=== PATIENT | male | born 1960 | race African-American/Black ===

== ENCOUNTER 2021-10-08 10:32 | Emergency (ER) | payer OTHER, SELFPAY ==
--- NOTE | ~2021-10-08 | XR_ITS ---
EXAMINATION: XR chest 1V portable DATE: 10/08/2021 12:31 INDICATION: Fall. COVID-19 positive. TECHNIQUE: A single frontal view of the chest was obtained. COMPARISON: None. FINDINGS: The chest demonstrates clear lungs without pneumonia, pleural effusion, or pneumothorax. Th e heart size is normal. Median sternotomy wires are noted. IMPRESSION: 1. No acute cardiopulmonary disease. Reviewed, dictated and finalized at location A. T PLANT RESEARCH TECHNICIAN
--- NOTE | ~2021-10-08 | CT_ITS ---
EXAMINATION: CT brain wo con EXAM DATE: 10/08/2021 11:55 INDICATION: Fall, head injury. TECHNIQUE: Spiral CT of the head was performed without contrast. Axial, coronal and sagittal images were reviewed. The dose-length product (DLP) for this examination was 605.33 mGy-cm. The exposure w as tailored according to patient size, and iterative reconstruction (ASIR) was used as additional dos e reduction technique. There is no prior study for comparison. FINDINGS: There is no acute intraparenchymal hemorrhage. No evidence of intraparenchymal brain mass lesion. No evidence of acute infarction. Please note that initial head CT has limited sensitivity f or small or acute infarctions. Moderate size old right temporoparietal lobe infarction. There is mi ld periventricular and subcortical hypodensity, nonspecific but probably related to small vessel isch emic disease. There is moderate prominence of the sulci and ventricles related to cerebral atrophy. There is intracranial carotid arteriosclerosis. There are no extra-axial collections. There is n o mass effect or midline shift. The orbits are unremarkable. Soft tissue is unremarkable. The visu alized sinuses and mastoid air cells are well aerated. IMPRESSION: 1. No acute intracranial findings. 2. Chronic age related findings. 3. Moderate-sized old right temporoparietal lobe infarction. Reviewed, dictated and finalized at location G. ER HELPER
[2021-10-08 10:35] VITALS: BP 90/55; PULSE 69; RESP 15; TEMP 36.2; O2SAT 100
--- NOTE | 2021-10-08 10:59 | ED.FALL ---
HPI - Fall General Chief Complaint: Fall Stated Complaint: fall Time Seen by Provider: 10/08/21 10:34 Source: patient Mode of arrival: EMS Limitations: language barrier History of Present Illness HPI Narrative: Patient is a 60-year-old male presenting to our facility after he slipped out of a chair at a correction. Patient was brought in for evaluation via EMS. Patient is nonverbal at baseline. Per chart review, patient was recently hospitalized at [facility], [place]. He has a history of hypertension, chronic kidney disease, type 2 diabetes, CVA with dysphagia. Of note, he is Covid positive. I spoke to the nurse at the facility, and she states that the patient was found on the floor near to his wheelchair as if he had slipped out of the chair this morning. Pt was alert. No vomiting. He did eat breakfast this morning. Pt otherwise acting normally. At bedside, patient can answer simple questions, follows commands. No focal deficits on exam. History otherwise is limited secondary to his difficulty with speech. Related Data Home Medications Medication Instructions Recorded Confirmed Lactobacillus acidoph-pectin 1 cap PO DAILY 10/08/21 [Acidophilus-Pectin] acetaminophen 500 mg PO Q4H PRN 10/08/21 atorvastatin 40 mg PO DAILY 10/08/21 citalopram 20 mg PO DAILY 10/08/21 famotidine 20 mg PO DAILY 10/08/21 ferrous sulfate 325 mg PO DAILY 10/08/21 hydroxyzine HCl 50 mg PO HS 10/08/21 insulin detemir U-100 [Levemir 18 unit SUBCUT HS 10/08/21 FlexTouch U-100 Insuln] lisinopril 5 mg PO DAILY 10/08/21 metformin 750 mg PO BID 10/08/21 mupirocin 1 applic TOPICAL BID 10/08/21 risperidone 2 mg PO BID 10/08/21 sulfamethoxazole-trimethoprim 1 tablet PO Q12H 10/08/21 Allergies Allergy/AdvReac Type Severity Reaction Status Date / Time No Known Allergies Allergy Verified 10/08/21 10:39 Review of Systems Review of Systems: ROS unobtainable: Yes unobtainable due to medical condition (dysphagia, cva) Exam Narrative: GENERAL: Awake, alert, minimally verbal HEAD: Normocephalic, atraumatic. EYES: PERRLA and EOMI. ENT: Nares clear, no rhinorrhea or epistaxis. Mucous membranes moist. NECK: Supple. CHEST: No respiratory distress, breathing even and non labored HEART: Regular rate, sinus rhythm ABDOMEN:Non distended, does not grimace with palpation of the abdomen EXTREMITIES: Normal range of motion. No edema. SKIN: Warm, dry, no rash. NEURO:No focal deficits. Alert and oriented x1 Course Vital Signs Vital signs: Vital Signs Temperature 36.2 C L 10/08/21 10:35 Pulse Rate 69 10/08/21 10:35 Respiratory Rate 15 10/08/21 10:35 Blood Pressure 90/55 L 10/08/21 10:35 Pulse Oximetry 100 10/08/21 10:35 Temperature 36.2 C L 10/08/21 10:35 Pulse Rate 81 10/08/21 13:55 Respiratory Rate 20 10/08/21 13:55 Blood Pressure 151/82 H 10/08/21 13:55 Pulse Oximetry 99 10/08/21 13:55 MDM - Fall MDM Narrative Medical decision making narrative: Patient presenting for evaluation after he may have fallen from his wheelchair. At the time of his chest pain, ABCs are intact, vital signs are notable for mild hypotension. Patient is otherwise mentating at baseline, not really able to participate much in the history secondary to his CVA, aphasia, but is able to answer some simple questions, denies any pain, states he needs to go to the bathroom. Laboratory results are reassuring. Mild anemia. No electrolyte derangement. Chest x-ray is without acute cardiopulmonary abnormality, this is reassuring especially given the patient's Covid diagnosis. Patient's hypotension improved following administration of IV fluids. He is afebrile. There is no leukocytosis. Low suspicion for urinary tract infection as patient is altered, febrile, cardiac, does not have any reported pain. I did speak with the care facility, they he has not had any nausea, vomiting, fever or other concerning symptoms. They wanted to ensure he was
--- NOTE | 2021-10-08 11:27 | ECG_ITS ---
Measurements Intervals [place] Rate: 75 P: 90 [place]: 140 QRS: 54 QRSD: 90 T: 96 QT: 427 QTc: 478 Interpretive Statements SINUS RHYTHM MODERATE T-WAVE ABNORMALITY, CONSIDER ANTERIOR ISCHEMIA [-0.1+ mV T WAVE IN V3/V4] ANTEROSEPTAL ST ABNORMALITY, CONSIDER INJURY PATTERN NO PREVIOUS ECG AVAILABLE FOR COMPARISON Electronically Signed On 10-08-2021 13:42:04 ORTHOPEDICS TEACHER by Travis Gonzales M.D.
[2021-10-08] MEDS: SODIUM CHLORIDE 0.9% IV 1,000 ML 999 ML IV CONT (12:45)
[2021-10-08 13:11] LABS: Basophils Percent Auto 0.4 % (0.2-1.2); Eosinophils Absolute Auto 0.3 K/mm3 (0-0.3); Eosinophils Percent Auto 3.1 % (0-4.4); Hematocrit 32.4 % (42.0-52.0); Immature Granulocyte Absolute 0.03 K/mm3 (0.00-0.031); Immature Granulocyte Percent A 0.3 % (0-0.5); Mean Corpuscular HGB Conc 30.9 g/dl (32-36); Mean Corpuscular Volume 87.6 fl (80-100); Mean Platelet Volume 9.3 fl (7.4-10.4); Monocytes Absolute Auto 0.7 K/mm3 (0.1-0.6); Neutrophils Percent Auto 76.2 % (45.5-73.1); Platelet Count Result 360 k/mm3 (150-375); Red Cell Distribution Width 13.4 % (11.5-14.5); White Blood Count 9.2 K/mm3 (4.5-10.0)
[2021-10-08 13:20] LABS: Anion Gap 6 mmol/L (8-16); Blood Urea Nitrogen 19 mg/dL (9-20); Calcium 8.8 mg/dL (8.4-10.2); Carbon Dioxide 27 mmol/L (22-30); Chloride 105 mmol/L (98-107); Estimated CRCL calculation 65 ml/min; Estimated Glomerular Filt Rate > 60; Glucose 210 mg/dL (65-110); Potassium 4.4 mmol/L (3.4-5.0); Sodium 138 mmol/L (137-145)
[2021-10-08 13:55] VITALS: BP 151/82; PULSE 81; RESP 20; O2SAT 99
--- NOTE | 2021-10-08 14:00 | PC.NURSE ---
This nurse gave report to Raven at [facility] for the pt discharge and received verbal understanding
--- NOTE | 2021-10-08 14:10 | PC.NURSE ---
Pt found standing up, naked at the side of the bed. Pt found by charge nurse Mattie MEYERS. This nurse and Mattie MEYERS redirected pt back into the bed and instructed the pt to stay in the bed. Pt minimally redirectable, placed on a bed alarm, and a sitter is now at the bedside for observation.
[2021-10-08 14:51] VITALS: BP 134/85; PULSE 76; RESP 16; O2SAT 100
[2021-10-08 18:17] VITALS: BP 151/86; PULSE 67; RESP 18; O2SAT 99
--- NOTE | 2021-10-08 19:03 | PC.NURSE ---
called mast eta 1425, eta 1425, mast here 1539/called away due to 911 call, updated 1750 eta at 1835, update 1900 eta 15 to 20 min.
== END 2021-10-08 19:20 ==
PROVIDERS: Emergency Provider Emergency Medicine; PCP Pediatrics Neonatal-Perinatal Medicine
DX: I95.9 Hypotension, unspecified (principal); U07.1 COVID-19; I12.9 Hypertensive chronic kidney disease with stage 1 through stage 4 chronic kidney disease, or unspecified chronic kidney disease; E11.22 Type 2 diabetes mellitus with diabetic chronic kidney disease; N18.9 Chronic kidney disease, unspecified; Z79.4 Long term (current) use of insulin; W19.XXXA Unspecified fall, initial encounter
CPT/HCPCS: 36415; 70450; 71045; 80048; 85025; 93005; 96360; 96361; 99284; J7030

== ENCOUNTER 2021-10-16 22:15 | Emergency (ER) | payer OTHER, SELFPAY ==
--- NOTE | ~2021-10-16 | CT_ITS ---
EXAMINATION: CT brain wo con DATE: 10/16/2021 22:46 INDICATION: Altered mental status TECHNIQUE: Computed tomography (CT) of the head was performed without intravenous contrast. Sagittal and coronal reconstructions were performed. The mA was adjusted according to patient size. Iterative reconstruction technique was employed. The dose-length product was 605.33 mGy-cm. COMPARISON: head CT dated 10/08/2021. FINDINGS: Again seen is a moderate-sized region of encephalomalacia in the right temporoparietal region consist ent with chronic infarct. Additional unchanged small old lacunar infarct at the left basal ganglia in volving the lentiform nucleus, anterior limb of the internal capsule and head of the caudate nucleus. No acute intracranial hemorrhage, acute infarction or abnormal extra axial fluid collection. Symmetr ic prominence of the sulci and ventricles consistent with mild age-appropriate diffuse cerebral volum e loss. No mass/mass effect. The orbits, paranasal sinuses and mastoid air cells are normal. Intracra nial calcified cerebral atherosclerosis is noted. IMPRESSION: 1. No acute intracranial process. 2. Old infarcts in the right temporoparietal region and left basal ganglia. Reviewed, dictated and finalized at location A. HINGE AND LOCK ATTACHER
--- NOTE | ~2021-10-16 | XR_ITS ---
EXAMINATION: XR chest 1V portable DATE: 10/16/2021 22:35 INDICATION: Transient alteration of awareness TECHNIQUE: frontal view of the chest was obtained. COMPARISON: Chest radiograph dated 10/08/2021 FINDINGS: No airspace opacities, pulmonary edema, pleural effusion or pneumothorax. The cardiomediastinal silho uette is normal. Median sternotomy wires and mediastinal surgical clips are seen, likely from prior c oronary artery bypass grafting. There is also coronary artery stenting. IMPRESSION: 1. No acute cardiopulmonary disease. Reviewed, dictated and finalized at location A. OR QA ANALYST
[2021-10-16 22:14] VITALS: BP 135/74; PULSE 70; RESP 20; TEMP 36.8; O2SAT 99
--- NOTE | 2021-10-16 22:22 | ECG_ITS ---
Measurements Intervals [place] Rate: 71 P: 73 [place]: 142 QRS: 19 QRSD: 90 T: 104 QT: 405 QTc: 441 Interpretive Statements SINUS RHYTHM ANTEROSEPTAL ST ABNORMALITY, CONSIDER ISCHEMIA ABNORMAL ECG COMPARED TO ECG 10/08/2021 12:58:45 NO SIGNIFICANT CHANGES Electronically Signed On 10-17-2021 13:52:12 EXHIBITS COORDINATOR by Neil Clifford M.D.
--- NOTE | 2021-10-16 22:51 | ED.NEUROSD ---
HPI - Neuro Symptoms/Deficit General Chief Complaint: Suspected CVA Stated Complaint: code stroke, lkw 1600 Time Seen by Provider: 10/16/21 22:15 Source: EMS Mode of arrival: EMS Limitations: dementia History of Present Illness HPI Narrative: This is a 60 year old male with history CVA who presents for evaluation of altered mental status. It was reported that patient is normally oriented to 1 only. It is reported that he performed physical therapy at 4 pm and that is his reported last known normal. EMS reported staff states patient had unequal medical science liaison strength and he is not acting normally. Patient will not follow commands. According to [facility] notes, they have been performed q 6 hour neuro checks for 3 days for some reason. Related Data Home Medications Medication Instructions Recorded Confirmed Lactobacillus acidoph-pectin 1 cap PO DAILY 10/08/21 [Acidophilus-Pectin] acetaminophen 500 mg PO Q4H PRN 10/08/21 atorvastatin 40 mg PO DAILY 10/08/21 citalopram 20 mg PO DAILY 10/08/21 famotidine 20 mg PO DAILY 10/08/21 ferrous sulfate 325 mg PO DAILY 10/08/21 hydroxyzine HCl 50 mg PO HS 10/08/21 insulin detemir U-100 [Levemir 18 unit SUBCUT HS 10/08/21 FlexTouch U-100 Insuln] lisinopril 5 mg PO DAILY 10/08/21 metformin 750 mg PO BID 10/08/21 mupirocin 1 applic TOPICAL BID 10/08/21 risperidone 2 mg PO BID 10/08/21 sulfamethoxazole-trimethoprim 1 tablet PO Q12H 10/08/21 Allergies Allergy/AdvReac Type Severity Reaction Status Date / Time No Known Allergies Allergy Verified 10/08/21 10:39 Review of Systems Review of Systems: ROS unobtainable: Yes unobtainable due to mental status PMFSH Past Medical History Medical History (Updated 10/17/21 @ 00:54 by Melba De Jesus MD) Chronic kidney disease CVA (cerebral vascular accident) Diabetes Dysphagia Hypertension Exam Const: General: no acute distress Nutritional Appearance: well nourished Orientation/consciousness: Other orientation findings (will track but is not talking) Limitations: altered mental status HENMT: Ears: TM's normal bilaterally Face and sinus: face symmetric Eyes: Pupils: Equal, round and reactive pupils present EOM: EOMs intact bilaterally Resp: Effort & Inspection: normal respiratory effort Auscultation: clear to auscultation bilaterally Cardio: Jugular venous distension: no JVD GI: GI Palp: Yes Soft to palpation, No Tenderness to palpation present (GI) and No Guarding due to palpation present (GI) Neuro: General: Unable to assess gait Cranial nerves: Yes Equal, round and reactive pupils present, Yes Bilaterally intact EOM present and Yes Normal facial strength present Motor exam (neuro): Other motor observations present (hold both arms up, no drift) Course Reevaluation(s) Reevaluation #1: Patient is alert and oriented to person. He states he is at doctors' office. He is able to follow some commands. He has equal medical science liaison strength. non focal exam. Nursing called [facility] and they report sometimes patient will just not talk to anyone. They states physical therapy thought patient was leaning to left but no definite deficit seen. Patient's labs are stable. He appears to be at baseline. Will discharge back to [facility]. Date: 10/17/21 Time: 00:51 Vital Signs Vital signs: Vital Signs Temperature 98.2 F 10/16/21 22:14 Pulse Rate 70 10/16/21 22:14 Respiratory Rate 20 10/16/21 22:14 Blood Pressure 135/74 10/16/21 22:14 Pulse Oximetry 99 10/16/21 22:14 Temperature 97.4 F L 10/17/21 00:40 Pulse Rate 63 10/17/21 00:40 Respiratory Rate 20 10/17/21 00:40 Blood Pressure 135/75 10/17/21 00:40 Pulse Oximetry 97 10/17/21 00:40 MDM - Neuro Symptoms/Deficit Lab Data Attestation: I reviewed the patient's lab results. Result diagrams: 10/16/21 22:52 10/16/21 22:52 Labs: Lab Results 10/16/21 10/16/21 10/16/21 Range/Units 22
[2021-10-16 22:54] VITALS: PULSE 66; RESP 16; O2SAT 100
[2021-10-16] MEDS: SODIUM CHLORIDE 0.9% IV 1,000 ML 999 ML IV CONT (22:54)
[2021-10-16 22:55] VITALS: BP 138/85; PULSE 65; RESP 16; O2SAT 100
[2021-10-16 23:00] LABS: Basophils Absolute Auto 0.1 K/mm3 (0.0-0.1); Basophils Percent Auto 1.5 % (0.2-1.2); Eosinophils Absolute Auto 0.4 K/mm3 (0-0.3); Eosinophils Percent Auto 6.1 % (0-4.4); Hematocrit 29.6 % (42.0-52.0); Hemoglobin 9.3 g/dL (14.0-18.0); Immature Granulocyte Absolute 0.03 K/mm3 (0.00-0.031); Immature Granulocyte Percent A 0.4 % (0-0.5); Lymphocytes Absolute Auto 1.53 K/mm3 (0.9-3.2); Lymphocytes Percent Auto 22.8 % (18.3-44.2); Mean Corpuscular HGB Conc 31.4 g/dl (32-36); Mean Corpuscular Hemoglobin 27.9 pg (26-34); Mean Corpuscular Volume 88.9 fl (80-100); Mean Platelet Volume 9.3 fl (7.4-10.4); Monocytes Absolute Auto 0.7 K/mm3 (0.1-0.6); Monocytes Percent Auto 10.3 % (2.6-8.5); Neutrophils Percent Auto 58.9 % (45.5-73.1); Platelet Count Result 346 k/mm3 (150-375); Red Blood Count 3.33 M/mm3 (4.6-6.20); Red Cell Distribution Width 13.5 % (11.5-14.5); White Blood Count 6.7 K/mm3 (4.5-10.0)
[2021-10-16 23:10] LABS: INR 1.2; Prothrombin Time 14.7 Seconds (11.1-14.7)
[2021-10-16 23:11] LABS: Partial Thromboplastin Time 33.3 SECONDS (22.3-36.8)
[2021-10-16 23:12] LABS: Lactic Acid Reflex 1.2 mmol/L (0.7-2.1)
[2021-10-16 23:13] LABS: Alanine Aminotransferase 14 U/L (4-50); Albumin Level 3.2 g/dL (3.5-5.1); Alkaline Phosphatase 111 U/L (38-126); Anion Gap 3 mmol/L (8-16); Aspartate Amino Transferase 21 U/L (17-59); Bilirubin,Total 0.5 mg/dL (0.2-1.3); Blood Urea Nitrogen 22 mg/dL (9-20); Calcium 8.3 mg/dL (8.4-10.2); Carbon Dioxide 30 mmol/L (22-30); Chloride 104 mmol/L (98-107); Estimated Glomerular Filt Rate > 60; Glucose 235 mg/dL (65-110); Potassium 4.2 mmol/L (3.4-5.0); Sodium 137 mmol/L (137-145)
[2021-10-16 23:14] LABS: Ammonia < 9 umol/L (9-30)
[2021-10-16 23:23] LABS: Lipase 45 U/L (23-300)
[2021-10-16 23:36] LABS: Troponin I < 0.012 ng/mL (0.000-0.034)
[2021-10-16 23:43] VITALS: PULSE 81; RESP 18
[2021-10-16 23:45] VITALS: PULSE 73; RESP 12
[2021-10-17 00:01] VITALS: BP 145/74; PULSE 62; RESP 16
[2021-10-17 00:10] VITALS: PULSE 81; RESP 16
[2021-10-17 00:12] LABS: Add Urine Microscopic? YES; Appearance Urine Clear (Clear); Bilirubin Urine Negative (Negative); Blood Urine Negative (Negative); Color Urine Yellow (Yellow); Glucose Urine UA 3+ mg/dL (Negative); Ketones Urine Negative (Negative); Leukocyte Esterase Ur Negative LEU/UL (Negative); Mucus Urine Rare /lpf; Nitrate Urine Negative (Negative); Protein Urine Negative (Negative); RBC Urine 0-2 /hpf (0-2); Specific Grav Ur 1.024 (1.001-1.035); WBC Urine 0-3 /hpf
[2021-10-17 00:15] VITALS: PULSE 62; RESP 13
[2021-10-17 00:40] VITALS: BP 135/75; PULSE 63; RESP 20; TEMP 36.3; O2SAT 97
[2021-10-17 06:22] LABS: Glucose Point of Care 225 mg/dl (65-105)
== END 2021-10-17 01:20 ==
PROVIDERS: Emergency Provider General Practice; PCP Pediatrics Neonatal-Perinatal Medicine
DX: R41.82 Altered mental status, unspecified (principal); I12.9 Hypertensive chronic kidney disease with stage 1 through stage 4 chronic kidney disease, or unspecified chronic kidney disease; E11.22 Type 2 diabetes mellitus with diabetic chronic kidney disease; N18.9 Chronic kidney disease, unspecified; Z79.4 Long term (current) use of insulin
CPT/HCPCS: 36415; 51701; 70450; 71045; 80053; 81001; 82140; 82948; 83605; 83690; 84484; 85025; 85610; 85730; 93005; 96360; 99284; J7030

== ENCOUNTER 2021-12-27 18:26 | Emergency (ER) | payer OTHER, SELFPAY ==
[2021-12-27] VITALS (10 sets, daily range): BP systolic 113–163; BP diastolic 62–85; PULSE 73; RESP 18; TEMP 35.8; O2SAT 98–100
--- NOTE | ~2021-12-27 | XR_ITS ---
EXAMINATION: XR chest 1V portable DATE: 12/27/2021 19:30 INDICATION: Fall from wheelchair. TECHNIQUE: A single frontal view of the chest was obtained. COMPARISON: Chest single view 10/16/2021 FINDINGS: The chest demonstrates clear lungs without pneumonia, pleural effusion, or pneumothorax. Th e heart size is normal. Median sternotomy wires and mediastinal surgical clips are seen, likely from prior coronary artery bypass grafting. IMPRESSION: 1. No acute cardiopulmonary disease. Reviewed, dictated and finalized at location A.
--- NOTE | ~2021-12-27 | CT_ITS ---
EXAMINATION: CT abdomen pelvis w con DATE: 12/27/2021 23:48 INDICATION: Leukocytosis, nausea and vomiting TECHNIQUE: Computed tomography (CT) of the abdomen and pelvis was performed with 100 mL Omnipaque-300 intravenous contrast. Automated exposure control and iterative reconstruction technique were employe d. The dose-length product was 505.26 mGy-cm. COMPARISON: None FINDINGS: Minimal dependent atelectasis in the bilateral lower lobes. Heart size is normal. Atherosclerotic cor onary artery calcification. Median sternotomy wires and mediastinal clips consistent with coronary ar karina bypass grafting. No pericardial or pleural effusion. Liver, gallbladder, spleen, pancreas, bilat eral adrenal glands and kidneys are normal. No bowel obstruction. There are scattered colonic diverti cula. There are multiple foci of gas surrounded by fat attenuation along the cephalad margin of the t ransverse colon assessment of which is limited by some motion artifact. Is unclear whether these foci of gas are within diverticula or extraluminal potentially related to perforated diverticulitis. Ther e is no free intraperitoneal gas along the nondependent anterior abdominal wall or evident surroundin g inflammatory stranding. No evident portal venous gas. Bladder is normal. No abscess or free intrape ritoneal gas. No pathologically enlarged abdominal or pelvic lymphadenopathy. Transcervical fracture of the proximal right femur with external rotation and 2.5 cm proximal migration of the fracture. The femoral head remains normally located in the left acetabulum. There are smooth subtly sclerotic kelly ins to portions of the ununited fractures suggesting that a subacute. IMPRESSION: 1. Several foci of gas along the cephalad margin of the transverse colon which . Extend beyond the no rmal lumen. Unclear whether these are within diverticula or extending into the omental fat such as in the situation of perforated diverticulitis. No chiara free intraperitoneal gas or portal venous gas i dentified. 2. Displaced and ununited likely subacute transcervical fracture of the proximal right femur. Reviewed, dictated and finalized at location B. IMPRESSION: 1. Several foci of gas along the cephalad margin of the transverse colon which . Extend beyond the normal lumen. Unclear whether these are within diverticula or extending into the omental fat such as in the situation of perforated divert iculitis. No chiara free intraperitoneal gas or portal venous gas identified. 2. Displaced and ununited likely subacute transcervical fracture of the proxima l right femur.
--- NOTE | ~2021-12-27 | CT_ITS ---
EXAMINATION: CT brain wo con DATE: 12/27/2021 19:44 INDICATION: Altered mental status. Fall. TECHNIQUE: Computed tomography (CT) of the head was performed without intravenous contrast. The mA wa s adjusted according to patient size. Iterative reconstruction technique was employed. The dose-lengt h product was 605.33 mGy-cm. COMPARISON: Head CT 10/16/2021 FINDINGS: There are infarcts involving left temporal occipital region and left thalamus, new from 10/16. There is an old infarct in right temporal parietal occipital region. There are old infarcts in the thalami. There is an old infarct in the left basal ganglia. There is no intracranial hemorrhage or abnormal intracranial mass lesion. The ventricles are normal in size. The paranasal sinuses are cl ear. The mastoid air cells are normal. The orbits are normal. IMPRESSION: 1. Infarcts involving the left temporal occipital region and left thalamus, new from 10/16/2021, likely subacute. 2. Old infarcts involving the right temporal parietal occipital region, thalami, and left basal gangl ia. Reviewed, dictated and finalized at location A. IMPRESSION: 1. Infarcts involving the left temporal occipital region and left thalamus, new from 10/16/2021, likely subacute. 2. Old infarcts involving the right temporal parietal occipital region, thalami , and left basal ganglia.
--- NOTE | 2021-12-27 19:30 | PC.NURSE ---
Report to MIRA Neff, to continue care.
--- NOTE | 2021-12-27 20:01 | ED.FALL ---
HPI - Fall General Chief Complaint: Fall Stated Complaint: AMS, GLF X 2 Time Seen by Provider: 12/27/21 19:00 Source: EMS, RN notes reviewed and old records reviewed History of Present Illness HPI Narrative: Patient presents after a fall with confusion. Patient came from a nursing facility reported he fell out of his chair and is acting unusual for him. The halfway reports he slid out of his wheelchair they are unsure if he actually struck the ground. He is normally alert and oriented x1 occasionally following commands. Per nursing facility he sometimes chooses not to speak to people. Related Data Home Medications Medication Instructions Recorded Confirmed acetaminophen 500 mg PO Q4H PRN 10/08/21 atorvastatin 40 mg PO DAILY 10/08/21 citalopram 20 mg PO DAILY 10/08/21 famotidine 20 mg PO DAILY 10/08/21 ferrous sulfate 325 mg PO DAILY 10/08/21 hydroxyzine HCl 50 mg PO HS 10/08/21 insulin detemir U-100 [Levemir 18 unit SUBCUT HS 10/08/21 FlexTouch U-100 Insuln] lisinopril 5 mg PO DAILY 10/08/21 risperidone 2 mg PO BID 10/08/21 Novolog U-100 Insulin aspart 12/27/21 12/27/21 Zofran 12/27/21 cholecalciferol (vitamin D3) 12/27/21 12/27/21 glipizide mg 12/27/21 metformin mg 12/27/21 Allergies Allergy/AdvReac Type Severity Reaction Status Date / Time No Known Allergies Allergy Verified 12/27/21 18:56 Review of Systems Review of Systems: ROS unobtainable: Yes unobtainable due to mental status (Patient does not answer any questions.) [facility] Past Medical History Medical History Chronic kidney disease CVA (cerebral vascular accident) Diabetes Dysphagia Hypertension Exam Narrative: GENERAL: Well-appearing, well-nourished, and in no acute distress. HEAD: Normocephalic, atraumatic. EYES: PERRLA and EOMI. ENT: Nares clear, no rhinorrhea or epistaxis. Mucous membranes moist. NECK: Supple. No masses. CHEST: Clear to auscultation. No respiratory distress. No wheezes rales or rhonchi HEART: Regular rate and rhythm. No murmur heard. Normal peripheral pulses. ABDOMEN: Soft, nontender, nondistended, normal active bowel sounds. EXTREMITIES: Normal range of motion. No edema. SKIN: Warm, dry, no rash. NEURO: Moves all extremities no facial asymmetry alert PSYCH: Normal mood and affect. Course Reevaluation(s) Reevaluation #1: Patient has been following commands labs show a leukocytosis with left shift. Patient was been vomiting in the ER. CT of his abdomen has been ordered patient is being treated supportively. Date: 12/27/21 Time: 23:48 Vital Signs Vital signs: Vital Signs Temperature 35.8 C L 12/27/21 18:40 Pulse Rate 73 12/27/21 18:40 Respiratory Rate 18 12/27/21 18:40 Blood Pressure 118/73 12/27/21 18:40 Pulse Oximetry 98 12/27/21 18:40 Temperature 35.8 C L 12/27/21 18:40 Pulse Rate 73 12/27/21 18:40 Respiratory Rate 18 12/27/21 18:40 Blood Pressure 118/73 12/27/21 18:40 Pulse Oximetry 98 12/27/21 18:40 MDM - Fall MDM Narrative Medical decision making narrative: Patient presented for a fall. Labs and imaging obtained. Labs notable for slight elevation in potassium and white count. Imaging with possible colitis otherwise major injury was clinically unremarkable for acute process. Patient had a nonacute abdomen on exam. Patient was monitored in the ER for several hours was given fluids and supportive therapies. He did have couple episodes of emesis which resolved. Fall remains of unclear etiology, vomiting white count imaging findings may represent early infectious process. Patient's vital signs are normal he is appropriate for trial of outpatient supportive therapies. Lab Data Result diagrams: 12/27/21 20:06 12/27/21 20:05 Labs: Lab Results 12/27/21 12/27/21 12/27/21 Range/Units 20:05 20:06 20:07 WBC 12.6 H (4.5-10.0) K/mm3 RBC 4.07 L (4.6-6.20) M
[2021-12-27 20:41] LABS: Creatine Kinase 332 U/L (55-170)
[2021-12-27 20:42] LABS: Ammonia < 9 umol/L (9-30)
[2021-12-27 20:43] LABS: Lactic Acid Reflex 2.6 mmol/L (0.7-2.0)
[2021-12-27 20:56] LABS: Add Urine Microscopic? YES; Appearance Urine Clear (Clear); Bilirubin Urine Negative (Negative); Blood Urine Negative (Negative); Color Urine Yellow (Yellow); Glucose Urine UA Negative (Negative); Ketones Urine Trace mg/dL (Negative); Leukocyte Esterase Ur Negative LEU/UL (Negative); Nitrate Urine Negative (Negative); Protein Urine 1+ mg/dL (Negative); Specific Grav Ur >= 1.030 (1.001-1.035); Urobilinogen Urine 0.2 mg/dL (<2.0)
--- NOTE | 2021-12-27 22:13 | PC.NURSE ---
Emily from [facility] called to get an update on the patient
[2021-12-27 22:19] LABS: Basophils Absolute Auto 0.1 K/mm3 (0.0-0.1); Basophils Percent Auto 0.6 % (0.2-1.2); Eosinophils Absolute Auto 0.2 K/mm3 (0-0.3); Eosinophils Percent Auto 1.6 % (0-4.4); Hematocrit 35.5 % (42.0-52.0); Hemoglobin 10.9 g/dL (14.0-18.0); Immature Granulocyte Absolute 0.07 K/mm3 (0.00-0.031); Immature Granulocyte Percent A 0.6 % (0-0.5); Lymphocytes Absolute Auto 0.94 K/mm3 (0.9-3.2); Lymphocytes Percent Auto 7.4 % (18.3-44.2); Mean Corpuscular HGB Conc 30.7 g/dl (32-36); Mean Corpuscular Hemoglobin 26.8 pg (26-34); Mean Corpuscular Volume 87.2 fl (80-100); Mean Platelet Volume 9.9 fl (7.4-10.4); Monocytes Absolute Auto 0.9 K/mm3 (0.1-0.6); Monocytes Percent Auto 7.3 % (2.6-8.5); Neutrophils Absolute Auto 10.4 K/mm3 (1.3-6.7); Neutrophils Percent Auto 82.5 % (45.5-73.1); Platelet Count Result 385 k/mm3 (150-375); Red Blood Count 4.07 M/mm3 (4.6-6.20); Red Cell Distribution Width 12.8 % (11.5-14.5); White Blood Count 12.6 K/mm3 (4.5-10.0)
[2021-12-27 22:25] LABS: Alanine Aminotransferase 17 U/L (6-50); Albumin Level 4.1 g/dL (3.5-5.1); Alkaline Phosphatase 153 U/L (38-126); Anion Gap 8 mmol/L (8-16); Aspartate Amino Transferase 27 U/L (17-59); Bilirubin,Total 0.6 mg/dL (0.2-1.3); Blood Urea Nitrogen 23 mg/dL (9-20); Calcium 8.8 mg/dL (8.4-10.2); Carbon Dioxide 26 mmol/L (22-30); Chloride 102 mmol/L (98-107); Estimated Glomerular Filt Rate > 60; Glucose 216 mg/dL (65-110); Potassium 5.1 mmol/L (3.4-5.0); Sodium 136 mmol/L (137-145)
[2021-12-27] MEDS: ONDANSETRON INJ 4 MG/2 ML VIAL IV PUSH (22:43)
[2021-12-27 23:26] LABS: Reflex Lactic Acid Yes or No Add Lactic
[2021-12-28 00:29] LABS: Lactic Acid 1.8 mmol/L (0.7-2.0)
[2021-12-28] MEDS: SODIUM CHLORIDE 0.9% IV 1,000 ML 999 ML IV CONT (01:12)
[2021-12-28 06:41] VITALS: BP 102/72; PULSE 72; RESP 16; O2SAT 98
== END 2021-12-28 07:52 ==
PROVIDERS: Emergency Provider Emergency Medicine; PCP Pediatrics Neonatal-Perinatal Medicine
DX: R11.2 Nausea with vomiting, unspecified (principal); D72.829 Elevated white blood cell count, unspecified; E87.5 Hyperkalemia; E11.22 Type 2 diabetes mellitus with diabetic chronic kidney disease; I12.9 Hypertensive chronic kidney disease with stage 1 through stage 4 chronic kidney disease, or unspecified chronic kidney disease; N18.9 Chronic kidney disease, unspecified; Z86.73 Personal history of transient ischemic attack (TIA), and cerebral infarction without residual deficits; Z79.84 Long term (current) use of oral hypoglycemic drugs; Z79.4 Long term (current) use of insulin; W07.XXXA Fall from chair, initial encounter
CPT/HCPCS: 36415; 70450; 71045; 74177; 80053; 81001; 82140; 82550; 83605; 85025; 96361; 96374; 99284; J2405; J7030; Q9967

== ENCOUNTER 2021-12-30 16:11 | Inpatient (IN) | payer OTHER, SELFPAY ==
[2021-12-30] VITALS (24 sets, daily range): BP systolic 118–160; BP diastolic 70–89; PULSE 73–95; RESP 13–21; TEMP 36.9–37; O2SAT 93–100
--- NOTE | ~2021-12-30 | CT_ITS ---
EXAMINATION: CT abdomen pelvis w con DATE: 01/01/2022 09:46 INDICATION: Unresponsive. TECHNIQUE: Computed tomography (CT) of the abdomen and pelvis was performed with 75 mL Omnipaque 300 intravenous contrast. Automated exposure control and iterative reconstruction technique were employed . The dose-length product was 752.16 mGy-cm. COMPARISON: CT abdomen and pelvis 12/27/2021 FINDINGS: The visualized portions of the lung bases demonstrate mild atelectasis. There are trace ple ural effusions. The heart size is normal. There are coronary artery calcifications. No pericardial ef fusion. There is bilateral gynecomastia. There are changes of median sternotomy. The liver, gallbladd er, spleen, pancreas, adrenal glands, and kidneys are normal. There is diverticulosis of the colon wi thout evidence of diverticulitis. The appendix is not visualized. There are no pathologically enlarge d lymph nodes. There is no free intraperitoneal fluid. There are changes of recent right hip arthropl asty. There is mild thoracolumbar spondylosis. IMPRESSION: 1. No etiology for the patient's symptoms. Reviewed, dictated and finalized at location A.
--- NOTE | ~2021-12-30 | XR_ITS ---
EXAMINATION: XR chest 1V DATE: 01/01/2022 10:29 INDICATION: Unresponsive. TECHNIQUE: A single frontal view of the chest was obtained. COMPARISON: Chest single view 12/30/2021, CT abdomen and pelvis 01/01/2022, thoracic spine CT 12/30/2021 FINDINGS: The chest demonstrates clear lungs without pneumonia, pleural effusion, or pneumothorax. Th e heart size is normal. Median sternotomy wires and mediastinal surgical clips are seen, likely from prior coronary artery bypass grafting. IMPRESSION: 1. No acute cardiopulmonary disease. Reviewed, dictated and finalized at location A.
--- NOTE | ~2021-12-30 | XR_ITS ---
XR pelvis 1-2V 12/30/2021 16:58 Indication: Status post fall. Right hip pain Procedure: AP pelvis Comparison: No prior studies for comparison. Findings: Pelvic rings are intact. Sacral foramen are symmetric. There is a displaced right femoral n eemterio fracture with varus angulation. There is extensive atherosclerosis of the pelvis and femoral vess els. Impression: 1: Displaced right femoral neck fracture with varus angulation. Reviewed, dictated and finalized at location A. Impression: 1: Displaced right femoral neck fracture with varus angulation.
--- NOTE | ~2021-12-30 | CT_ITS ---
EXAMINATION: CT brain wo con DATE: 01/01/2022 09:46 INDICATION: Unresponsive. Hip replacement yesterday. TECHNIQUE: Computed tomography (CT) of the head was performed without intravenous contrast. The mA wa s adjusted according to patient size. Iterative reconstruction technique was employed. Exam dose: 68 1.00 mGy-cm total exam DLP. COMPARISON: 12/30/2021, 12/27/2021, 10/16/2021 CT brain FINDINGS: Subacute left occipital infarct, stable since 12/30/2021. Chronic left thalamic and left basal ganglia lacunar infarcts and chronic posterior right temporal pa rietal occipital infarct. No intracranial mass lesion or hemorrhage or acute cerebrovascular accident is evident. CT is not sen sitive for detection of hyperacute nonhemorrhagic infarct. No midline shift or interval mass effect is noted No subdural or epidural, subarachnoid or parenchymal hemorrhage. There is central and cortical cerebral and cerebellar atrophy. The mastoid air cells and included paranasal sinuses are unremarkable. No fracture or bone destruction of the cranial vault. IMPRESSION: No significant change since 12/30/2021 Reviewed, dictated and finalized at Location A. Reviewed, dictated and finalized at location A.
--- NOTE | ~2021-12-30 | XR_ITS ---
EXAMINATION: XR hip RT min 2V DATE: 12/31/2021 16:23 INDICATION: Bipolar hip arthroplasty TECHNIQUE: 2 views right hip FINDINGS: There is a right bipolar hip arthroplasty in expected position. Subcutaneous gas with soft tissue swelling are consistent with recent surgery. IMPRESSION: 1. Recent right bipolar hip arthroplasty. Reviewed, dictated and finalized at location A.
--- NOTE | ~2021-12-30 | US_ITS ---
EXAMINATION: US carotid duplex BI DATE: 01/01/2022 11:15 INDICATION: Left temporal occipital and thalamic infarctions. TECHNIQUE: Grayscale, color Doppler, and pulsed Doppler images of the cervical carotid arteries were obtained. The degree of vessel stenosis is placed in one of the following categories: normal, <50%, 5 0-69%, >=70% but less than near-occlusion, near-occlusion, or total occlusion. Note that percent sten osis relative to normal distal artery lumen diameter is indirectly measured from velocity measurement s as described by Rafael, et al. Radiology 2003; 229:340-346. COMPARISON: None. FINDINGS: RIGHT: The right common carotid artery (CCA) peak systolic velocity (PSV) is 112 cm/s. The right internal ca rotid artery (ICA) PSV is 98 cm/s. The right ICA end-diastolic velocity (EDV) is 26 cm/s. The right I CA/CCA PSV ratio is 0.9. Grayscale and color Doppler images yield an estimate of <50% diameter reduct ion from plaque in the ICA. There is antegrade flow in the right vertebral artery. LEFT: The left CCA PSV is 107 cm/s. The left ICA PSV is 92 cm/s. The left ICA EDV is 24 cm/s. The left ICA/ CCA PSV ratio is 0.9. Grayscale and color Doppler images yield an estimate of <50% diameter reduction from plaque in the ICA. There is antegrade flow in the left vertebral artery. IMPRESSION: 1. <50% stenosis in the right internal carotid artery. 2. <50% stenosis in the left internal carotid artery. Reviewed, dictated and finalized at location A.
--- NOTE | ~2021-12-30 | CT_ITS ---
EXAMINATION: CT thoracic spine wo con DATE: 12/30/2021 16:49 INDICATION: fall . TECHNIQUE: Computed tomography (CT) of the thoracic spine was performed without intravenous contrast. Automated exposure control and iterative reconstruction technique were employed. The dose-length pro duct was 1365.38 mGy-cm. COMPARISON: None FINDINGS: Thoracic and abdominal aortic calcification. Mild ascending thoracic aortic dilation measur ing up to 3.6 cm. Heavy coronary artery calcification. Ill-defined right thyroid lobe asymmetry, poss ible 2.9 cm right inferior thyroid nodule. Thoracic kyphosis. Minimal multilevel degenerative disc di sease. Vertebral bodies aligned and vertebral body heights are maintained. Facets and posterior eleme nts are intact. IMPRESSION: 1. No acute fracture or traumatic malalignment in the thoracic spine. 2. Possible 2.9 cm right inferior thyroid nodule, recommend outpatient thyroid ultrasound for confirm ation and further characterization. Reviewed, dictated and finalized at location K. IMPRESSION: 1. No acute fracture or traumatic malalignment in the thoracic spine. 2. Possible 2.9 cm right inferior thyroid nodule, recommend outpatient thyroid ultrasound for confirmation and further characterization.
--- NOTE | ~2021-12-30 | CT_ITS ---
EXAMINATION: CT brain wo con DATE: 12/30/2021 16:47 INDICATION: Status post fall. History of CVA with aphasia. TECHNIQUE: Computed tomography (CT) of the head was performed without intravenous contrast. The dose- length product was 605.33 mGy-cm. Automated exposure control and iterative reconstruction technique w ere employed. COMPARISON: CT dated 12/27/2021 FINDINGS: There are is infarction of the left temporal and occipital lobes as well as the left thalam us. There is a chronic left lacunar infarction. Generalized atrophy. There are scattered moderate per iventricular and subcortical white matter changes, most likely related to small vessel ischemic disea se (microangiopathy). There is a chronic right posterior parietal infarction. Paranasal sinuses and m astoids are pneumatized. IMPRESSION: 1. Stable left temporal-occipital lobe and thalamic infarctions, likely subacute. 2: Overall, no significant change from prior examination. Reviewed, dictated and finalized at location A. IMPRESSION: 1. Stable left temporal-occipital lobe and thalamic infarctions, likely subacut e. 2: Overall, no significant change from prior examination.
--- NOTE | ~2021-12-30 | CT_ITS ---
EXAMINATION: CT cervical spine wo con DATE: 12/30/2021 16:49 INDICATION: Fall. Oriented only to person and unable to provide further detail. TECHNIQUE: Computed tomography (CT) of the cervical spine was performed without intravenous contrast. Automated exposure control and iterative reconstruction technique were employed. The dose-length pro duct was 460.13 mGy-cm. COMPARISON: None FINDINGS: Alignment is normal. Vertebral body heights are normal. No acute fracture. Moderate to severe disc he ight loss with moderate to severe uncovertebral osteoarthritis at C2-C3 through C6-C7. Posterior disc osteophyte complexes result in mild central canal stenosis at each of these levels. Mild disc height loss at C7-T1, T1-T2 and T2-T3. Multilevel mild to moderate bilateral cervical facet osteoarthritis. Moderate neural foraminal stenosis on the right at C2-C3 and C4-C5 and on the left at C2-C3 through C6-C7. Mild proximal foraminal stenosis at the remaining cervical levels. Atherosclerotic calcificati ons at the bilateral carotid bulbs. Multiple small foci of stranding groundglass density in the subcu taneous fat posterior to the skull base and posterior to the cervicothoracic junction likely represen ting contusions. Mild biapical pleural-parenchymal scarring. IMPRESSION: 1. Severe cervical spondylosis. No acute osseous abnormality. Reviewed, dictated and finalized at location B.
--- NOTE | ~2021-12-30 | XR_ITS ---
EXAMINATION: XR chest 1V DATE: 12/30/2021 16:58 INDICATION: Fall TECHNIQUE: frontal view of the chest was obtained. COMPARISON: Chest radiograph dated 12/27/2021 FINDINGS: The lungs remain clear with no focal airspace opacities, pulmonary edema, pleural effusion or pneumot horax. The cardiomediastinal silhouette is normal. Median sternotomy wires and ostial markers consist ent with prior coronary artery bypass grafting. Coronary artery stenting. IMPRESSION: No acute cardiopulmonary disease. Reviewed, dictated and finalized at location B.
--- NOTE | 2021-12-30 17:05 | ECG_ITS ---
Measurements Intervals [place] Rate: 74 P: 86 [place]: 127 QRS: 59 QRSD: 88 T: 85 QT: 403 QTc: 449 Interpretive Statements SINUS RHYTHM WITH SINUS ARRHYTHMIA NONSPECIFIC T-WAVE ABNORMALITY- HIGH LATERAL LEADS BASELINE ARTIFACT- I, II, III, AVR, AVL, AVF, V2-V4 BORDERLINE ECG Electronically Signed On 12-30-2021 20:03:51 CDT by Adan Cárdenas D.O.
[2021-12-30 17:29] LABS: Appearance Urine Clear (Clear); Bilirubin Urine 1+ (Negative); Blood Urine Trace-lysed (Negative); Color Urine Yellow (Yellow); Glucose Urine UA Trace mg/dL (Negative); Ketones Urine Trace mg/dL (Negative); Leukocyte Esterase Ur Negative LEU/UL (Negative); Nitrate Urine Negative (Negative); Protein Urine 2+ mg/dL (Negative); Specific Grav Ur >= 1.030 (1.001-1.035); pH Urine 5.5 (5.0-9.0)
[2021-12-30 17:33] LABS: Mucus Urine Few /lpf; Squamous Epithelial Cell Urine Rare /hpf (Few); WBC Urine 0-3 /hpf
[2021-12-30 17:35] LABS: Add Urine Microscopic? YES
[2021-12-30 17:48] LABS: Basophils Absolute Auto 0.1 K/mm3 (0.0-0.1); Basophils Percent Auto 0.5 % (0.2-1.2); Eosinophils Absolute Auto 0.3 K/mm3 (0-0.3); Eosinophils Percent Auto 2.1 % (0-4.4); Hematocrit 35.2 % (42.0-52.0); Hemoglobin 10.9 g/dL (14.0-18.0); Immature Granulocyte Absolute 0.06 K/mm3 (0.00-0.031); Immature Granulocyte Percent A 0.5 % (0-0.5); Lymphocytes Absolute Auto 1.09 K/mm3 (0.9-3.2); Lymphocytes Percent Auto 8.6 % (18.3-44.2); Mean Corpuscular Hemoglobin 27.1 pg (26-34); Mean Corpuscular Volume 87.6 fl (80-100); Mean Platelet Volume 9.4 fl (7.4-10.4); Monocytes Absolute Auto 1.2 K/mm3 (0.1-0.6); Monocytes Percent Auto 9.1 % (2.6-8.5); Neutrophils Absolute Auto 10.1 K/mm3 (1.3-6.7); Neutrophils Percent Auto 79.2 % (45.5-73.1); Platelet Count Result 346 k/mm3 (150-375); Red Blood Count 4.02 M/mm3 (4.6-6.20); Red Cell Distribution Width 13.1 % (11.5-14.5); White Blood Count 12.7 K/mm3 (4.5-10.0)
[2021-12-30 18:00] LABS: INR 1.2; Prothrombin Time 14.9 Seconds (11.1-14.7)
--- NOTE | 2021-12-30 18:00 | ED.FALL ---
HPI - Fall General Chief Complaint: Fall Stated Complaint: fall Time Seen by Provider: 12/30/21 16:18 Source: RN notes reviewed History of Present Illness HPI Narrative: Patient presents emergency department from [facility] for fall. Patient with previous history of CVA and is aphasic at baseline unable to give any history the patient was found next to his wheelchair at the nursing facility had a mild abrasion on his upper back no other noted further injuries were seen and the patient is unable to give any further details Related Data Home Medications Medication Instructions Recorded Confirmed acetaminophen 500 mg PO Q4H PRN 10/08/21 atorvastatin 40 mg PO DAILY 10/08/21 citalopram 20 mg PO DAILY 10/08/21 famotidine 20 mg PO DAILY 10/08/21 ferrous sulfate 325 mg PO DAILY 10/08/21 hydroxyzine HCl 50 mg PO HS 10/08/21 insulin detemir U-100 [Levemir 18 unit SUBCUT HS 10/08/21 FlexTouch U-100 Insuln] lisinopril 5 mg PO DAILY 10/08/21 risperidone 2 mg PO BID 10/08/21 Novolog U-100 Insulin aspart 12/27/21 12/27/21 Zofran 12/27/21 cholecalciferol (vitamin D3) 12/27/21 12/27/21 glipizide mg 12/27/21 metformin mg 12/27/21 Allergies Allergy/AdvReac Type Severity Reaction Status Date / Time No Known Allergies Allergy Verified 12/27/21 18:56 Review of Systems Review of Systems: ROS unobtainable: Yes unobtainable due to medical condition PMF Past Medical History Medical History Chronic kidney disease CVA (cerebral vascular accident) Diabetes Dysphagia Hypertension Social History Social History (Updated 12/30/21 @ 18:02 by Jama Franz DO) Smoking status: Never smoker Exam Narrative: APPEARANCE: No acute distress, nontoxic, resting in bed EYES: EOMI HEENT: Normocephalic, atraumatic, OMM RESPIRATORY: No respiratory distress Clear to auscultation bilaterally with no rhonchi wheezing or rales. CARDIOVASCULAR: Regular rate and rhythm without murmurs rubs or gallops. ABDOMINAL: Soft, nontender, nondistended, no rebound or guarding MUSCULOSKELETAl: No clubbing, cyanosis or edema. Patient does not follow commands when I lift up his arms he is able to hold them up or his leg bilateral dorsalis pedis pulse 2+ NEURO: Laying awake with eyes open in bed aphasic does not follow commands SKIN:: Warm, dry. No rashes l or lesions, superficial abrasion in the left upper back PSYCHIATRIC: Normal affect/mood, Course Course Emergency Course: Called and discussed with the patient's daughter states that the patient does walk but does not walk very much at the long term she states that the patient was at her house on November 30 on his birthday and was ambulating at that time with no difficulty. She states the patient has not had any recent hospitalizations states that he is aphasic at baseline and will minimally talk when she does he states he will answer yes to all questions but does not say any other words I reviewed the patient's previous CT scans from January 13, 2020 I also discussed with Dr. sosa and he was able to take the patient's thoracic spine imaging and review it compared to the CT abdomen and gas seen on CT abdomen pelvis is and diverticuli there is no acute perforation patient's strokes are new from October 2021 fracture of the right hip was also seen 12/27. Discussed Dr. Gallardo presentation work-up agrees with consult Discussed with Dr. Caba agrees with consult recommends no anticoagulation at this time as strokes are subacute Discussed with HUNTER Summers for Dr. Dixon reviewed with admission Discussed with patient and family results of workup and diagnosis. Discussed need for admission. Patient and family understand and agree to current treatment plan. I discussed with the daughter states she will be at the hospital tomorrow Vital Signs Vital signs: Vital Signs Pulse Rate 94 12/30/21 16:16 Respiratory Rate 15 12/30/21 16:16 Pulse Oximet
[2021-12-30 18:01] LABS: Partial Thromboplastin Time 33.5 SECONDS (22.3-36.8)
--- NOTE | 2021-12-30 18:22 | PC.NURSE ---
bilat. pedal pulses noted in both lower extremities. ERP made aware. sites marked.
[2021-12-30 18:36] LABS: Alanine Aminotransferase 20 U/L (6-50); Albumin Level 3.8 g/dL (3.5-5.1); Alkaline Phosphatase 143 U/L (38-126); Anion Gap 8 mmol/L (8-16); Aspartate Amino Transferase 47 U/L (17-59); Blood Urea Nitrogen 30 mg/dL (9-20); Calcium 8.7 mg/dL (8.4-10.2); Carbon Dioxide 26 mmol/L (22-30); Chloride 105 mmol/L (98-107); Estimated Glomerular Filt Rate > 60; Glucose 184 mg/dL (65-110); Potassium 4.8 mmol/L (3.4-5.0); Sodium 139 mmol/L (137-145)
[2021-12-30 19:40] LABS: Troponin I < 0.012 ng/mL (0.000-0.034)
[2021-12-30] MEDS: SODIUM CHLORIDE 0.9% IV 1,000 ML 999 ML IV CONT (20:37)
--- NOTE | 2021-12-30 20:54 | PC.NURSE ---
pt pulled SLN out, new one placed
--- NOTE | 2021-12-30 21:38 | ADMGEN ---
This patient, Dilshad Power, was admitted to 2 Medical Room 256-. Patient/family oriented to hospital policies and general routines including ID bracelet, bed and alarms, visiting hours, pain management, procedures, bathroom and other care routines, personal items, smoking policy, room service/diet, and visiting hours. Information on how to activate the Rapid Response Team has been discussed. Patient/Family are encouraged to report perceived risks to care and to ask questions if they do not understand what they are told or what they should do.
--- NOTE | 2021-12-30 21:42 | PM.IMHP ---
H&P: HPI History of Present Illness Date/Time: 12/30/21 21:42 Chief Complaint: Fall Narrative: This is a 61-year-old male with past medical history significant for stroke, aphasia, patient is wheelchair-bound and resides at long-term care facility he is brought to the emergency room after he was found laying by the side of his wheelchair. Most of the history has been obtained upon reviewing medical records as Mr. Chester is unable to give any history secondary to his multiple strokes and aphasia, in emergency room patient was found to have new stroke as evidenced on CT imaging of the head and x-rays of the hip showed a displaced subacute cervical neck of the right femur fracture. Patient has been admitted for further evaluation management and treatment. Review of Systems Review of Systems: Unobtainable as patient is aphasic [facility] Past Medical History Medical History Chronic kidney disease CVA (cerebral vascular accident) Diabetes Dysphagia Hypertension Family History Family History Father Acute myocardial infarction Congestive heart failure Mother Cerebrovascular accident Diabetes mellitus Grandparent Colon cancer Asthma Social History Social History Smoking status: Never smoker Alcohol intake: unknown Substance use: unknown Spiritual care concerns: No Meds Home Medications and Allergies Home Medications Medication Instructions Recorded Confirmed Type acetaminophen 500 mg tablet 500 mg PO Q4H PRN Pain 10/08/21 12/30/21 History atorvastatin 40 mg tablet 40 mg PO DAILY 10/08/21 12/30/21 History citalopram 40 mg tablet 40 mg PO DAILY 10/08/21 12/30/21 History famotidine 20 mg tablet 20 mg PO DAILY 10/08/21 12/30/21 History ferrous sulfate 325 mg (65 mg 325 mg PO DAILY 10/08/21 12/30/21 History iron) tablet hydroxyzine HCl 50 mg tablet 50 mg PO HS 10/08/21 12/30/21 History insulin detemir U-100 100 unit/mL 18 unit subcut HS 10/08/21 12/30/21 History (3 mL) subcutaneous pen (Levemir FlexTouch U-100 Insulin) lisinopril 5 mg tablet 5 mg PO DAILY 10/08/21 12/30/21 History risperidone 2 mg tablet 2 mg PO BID 10/08/21 12/30/21 History Novolog U-100 Insulin aspart 7 units subcut TID 12/27/21 12/30/21 History cholecalciferol (vitamin D3) 125 1 unit PO DAILY 12/27/21 12/30/21 History mcg (5,000 unit) tablet glipizide 5 mg tablet 2.5 mg PO DAILY 12/27/21 12/30/21 History metformin 500 mg tablet 750 mg PO BID 12/27/21 12/30/21 History ondansetron 4 mg disintegrating 4 mg PO Q8H PRN nausea and 12/28/21 12/30/21 Rx tablet vomiting #14 tabs Lactobacillus acidophilus 75 1 cap PO DAILY 12/30/21 12/30/21 History million cell-pectin 100 mg capsule (Acidophilus-Pectin) mupirocin 2 % topical ointment 1 applic topical BID 12/30/21 12/30/21 History polymyxin B sulfate 10,000 1 drp LEFT EYE TID 12/30/21 12/30/21 History unit-trimethoprim 1 mg/mL eye drops silver sulfadiazine 1 % topical 1 applic topical DAILY 12/30/21 12/30/21 History cream (SSD) Allergies Allergy/AdvReac Type Severity Reaction Status Date / Time No Known Allergies Allergy Verified 12/27/21 18:56 Vital Signs Vital Signs - 24 hr 12/30/21 16:16 12/30/21 16:18 12/30/21 16:22 Temperature Pulse Rate 94 86 81 Respiratory Rate 15 18 16 Blood Pressure 137/89 137/89 Pulse Oximetry 93 100 99 12/30/21 16:30 12/30/21 16:31 12/30/21 17:01 Temperature Pulse Rate 87 86 79 Respiratory Rate 18 19 17 Blood Pressure 142/76 H Pulse Oximetry 100 100 100 12/30/21 17:15 12/30/21 17:16 12/30/21 17:30 Temperature Pulse Rate 73 81 79 Respiratory Rate 18 21 H 15 Blood Pressure 155/77 H Pulse Oximetry 100 99 12/30/21 17:45 12/30/21 18:00 12/30/21 18:15 Temperature Pulse Rate 82 82 77 Respiratory Rate 14 14 15 Blood Pressure
[2021-12-30] MEDS: SODIUM CHLORIDE 0.9% IV 1,000 ML 80 ML IV CONT (22:16)
[2021-12-31] VITALS (17 sets, daily range): BP systolic 107–165; BP diastolic 63–90; PULSE 64–104; RESP 10–21; TEMP 36.4–37.1; O2SAT 95–100
--- NOTE | 2021-12-31 | ECHO_ITS ---
Patient Info Name: Dilshad Power Age: 61 years : 1960 Gender: Male Ht: 69 in Wt: 149 lbs BSA: 1.81 m2 HR: 86 bpm BP: 160 / 90 mmHg Heart Rhythm: Sinus Rhythm Technical Quality: Fair Exam Date: 12/31/2021 10:16 AM Exam Location: [facility] Patient Status: Outpatient Admit Date: 12/30/2021 Staff Ordering Physician: Ab Barrow MD Critical Care Clinical Nurse Specialist: Essie Merritt RDCS Attending Provider: El Dixon MD Referring Physician: Pushpa CHRISTENSEN; Exam Type: CA echo doppler color flow Study Info Indications - STROKE Complete two-dimensional, color flow and Doppler transthoracic echocardiogram is performed. Summary 1. Complete two-dimensional, color flow and Doppler transthoracic echocardiogram is performed. 2. Normal LV size and wall thickness, normal LV systolic function, ejection fraction 65-70%. Grade 1 diastolic dysfunction. Mild mitral annular calcification, no significant MR. Aortic valve sclerosis with mild stenosis, ERIKA 2.2 cm2; vmax 1.8 m/sec, mean gradient 5 mmHg. Trivial TR, RVSP 32 mmHg. Left Ventricle Left ventricular chamber dimension is normal. Left ventricular systolic function is normal, estimated at 65-70%. There is no increased left ventricular wall thickness. Left ventricular septal wall motion is normal. The left ventricular diastolic function is grade I diastolic dysfunction. Right Ventricle Right ventricular chamber dimension is normal. Right ventricular systolic function is normal. Left Atria Left atrial chamber dimension is normal. Right Atria Right atrial chamber dimension is normal. Aortic Valve There is moderate aortic valve sclerosis. There is no aortic valve stenosis. There is no aortic valve regurgitation. Pulmonic Valve The pulmonic valve is normal. There is trace pulmonic regurgitation. Mitral Valve There is no mitral valve stenosis. There is no mitral valve regurgitation. There is mild mitral valve calcification. Tricuspid Valve The tricuspid valve leaflets are normal. There is trace tricuspid valve regurgitation. No pulmonary hypertension, estimated pulmonary arterial systolic pressure is 32 mmHg. Pericardium/Pleural The pericardium appears normal. There is no pericardial effusion. Inferior Vena Cava Normal inferior vena cava with >50% collapse upon inspiration consistent with normal right atrial pressure, 10 mmHg. Aorta The aortic root size at the sinus of Valsalva is normal. The prox ascending aorta size is normal. Left Ventricular Outflow Tract Name Value Normal LVOT 2D LVOT Diameter 2.0 cm LVOT Doppler LVOT Peak Gradient 7 mmHg LVOT Mean Gradient 3 mmHg LVOT VTI 19 cm LVOT VTI/AV VTI Ratio 0.8 LVOT Stroke Volume 59 ml LVOT CO 4.6 l/min LVOT CI 2.5 l/min/m2 Pulmonic Valve Name Valu
[2021-12-31] MEDS: DEXTROSE 5%/0.45% SOD CHL 1,000 ML 75 ML IV CONT (02:58)
[2021-12-31 06:11] LABS: Basophils Absolute Auto 0.1 K/mm3 (0.0-0.1); Basophils Percent Auto 0.8 % (0.2-1.2); Eosinophils Absolute Auto 0.5 K/mm3 (0-0.3); Eosinophils Percent Auto 4.3 % (0-4.4); Hematocrit 31.3 % (42.0-52.0); Hemoglobin 9.7 g/dL (14.0-18.0); Immature Granulocyte Absolute 0.04 K/mm3 (0.00-0.031); Immature Granulocyte Percent A 0.4 % (0-0.5); Lymphocytes Absolute Auto 1.19 K/mm3 (0.9-3.2); Lymphocytes Percent Auto 11.5 % (18.3-44.2); Mean Corpuscular Hemoglobin 27.1 pg (26-34); Mean Corpuscular Volume 87.4 fl (80-100); Mean Platelet Volume 9.7 fl (7.4-10.4); Monocytes Absolute Auto 1.1 K/mm3 (0.1-0.6); Monocytes Percent Auto 10.7 % (2.6-8.5); Neutrophils Absolute Auto 7.5 K/mm3 (1.3-6.7); Neutrophils Percent Auto 72.3 % (45.5-73.1); Platelet Count Result 332 k/mm3 (150-375); Red Blood Count 3.58 M/mm3 (4.6-6.20); Red Cell Distribution Width 12.9 % (11.5-14.5); White Blood Count 10.4 K/mm3 (4.5-10.0)
[2021-12-31 06:17] LABS: Alanine Aminotransferase 19 U/L (6-50); Albumin Level 3.3 g/dL (3.5-5.1); Alkaline Phosphatase 120 U/L (38-126); Anion Gap 5 mmol/L (8-16); Aspartate Amino Transferase 51 U/L (17-59); Bilirubin,Total 0.9 mg/dL (0.2-1.3); Blood Urea Nitrogen 24 mg/dL (9-20); Calcium 7.9 mg/dL (8.4-10.2); Carbon Dioxide 26 mmol/L (22-30); Chloride 108 mmol/L (98-107); Estimated Glomerular Filt Rate > 60; Glucose 227 mg/dL (65-110); Potassium 4.5 mmol/L (3.4-5.0); Sodium 139 mmol/L (137-145)
--- NOTE | 2021-12-31 07:30 | PCOTNOTE ---
Ortho consult needed prior to completing OT evaluation.
[2021-12-31 07:48] LABS: Glucose Point of Care 256 mg/dl (65-105)
--- NOTE | 2021-12-31 08:24 | WPDNEURCNPN ---
Assessment and Plan Additional Plan patient to undergo orthopedic surgery subsequently he be started on aspirin and Plavix and other treatment will be continued as such Consult date: 12/31/21 HPI: Dilshad Power is a 61 year old male admitted to the hospital through the emergency room for the complaints of fall at the extended care facility in addition to the ongoing history of previous cerebrovascular accident resulting in the aphasia, patient was reportedly found next to his wheelchair at the nursing facility with a mild abrasion on his upper back but no other further injuries, patient, had been taking multiple medications which include atorvastatin 40 mg daily, citalopram 20 mg daily, hydroxyzine 50 mg at night, metformin daily, and insulin 18units subcu at night. On initial evaluation in the emergency room it was documented that he has ongoing history of chronic kidney disease in addition to diabetes mellitus and hypertension and also dysphagia, initial vital signs were stable routine lab studies were all right except the blood sugar of [address] scan of the head documented left temporal occipital lobe and thalamic infarction likely subacute in origin but no evidence of bleed ,chest x-ray was negative cervical spine CT scan was compatible with severe cervical spondylosis, additionally he was found to have displaced right femur neck fracture with varus angulation, and thoracic spine CT scan was suggestive of 2.9cm right inferior thyroid nodule but otherwise no fracture, EKG revealed no atrial fibrillation patient was admitted to the hospital for the stroke scale date of December 30, 2021 with level of 9 with particular consideration of basically orthopedic care, was kept off the aspirin and Plavix till the surgical procedures are done Review of Systems Review of Systems: as reviewed Constitutional: Comments: all reviewed [facility] Past Medical History Medical History Chronic kidney disease CVA (cerebral vascular accident) Diabetes Dysphagia Hypertension Family History Family History Father Acute myocardial infarction Congestive heart failure Mother Cerebrovascular accident Diabetes mellitus Grandparent Colon cancer Asthma Social History Social History Smoking status: Never smoker Alcohol intake: unknown Substance use: unknown Spiritual care concerns: No Meds Home Medications and Allergies Home Medications Medication Instructions Recorded Confirmed Type acetaminophen 500 mg tablet 500 mg PO Q4H PRN Pain 10/08/21 12/30/21 History atorvastatin 40 mg tablet 40 mg PO DAILY 10/08/21 12/30/21 History citalopram 40 mg tablet 40 mg PO DAILY 10/08/21 12/30/21 History famotidine 20 mg tablet 20 mg PO DAILY 10/08/21 12/30/21 History ferrous sulfate 325 mg (65 mg 325 mg PO DAILY 10/08/21 12/30/21 History iron) tablet hydroxyzine HCl 50 mg tablet 50 mg PO HS 10/08/21 12/30/21 History insulin detemir U-100 100 unit/mL 18 unit subcut HS 10/08/21 12/30/21 History (3 mL) subcutaneous pen (Levemir FlexTouch U-100 Insulin) lisinopril 5 mg tablet 5 mg PO DAILY 10/08/21 12/30/21 History risperidone 2 mg tablet 2 mg PO BID 10/08/21 12/30/21 History Novolog U-100 Insulin aspart 7 units subcut TID 12/27/21 12/30/21 History cholecalciferol (vitamin D3) 125 1 unit PO DAILY 12/27/21 12/30/21 History mcg (5,000 unit) tablet glipizide 5 mg tablet 2.5 mg PO DAILY 12/27/21 12/30/21 History metformin 500 mg tablet 750 mg PO BID 12/27/21 12/30/21 History ondansetron 4 mg disintegrating 4 mg PO Q8H PRN nausea and 12/28/21 12/30/21 Rx tablet vomiting #14 tabs Lactobacillus acidophilus 75 1 cap PO DAILY 12/30/21 12/30/21 History million cell-pectin 100 mg capsule (Acidophilus-Pectin) mupirocin 2 % topical ointment 1 applic topical BID 12/30/21 05
[2021-12-31] MEDS: INSULIN ASPART (*BKC) 100 UNITS/ML 7 UNITS SUB-Q ×3 (09:36→18:04)
--- NOTE | 2021-12-31 09:37 | PM.IMPN ---
Progress Note: A&P Assessment and Plan (1) Acute CVA (cerebrovascular accident): Code(s): I63.9 - Cerebral infarction, unspecified Status: Acute Assessment and Plan: Neurology has been consulted for CVA to the temporal, occipital and down like area, appreciate assistance and recommendations Patient will need to be placed on Plavix and aspirin after discharge, hold these medications for now as patient has a right hip fracture in December plan for surgical intervention Monitor vital signs and neuro status (2) Closed displaced fracture of right femoral neck: Code(s): S72.001A - Fracture of unspecified part of neck of right femur, initial encounter for closed fracture Status: Acute Assessment and Plan: Orthopedic has been consulted for further evaluation, appreciate assistance and recommendations-surgical intervention Holding aspirin and Plavix, patient does have a new diagnosis of a CVA (3) Fall: Code(s): W19.XXXA - Unspecified fall, initial encounter Status: Acute Assessment and Plan: Two/to above (4) Chronic kidney disease: Code(s): N18.9 - Chronic kidney disease, unspecified Status: Acute Assessment and Plan: Monitor renal function Avoid nephrotoxins medications (5) Diabetes: Code(s): E11.9 - Type 2 diabetes mellitus without complications Status: Acute Assessment and Plan: Insulin Lispro sliding scale, Accu-checks qAc and HS and Hold oral hypoglycemics Obtain a HgbA1c (6) Dysphagia: Code(s): R13.10 - Dysphagia, unspecified Status: Acute Assessment and Plan: Two/to above Will need speech therapy evaluation when appropriate Subjective Date/time seen: 12/31/21 09:37 Interval history: Patient is minimally responsive, he does have some inattention. He had a CVA, Neurology has been consulted. Patient is also planned for orthopedic intervention due to a right hip fracture. Pending echocardiogram. No acute events reported by RN during the night Review of Systems Review of Systems: All systems reviewed & are unremarkable except as noted in HPI and below Exam Narrative: Physical exam was limited due to the patient's inability to cooperate with questions. General: No acute distress. Mental Status: Awake, alert and nonverbal, unable to answer orientation questions Skin: Skin in warm, dry and intact without rashes or lesions. Head: Normocephalic and atraumatic. Eyes: Conjunctivae are clear without exudates or hemorrhage. Sclera is non-icteric. EOM are intact, PERRLA. Right pupil slow, reactive to light Ears: The external ear and canal are non-tender and without swelling or discharge. Nose: Nasal mucosa is pink and moist. Septum midline. Nares patent bilaterally. Throat: Oral mucosa pink and moist with good dentition. Tongue midline. Neck: The neck supple without adenopathy. Trachea midline. No JVD. Cardiac: S1 and S2 regular rate and rhythm. No murmurs, gallops, or rubs auscultated. Respiratory: Chest wall symmetric, nontender and without deformity or trauma. Respirations even and unlabored. Lung sounds are clear to auscultation in all lobes bilaterally without wheezes, rhonchi, or rales. Abdominal: Abdomen soft, round and non-tender to palpation. Bowel sounds present and normoactive in all 4 quadrants. Spine: Neck and back with grossly normal curvature, no deformity in appearance or signs of trauma. Extremities: Upper and lower extremities atraumatic without tenderness or deformity. Unable to perform full range of motion and muscle strength assessment Neurological: And able to completely perform a neurological assessment. Objective Data Vital Signs Vital Signs: Vital Signs - 24 hr 12/30/21 16:22 12/30/21 16:16 12/30/21 16:18 Temperature Pulse Rate 81 94 86 Respiratory Rate 16 15 18 Blood Pressure 137/89 137/89 Pulse Oximetry 99 93 100 Oxygen Delivery Room Air 12/30/21 16:30 12/30/21 16:31 12/30
[2021-12-31] MEDS: CITALOPRAM HYDROBROMIDE 20 MG TABLET 40 MG PO (09:40)
[2021-12-31] MEDS: CHOLECALCIFEROL 1,000 UNITS TABLET 1000 UNITS PO (09:40)
[2021-12-31] MEDS: risperiDONE 1 MG TABLET 2 MG PO ×2 (09:40→20:32)
[2021-12-31] MEDS: lisinopriL 5 MG TABLET PO (09:40)
[2021-12-31] MEDS: FAMOTIDINE 20 MG TABLET PO (09:40)
[2021-12-31] MEDS: ACIDOPHILUS/BULGARICUS CHEWABLE TABLET 1 TABLET PO (09:40)
[2021-12-31] MEDS: FERROUS SULFATE 324 MG TABLET PO (09:40)
[2021-12-31] MEDS: ATORVASTATIN 40 MG TABLET PO (09:40)
[2021-12-31] MEDS: MUPIROCIN 2% OINT 22 GM TUBE 1 APPLIC TOPICAL ×2 (09:41→18:02)
[2021-12-31] MEDS: POLYMYXIN/TRIMETHOPRIM OPHTH 10 ML DROPS 1 DROP LEFT EYE ×3 (09:41→18:03)
--- NOTE | 2021-12-31 10:06 | PCSTNOTE ---
Please refer to the Bedside Swallow Evaluation in the EMR. Please note, silent aspiration cannot be ruled out at bedside.
--- NOTE | 2021-12-31 10:13 | PM.CNOR ---
Assessment and Plan Assessment and plan (1) Closed displaced fracture of right femoral neck: Code(s): S72.001A - Fracture of unspecified part of neck of right femur, initial encounter for closed fracture Status: Acute Assessment and Plan: Displaced femoral neck fracture. The x-ray shows some softening of the fracture edges suggesting the fracture is not acute. He is unable to give a history due to a stroke recently. Apparently he was doing some limited ambulation last month. The CT scan also suggests the fracture is subacute. Femoral neck fracture nonunion is impending. Due to the subacute presentation, surgery has increased risk. I discussed the pros and cons of surgery with the hospitalist. We agree that surgery will likely be beneficial for him in terms of pain relief, nursing care, and ability to mobilize. I recommend bipolar hemiarthroplasty of the right hip. I will reach out to his daughter to discuss the risks, benefits, and alternatives. History of Present Illness HPI Consult date: 12/31/21 Chief complaint: Right Hip Fracture, CVA Subacute Fall Narrative: Patient presented to the emergency room with hip pain and failure to mobilize as normal. He is aphasic and stroke has been diagnosed. Femoral neck fracture was identified from a previous CT scan 2 days ago. This had a subacute appearance. By report his daughter says he was walking a little over a month ago somewhat. Typically he is minimally active. He is not responsive to questioning. Review of Systems Review of Systems: ROS unobtainable: Yes unobtainable due to mental status PMFSH Past Medical History Medical History Chronic kidney disease CVA (cerebral vascular accident) Diabetes Dysphagia Hypertension Family History Family History Father Acute myocardial infarction Congestive heart failure Mother Cerebrovascular accident Diabetes mellitus Grandparent Colon cancer Asthma Social History Social History Smoking status: Never smoker Alcohol intake: unknown Substance use: unknown Spiritual care concerns: No Meds Home Medications and Allergies Home Medications Medication Instructions Recorded Confirmed Type acetaminophen 500 mg tablet 500 mg PO Q4H PRN Pain 10/08/21 12/30/21 History atorvastatin 40 mg tablet 40 mg PO DAILY 10/08/21 12/30/21 History citalopram 40 mg tablet 40 mg PO DAILY 10/08/21 12/30/21 History famotidine 20 mg tablet 20 mg PO DAILY 10/08/21 12/30/21 History ferrous sulfate 325 mg (65 mg 325 mg PO DAILY 10/08/21 12/30/21 History iron) tablet hydroxyzine HCl 50 mg tablet 50 mg PO HS 10/08/21 12/30/21 History insulin detemir U-100 100 unit/mL 18 unit subcut HS 10/08/21 12/30/21 History (3 mL) subcutaneous pen (Levemir FlexTouch U-100 Insulin) lisinopril 5 mg tablet 5 mg PO DAILY 10/08/21 12/30/21 History risperidone 2 mg tablet 2 mg PO BID 10/08/21 12/30/21 History Novolog U-100 Insulin aspart 7 units subcut TID 12/27/21 12/30/21 History cholecalciferol (vitamin D3) 125 1 unit PO DAILY 12/27/21 12/30/21 History mcg (5,000 unit) tablet glipizide 5 mg tablet 2.5 mg PO DAILY 12/27/21 12/30/21 History metformin 500 mg tablet 750 mg PO BID 12/27/21 12/30/21 History ondansetron 4 mg disintegrating 4 mg PO Q8H PRN nausea and 12/28/21 12/30/21 Rx tablet vomiting #14 tabs Lactobacillus acidophilus 75 1 cap PO DAILY 12/30/21 12/30/21 History million cell-pectin 100 mg capsule (Acidophilus-Pectin) mupirocin 2 % topical ointment 1 applic topical BID 12/30/21 12/30/21 History polymyxin B sulfate 10,000 1 drp LEFT EYE TID 12/30/21 12/30/21 History unit-trimethoprim 1 mg/mL eye drops silver sulfadiazine 1 % topical 1 applic topical DAILY 12/30/21 12/30/21 History cream (SSD) Allergies Allergy/AdvReac Type
[2021-12-31] MEDS: SILVER SULFADIAZINE 1% CR 400 GM JAR (*BKC) 1 APPLIC TOPICAL (12:01)
[2021-12-31 12:02] LABS: Glucose Point of Care 195 mg/dl (65-105)
--- NOTE | 2021-12-31 13:17 | PCOTNOTE ---
Canceled Occupational therapy orders at this time. Please re-order Occupational therapy after ortho surgery.
--- NOTE | 2021-12-31 13:18 | PCPTNOTE ---
Canceled Physical therapy orders at this time. Please re-order physical therapy after ortho surgery
--- NOTE | 2021-12-31 13:23 | WPDHPUPDATE1 ---
History and Physical Update Update Date/Time: 12/31/21 13:23 History and Physical has been reviewed, including an updated exam of the patient. There are NO changes in the patient's condition. Risks, benefits, and alternatives have been discussed and questions answered. Discussed with daughter, SHARRON. Patient agrees to proceed with procedure.
--- NOTE | 2021-12-31 13:53 | WPDANESEPPF ---
Anes - Initial Pre Proc Eval Procedure: Operation Date: 12/31/21 16:00 Proposed Procedures p Right Bipolar - David Phipps MD Date/Time: 12/31/21 13:53 Surgeon: Desire Pre Op Diagnosis: Right Hip Fracture, CVA Subacute Fall Patient Data Age: 61 Gender: M Height: Weight: 68 kg Last Vital Signs Temp 37.1 C 12/31/21 05:58 Pulse 91 12/31/21 12:00 Resp 18 12/31/21 05:58 BP 160/90 H 12/31/21 05:58 Pulse Ox 100 12/31/21 05:58 O2 Del Method Room Air 12/31/21 07:38 Allergies Allergy/AdvReac Type Severity Reaction Status Date / Time No Known Allergies Allergy Verified 12/27/21 18:56 Home Medications Medication Instructions Recorded Confirmed Type acetaminophen 500 mg tablet 500 mg PO Q4H PRN Pain 10/08/21 12/30/21 History atorvastatin 40 mg tablet 40 mg PO DAILY 10/08/21 12/30/21 History citalopram 40 mg tablet 40 mg PO DAILY 10/08/21 12/30/21 History famotidine 20 mg tablet 20 mg PO DAILY 10/08/21 12/30/21 History ferrous sulfate 325 mg (65 mg 325 mg PO DAILY 10/08/21 12/30/21 History iron) tablet hydroxyzine HCl 50 mg tablet 50 mg PO HS 10/08/21 12/30/21 History insulin detemir U-100 100 unit/mL 18 unit subcut HS 10/08/21 12/30/21 History (3 mL) subcutaneous pen (Levemir FlexTouch U-100 Insulin) lisinopril 5 mg tablet 5 mg PO DAILY 10/08/21 12/30/21 History risperidone 2 mg tablet 2 mg PO BID 10/08/21 12/30/21 History Novolog U-100 Insulin aspart 7 units subcut TID 12/27/21 12/30/21 History cholecalciferol (vitamin D3) 125 1 unit PO DAILY 12/27/21 12/30/21 History mcg (5,000 unit) tablet glipizide 5 mg tablet 2.5 mg PO DAILY 12/27/21 12/30/21 History metformin 500 mg tablet 750 mg PO BID 12/27/21 12/30/21 History ondansetron 4 mg disintegrating 4 mg PO Q8H PRN nausea and 12/28/21 12/30/21 Rx tablet vomiting #14 tabs Lactobacillus acidophilus 75 1 cap PO DAILY 12/30/21 12/30/21 History million cell-pectin 100 mg capsule (Acidophilus-Pectin) mupirocin 2 % topical ointment 1 applic topical BID 12/30/21 12/30/21 History polymyxin B sulfate 10,000 1 drp LEFT EYE TID 12/30/21 12/30/21 History unit-trimethoprim 1 mg/mL eye drops silver sulfadiazine 1 % topical 1 applic topical DAILY 12/30/21 12/30/21 History cream (SSD) Laboratory Tests 12/30/21 12/30/21 12/30/21 17:15 17:43 17:43 WBC 12.7 K/mm3 H K/mm3 (4.5-10.0) RBC 4.02 M/mm3 L M/mm3 (4.6-6.20) Hgb 10.9 g/dL L g/dL (14.0-18.0) Hct 35.2 % L % (42.0-52.0) MCV 87.6 fl fl (80-100) MCH 27.1 pg pg (26-34) MCHC 31.0 g/dl L g/dl (32-36) RDW 13.1 % % (11.5-14.5) Plt Count 346 k/mm3 k/mm3 (150-375) MPV 9.4 fl fl (7.4-10.4) Immature Gran % (Auto) 0.5 % % (0-0.5) Neut % (Auto) 79.2 % H % (45.5-73.1) Lymph % (Auto) 8.6 % L % (18.3-44.2) [place] % (Auto) 9.1 % H % (2.6-8.5) Eos % (Auto) 2.1 % % (0-4.4) Baso % (Auto) 0.5 % % (0.2-1.2) Lymph # (Auto) 1.09 K/mm3 K/mm3 (0.9-3.2) [place] # (Auto) 1.2 K/mm3 H K/mm3 (0.1-0.6) Eos # (Auto) 0.3 K/mm3 K/mm3 (0-0.3) Baso # (Auto) 0.1 K/mm3 K/mm3 (0.0-0.1) Abs Immat Gran (auto) 0.06 K/mm3 H K/mm3 (0.00-0.031) Absolute Neuts (auto) 10.1 K/mm3 H K/mm3 (1.3-6.7) Absolute Nucleated RBC 0.0 K/mm3 K/mm3 (0.0-0.012) Nucleated RBC % 0.0 % % (0.0-0.2) PT 14.9 Seconds H Seconds (11.1-14.7) INR 1.2 APTT 33.5 SECONDS SECONDS (22.3-36.8) Sodium Potassium Chloride Carbon Dioxide Anion Gap BUN Creatinine Estim Creat Clear Calc Estimated GFR Glucose POC Capillary Glucose Calcium Total Bilirubin AST
[2021-12-31] MEDS: LACTATED RINGERS 1,000 ML 30 ML IV CONT ×2 (14:15→16:04)
[2021-12-31] MEDS: TRANEXAMIC ACID 1,000MG/ISO100 1,000 MG/100 ML BAG 200 MG IVPB (14:16)
[2021-12-31] MEDS: ceFAZolin 2 GM/D5W 50 ML 2 GM/50 ML BAG IVPB (14:21)
--- NOTE | 2021-12-31 14:34 | SUR.PREOP ---
pt non verbal ,not following commands.
[2021-12-31 16:27] LABS: Glucose Point of Care 159 mg/dl (65-105)
--- NOTE | 2021-12-31 16:29 | W.PM.PROC2 ---
Procedure Note - Detailed Date of Procedure 12/31/21 Pre-op Diagnosis Displaced right hip femoral neck fracture subacute. Post-op Diagnosis Same Procedure Performed Bipolar hemiarthroplasty right hip. Surgeon David Phipps MD Anesthesia General Findings The fracture was subacute but did not have a great deal of callus. Bone quality was good. He was in between sizes with a size 3 and the size 4. Stability was best with a size 4 despite slight lengthening of the leg. Description of Procedure A general anesthetic was administered. The patient was carefully placed in the lateral decubitus position on the peg board positioner. An axillary roll was placed. The hip was prepped and draped in the usual sterile fashion. A minimally invasive optimized posterior approach to the hip was performed. An L shaped capsulotomy was created along the upper border of the piriformis. The short external rotators were tagged with number 2 high strength suture for later repair. The labrum was preserved. The femoral neck cut was performed. The femoral head was removed and sized. The acetabular floor was cleared of debris and loose tissue. The femur was sequentially reamed and broached. Trial was assessed for leg length and stability. The real component was impacted into position, trialed again, and the final head and bipolar component were assembled. The hip was reduced after copious irrigation. The short external rotators and capsule were repaired through drill holes in the posterior trochanter. The wound was closed in layers with 1 Vicryl, 2,0, and 2-0 running barbed suture. Adhesive tapes were placed on the skin, followed by a sterile gauze dressing. The patient was extubated and brought to the recovery room. Implants [place] hip fracture stem size 4 high offset. 28 mm metal femoral head. +0. 50 mm outer diameter bipolar component. Estimated Blood Loss 150 Urine Output 100 Drains No Pathology None sent Complications No immediate complications Condition Stable Disposition PACU [facility] Billing Surgery - Charge Forward: Surgery Billing
[2021-12-31] MEDS: SODIUM CHLORIDE 0.9% IV 1,000 ML 125 ML IV CONT (18:04)
[2021-12-31] MEDS: SENNA/DOCUSATE SODIUM TABLET 2 TAB PO (18:04)
[2021-12-31] MEDS: INSULIN GLARGINE (*BKC) 100 UNITS/ML 18 UNITS SUB-Q (20:31)
[2021-12-31] MEDS: hydrOXYzine HCL 25 MG TABLET 50 MG PO (20:32)
[2021-12-31 20:37] LABS: Glucose Point of Care 170 mg/dl (65-105)
[2022-01-01] VITALS (13 sets, daily range): BP systolic 133–181; BP diastolic 64–85; PULSE 74–110; RESP 14–21; TEMP 36.1–37.7; O2SAT 97–100
--- NOTE | 2022-01-01 | ECHO_ITS ---
Patient Info Name: Dilshad Power Age: 61 years : 1960 Gender: Male Ht: 70 in Wt: 149 lbs BSA: 1.82 m2 HR: 89 bpm BP: 133 / 64 mmHg Technical Quality: Good Exam Date: 01/01/2022 11:30 AM Exam Location: [facility] Exam Room: 256 Patient Status: Inpatient Admit Date: 12/31/2021 Staff Ordering Physician: Reta Nur PA-C [employer] Instrument Repairer: Cynthia Ruffin RDCS Attending Provider: Reta Nur PA-C Exam Type: CA echo limited w bubble study Study Info Indications - CVA Limited two-dimensional transthoracic echocardiogram is performed with agitated saline. Contrast/Agitated Saline Contrast/Ag. Saline: Agitated Saline Amount: --- ml Administered By: Beto Guido RDCS Existing IV Access: Yes IV Access Condition: patent with no signs of infiltration Summary 1. Limited echocardiogram to assess atrial septum. 2. Agitated saline injection with and without valsalva maneuver opacified right side cardiac chambers without shunt to left side cardiac chambers. 3. Intact interatrial septum visualized by 2D and agitated saline imaging. Atrial Septum Limited echocardiogram to assess atrial septum. Agitated saline injection with and without valsalva maneuver opacified right side cardiac chambers without shunt to left side cardiac chambers. Intact interatrial septum visualized by 2D and agitated saline imaging. Report Signatures
[2022-01-01] MEDS: DEXTROSE 5%/0.45% SOD CHL 1,000 ML 75 ML IV CONT (04:29)
[2022-01-01 05:52] LABS: Basophils Percent Auto 0.3 % (0.2-1.2); Eosinophils Absolute Auto 0.1 K/mm3 (0-0.3); Eosinophils Percent Auto 0.5 % (0-4.4); Hematocrit 26.8 % (42.0-52.0); Hemoglobin 8.5 g/dL (14.0-18.0); Immature Granulocyte Absolute 0.05 K/mm3 (0.00-0.031); Immature Granulocyte Percent A 0.4 % (0-0.5); Lymphocytes Absolute Auto 1.09 K/mm3 (0.9-3.2); Lymphocytes Percent Auto 8.9 % (18.3-44.2); Mean Corpuscular HGB Conc 31.7 g/dl (32-36); Mean Corpuscular Hemoglobin 27.2 pg (26-34); Mean Corpuscular Volume 85.6 fl (80-100); Mean Platelet Volume 9.2 fl (7.4-10.4); Monocytes Absolute Auto 1.3 K/mm3 (0.1-0.6); Monocytes Percent Auto 10.6 % (2.6-8.5); Neutrophils Absolute Auto 9.7 K/mm3 (1.3-6.7); Neutrophils Percent Auto 79.3 % (45.5-73.1); Platelet Count Result 324 k/mm3 (150-375); Red Blood Count 3.13 M/mm3 (4.6-6.20); White Blood Count 12.2 K/mm3 (4.5-10.0)
[2022-01-01 06:10] LABS: Anion Gap 3 mmol/L (8-16); Blood Urea Nitrogen 24 mg/dL (9-20); Calcium 7.4 mg/dL (8.4-10.2); Carbon Dioxide 24 mmol/L (22-30); Chloride 107 mmol/L (98-107); Estimated Glomerular Filt Rate > 60; Glucose 191 mg/dL (65-110); Potassium 4.4 mmol/L (3.4-5.0); Sodium 134 mmol/L (137-145)
--- NOTE | 2022-01-01 07:27 | WPDANESPN ---
Anes - Prog Note Post-Op Date/Time: 01/01/22 07:27 Cardiovascular status: normal Respiratory status: normal Airway patency: baseline Mental status: baseline Post-Op hydration status: normal Vital Signs: Last Vital Signs Temp 98.1 F 01/01/22 07:18 Pulse 94 01/01/22 07:18 Resp 20 01/01/22 07:18 BP 133/64 01/01/22 07:18 Pulse Ox 99 01/01/22 07:18 O2 Del Method Room Air 12/31/21 20:00 O2 Flow Rate 8 12/31/21 16:10 Pain Score (VAS): 1 I/O: Intake & Output 12/31/21 12/31/21 01/01/22 15:59 23:59 07:59 Intake Total 1550 2000 Output Total 320 300 Balance 1230 1700 Laboratory Tests 01/01/22 05:36 01/01/22 05:36 12/31/21 12/31/21 12/31/21 07:41 10:38 11:56 WBC RBC Hgb Hct MCV MCH MCHC RDW Plt Count MPV Immature Gran % (Auto) Neut % (Auto) Lymph % (Auto) [place] % (Auto) Eos % (Auto) Baso % (Auto) Lymph # (Auto) [place] # (Auto) Eos # (Auto) Baso # (Auto) Abs Immat Gran (auto) Absolute Neuts (auto) Absolute Nucleated RBC Nucleated RBC % Sodium Potassium Chloride Carbon Dioxide Anion Gap BUN Creatinine Estim Creat Clear Calc Estimated GFR Glucose POC Capillary Glucose 256 H 195 H Calcium Blood Type O Positive Antibody Screen Negative 12/31/21 12/31/21 01/01/22 16:23 20:29 05:36 WBC 12.2 H RBC 3.13 L Hgb 8.5 L Hct 26.8 L MCV 85.6 MCH 27.2 MCHC 31.7 L RDW 13.0 Plt Count 324 MPV 9.2 Immature Gran % (Auto) 0.4 Neut % (Auto) 79.3 H Lymph % (Auto) 8.9 L [place] % (Auto) 10.6 H Eos % (Auto) 0.5 Baso % (Auto) 0.3 Lymph # (Auto) 1.09 [place] # (Auto) 1.3 H Eos # (Auto) 0.1 Baso # (Auto) 0.0 Abs Immat Gran (auto) 0.05 H Absolute Neuts (auto) 9.7 H Absolute Nucleated RBC 0.0 Nucleated RBC % 0.0 Sodium Potassium Chloride Carbon Dioxide Anion Gap BUN Creatinine Estim Creat Clear Calc Estimated GFR Glucose POC Capillary Glucose 159 H 170 H Calcium Blood Type Antibody Screen 01/01/22 05:36 WBC RBC Hgb Hct MCV MCH MCHC RDW Plt Count MPV Immature Gran % (Auto) Neut % (Auto) Lymph % (Auto) [place] % (Auto) Eos % (Auto) Baso % (Auto) Lymph # (Auto) [place] # (Auto) Eos # (Auto) Baso # (Auto) Abs Immat Gran (auto) Absolute Neuts (auto) Absolute Nucleated RBC Nucleated RBC % Sodium 134 L Potassium 4.4 Chloride 107 Carbon Dioxide 24 Anion Gap 3 L BUN 24 H Creatinine 1.00 Estim Creat Clear Calc Not Reportable Estimated GFR > 60 Glucose 191 H POC Capillary Glucose Calcium 7.4 L Blood Type Antibody Screen Patient Feedback: Patient satisfied with anesthetic care.
[2022-01-01 07:49] LABS: Glucose Point of Care 199 mg/dl (65-105)
[2022-01-01 08:22] LABS: Hemoglobin A1C 8.9 % (<5.7)
[2022-01-01 08:23] LABS: Cholesterol 107 mg/dL (0-200); HDL Direct 23 mg/dL; Triglycerides 63 mg/dL (<150)
[2022-01-01 08:34] LABS: LDL Cholesterol Direct 50 mg/dL
--- NOTE | 2022-01-01 08:41 | ECG_ITS ---
Measurements Intervals [place] Rate: 73 P: 77 NH: 144 QRS: 26 QRSD: 87 T: 89 QT: 394 QTc: 435 Interpretive Statements SINUS RHYTHM NONSPECIFIC T-WAVE ABNORMALITY- HIGH LATERAL LEADS BORDERLINE ECG Electronically Signed On 01-01-2022 9:36:19 CDT by Adan Cárdenas D.O.
[2022-01-01 08:44] LABS: Glucose Point of Care 230 mg/dl (65-105)
--- NOTE | 2022-01-01 08:44 | PCOTNOTE ---
Prior to attempting OT evaluation this AM, patient had a rapid response called, hold OT at this time. Will follow.
[2022-01-01 08:53] LABS: Basophils Absolute Auto 0.1 K/mm3 (0.0-0.1); Basophils Percent Auto 0.4 % (0.2-1.2); Eosinophils Absolute Auto 0.1 K/mm3 (0-0.3); Eosinophils Percent Auto 0.9 % (0-4.4); Hematocrit 27.4 % (42.0-52.0); Hemoglobin 8.5 g/dL (14.0-18.0); Immature Granulocyte Absolute 0.04 K/mm3 (0.00-0.031); Immature Granulocyte Percent A 0.4 % (0-0.5); Lymphocytes Absolute Auto 1.02 K/mm3 (0.9-3.2); Lymphocytes Percent Auto 9.2 % (18.3-44.2); Mean Corpuscular Hemoglobin 26.8 pg (26-34); Mean Corpuscular Volume 86.4 fl (80-100); Mean Platelet Volume 8.6 fl (7.4-10.4); Monocytes Absolute Auto 1.1 K/mm3 (0.1-0.6); Monocytes Percent Auto 9.7 % (2.6-8.5); Neutrophils Absolute Auto 8.9 K/mm3 (1.3-6.7); Neutrophils Percent Auto 79.4 % (45.5-73.1); Platelet Count Result 293 k/mm3 (150-375); Red Blood Count 3.17 M/mm3 (4.6-6.20); White Blood Count 11.1 K/mm3 (4.5-10.0)
[2022-01-01 09:03] LABS: Alanine Aminotransferase 19 U/L (6-50); Alkaline Phosphatase 105 U/L (38-126); Anion Gap 5 mmol/L (8-16); Aspartate Amino Transferase 54 U/L (17-59); Bilirubin,Total 0.8 mg/dL (0.2-1.3); Blood Urea Nitrogen 22 mg/dL (9-20); Calcium 7.5 mg/dL (8.4-10.2); Carbon Dioxide 24 mmol/L (22-30); Chloride 105 mmol/L (98-107); Estimated Glomerular Filt Rate > 60; Glucose 220 mg/dL (65-110); Lactic Acid Reflex 0.7 mmol/L (0.7-2.0); Potassium 4.3 mmol/L (3.4-5.0); Sodium 134 mmol/L (137-145)
[2022-01-01 09:07] LABS: Appearance Urine Clear (Clear); Bilirubin Urine Negative (Negative); Blood Urine 2+ (Negative); Color Urine Yellow (Yellow); Glucose Urine UA 1+ mg/dL (Negative); Ketones Urine Negative (Negative); Leukocyte Esterase Ur Negative LEU/UL (Negative); Nitrate Urine Negative (Negative); Protein Urine 1+ mg/dL (Negative); Specific Grav Ur >= 1.030 (1.001-1.035); Urobilinogen Urine 0.2 mg/dL (<2.0)
[2022-01-01 09:12] LABS: Bacteria Urine Trace /hpf; Mucus Urine Rare /lpf
--- NOTE | 2022-01-01 09:37 | PCPTNOTE ---
Prior to attempting PT evaluation this AM, patient had a rapid response called, hold PT at this time. Will follow.
[2022-01-01 09:44] LABS: Add Urine Microscopic? YES
--- NOTE | 2022-01-01 10:14 | P.PNIM_ITS ---
Progress Note: A&P Assessment and Plan (1) Decreased responsiveness: Code(s): R41.89 - Other symptoms and signs involving cognitive functions and awareness <Reta ArmstrongRamírez Nur PA-C - Last Filed: 01/01/22 10:53> Status: Acute <Reta VinsonLAWANDA mckennaC - Last Filed: 01/01/22 10:53> Assessment and Plan: Patient poorly arousable today. Rapid response called. 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 on presentation showed likely subacute left temporal-occipital lobe and thalamic infarctions * Appreciate neurology consultation * Will initiate aspirin and Plavix at this time. Had been held perioperatively. * Lipid panel pending * Echocardiogram revealed preserved ejection fraction, grade 1 diastolic dysfunction, mild aortic stenosis. Bubble study pending * Carotid Doppler ultrasound pending <Reta Nur PA-C - Last Filed: 01/01/22 10:53> (3) Closed displaced fracture of right femoral neck: Code(s): S72.001A - Fracture of unspecified part of neck of right femur, ini tial encounter for closed fracture <Reta Nur PA-C - Last Filed: 01/01/22 10:53> Status: Acute <Reta JRamírez Nur PA-C - Last Filed: 01/01/22 10:53> Assessment and Plan: Found sitting on the ground by his wheelchair. Pelvis x-ray on presentation showed displaced right femoral neck fracture * Appreciate orthopedic surgery consultation * Patient is s/p bipolar hemiarthroplasty of the right hip performed on 12/31/[address] Phipps * Supportive care. Analgesics available as needed * Wound care, weight-bearing status, DVT prophylaxis per Orthopedic surgery * Continue PT/OT <LAWANDA YousifC - Last Filed: 01/01/22 10:53> (4) Fall: Code(s): W19.XXXA - Unspecified fall, initial encounter <HUNTER Yousif-C - Last Filed: 01/01/22 10:53> Status: Acute <Reta ArmstrongRamírez AlissonHUNTER mckenna-C - Last Filed: 01/01/22 10:53> Assessment and Plan: Unwitnessed fall, patient found on the ground by his wheelchair as above * Implement fall precautions <HUNTER Yousif-C - Last Filed: 01/01/22 10:53> (5) Chronic kidney disease: Code(s): N18.9 - Chronic kidney disease, unspecified <Reta PattiHUNTER Hopper-C - Last Filed: 01/01/22 10:53> Status: Acute <Reta JHUNTER Hopper-C - Last Filed: 01/01/22 10:53> Assessment and Plan: Renal function is stable * Monitor BMP <Reta PattiHUNTER Hopper-C - Last Filed: 01/01/22 10:53> (6) Diabetes: Code(s): E11.9 - Type 2 diabetes mellitus without complications <HUNTER Yousif-C - Last Filed: 01/01/22 10:53> Status: Acute <Reta JHUNTER Hopper-C - Last Filed: 01/01/22 10:53> Assessment and Plan: A1c is 8.9 * Continue Accu-Cheks, moderate dose sliding scale insulin, and hypoglycemic protocol * Lantus 18 units qHS. May need to decrease this dose depending on how patient tolerates p.o. intake today. Continue to provide ass
--- NOTE | 2022-01-01 10:14 | PM.IMPN ---
Progress Note: A&P Assessment and Plan (1) Decreased responsiveness: Code(s): R41.89 - Other symptoms and signs involving cognitive functions and awareness <LAWANDA YousifC - Last Filed: 01/01/22 10:53> Status: Acute <Reta VinsonHUNTER mckenna-C - Last Filed: 01/01/22 10:53> Assessment and Plan: Patient poorly arousable today. Rapid response called. 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 on presentation showed likely subacute left temporal-occipital lobe and thalamic infarctions Appreciate neurology consultation Will initiate aspirin and Plavix at this time. Had been held perioperatively. Lipid panel pending Echocardiogram revealed preserved ejection fraction, grade 1 diastolic dysfunction, mild aortic stenosis. Bubble study pending Carotid Doppler ultrasound pending <LAWANDA YousifC - Last Filed: 01/01/22 10:53> (3) Closed displaced fracture of right femoral neck: Code(s): S72.001A - Fracture of unspecified part of neck of right femur, initial encounter for closed fracture <LAWANDA YousifC - Last Filed: 01/01/22 10:53> Status: Acute <LAWANDA YousifC - Last Filed: 01/01/22 10:53> Assessment and Plan: Found sitting on the ground by his wheelchair. Pelvis x-ray on presentation showed displaced right femoral neck fracture Appreciate orthopedic surgery consultation Patient is s/p bipolar hemiarthroplasty of the right hip performed on 12/31/[address] Phipps Supportive care. Analgesics available as needed Wound care, weight-bearing status, DVT prophylaxis per Orthopedic surgery Continue PT/OT <HUNTER Yousif-C - Last Filed: 01/01/22 10:53> (4) Fall: Code(s): W19.XXXA - Unspecified fall, initial encounter <Reta ArmstrongRamírez Nur PA-C - Last Filed: 01/01/22 10:53> Status: Acute <Reta ArmstrongRamírez Nur PA-C - Last Filed: 01/01/22 10:53> Assessment and Plan: Unwitnessed fall, patient found on the ground by his wheelchair as above Implement fall precautions <Reta PattiRamírez Nur PA-C - Last Filed: 01/01/22 10:53> (5) Chronic kidney disease: Code(s): N18.9 - Chronic kidney disease, unspecified <Reta ArmstrongRamírez Nur PA-C - Last Filed: 01/01/22 10:53> Status: Acute <Reta JRamírez Alissonbala PA-C - Last Filed: 01/01/22 10:53> Assessment and Plan: Renal function is stable Monitor BMP <Reta JRamírez Nur PA-C - Last Filed: 01/01/22 10:53> (6) Diabetes: Code(s): E11.9 - Type 2 diabetes mellitus without complications <Reta ArmstrongRamírez Nur PA-C - Last Filed: 01/01/22 10:53> Status: Acute <Reta JRamírez Nur PA-C - Last Filed: 01/01/22 10:53> Assessment and Plan: A1c is 8.9 Continue Accu-Cheks, moderate dose sliding scale insulin, and hypoglycemic protocol Lantus 18 units qHS. May need to decrease this dose depending on how patient tolerates p.o. intake today. Continue to provide assistance with meals Home metformin and glipizide on hold Monitor glucose trends closely and adjust insulin regimen as needed <Reta Nur PA-C - Last Filed: 01/01/22 10:53> (7) Dysphagia: Code(s): R13.10 - Dysphagia, unspecified <Reta PattiRamírez Nur PA-C - Last Filed: 01/01/22 10:53> Status: Acute <Reta Nur PA-C - Last File
[2022-01-01] MEDS: POLYMYXIN/TRIMETHOPRIM OPHTH 10 ML DROPS 1 DROP LEFT EYE (10:59)
[2022-01-01] MEDS: FAMOTIDINE 20 MG TABLET PO (10:59)
[2022-01-01] MEDS: FERROUS SULFATE 324 MG TABLET PO (10:59)
[2022-01-01] MEDS: polyethylene glycoL 3350 17 GM POWD.PACK PO (10:59)
[2022-01-01] MEDS: MUPIROCIN 2% OINT 22 GM TUBE 1 APPLIC TOPICAL (10:59)
[2022-01-01] MEDS: SENNA/DOCUSATE SODIUM TABLET 2 TAB PO ×2 (10:59→16:14)
[2022-01-01] MEDS: CHOLECALCIFEROL 1,000 UNITS TABLET 1000 UNITS PO (11:00)
[2022-01-01] MEDS: ACIDOPHILUS/BULGARICUS CHEWABLE TABLET 1 TABLET PO (11:00)
[2022-01-01] MEDS: ATORVASTATIN 40 MG TABLET PO (11:00)
[2022-01-01] MEDS: CITALOPRAM HYDROBROMIDE 20 MG TABLET 40 MG PO (11:00)
[2022-01-01] MEDS: SILVER SULFADIAZINE 1% CR 400 GM JAR (*BKC) 1 APPLIC TOPICAL (11:01)
[2022-01-01] MEDS: lisinopriL 5 MG TABLET PO (11:01)
[2022-01-01] MEDS: risperiDONE 1 MG TABLET 2 MG PO ×2 (11:01→20:19)
[2022-01-01] MEDS: SODIUM CHLORIDE 0.9% IV 1,000 ML 75 ML IV CONT (11:14)
[2022-01-01 11:47] LABS: Glucose Point of Care 216 mg/dl (65-105)
[2022-01-01] MEDS: CLOPIDOGREL BISULFATE 300 MG TABLET PO (12:03)
[2022-01-01] MEDS: INSULIN ASPART (*BKC) 100 UNITS/ML SUB-Q ×2 (12:04→16:22)
--- NOTE | 2022-01-01 12:35 | PM.PNORT ---
Progress Note: A&P Assessment and Plan (1) Closed displaced fracture of right femoral neck: Code(s): S72.001A - Fracture of unspecified part of neck of right femur, initial encounter for closed fracture Status: Acute Plan Postop day 1: Right Bipolar hemiarthroplasty. Patient tolerated procedure well. Patient sleeping comfortably. Ortho instructions: (surgery 12/31/21) D/C to SNF/rehab Xray 2 weeks post op. f/u in office at 4 weeks post op. Wound Care: Remove Mepilex at 7 days post op. Remove steristrips at 14 days post op. May shower. No soaking wound. PT: WBAT with walker. DVT prophylaxis: Continue home blood thinners. Pain medication: Tylenol Subjective Subjective Date/Time Seen: 01/01/22 12:35 Patient sleeping at the time of my visit. Review of Systems Review of Systems: ROS unobtainable: Yes unobtainable due to mental status Exam Narrative: Normal weight 61 y/o Male. Sleeping comfortably in bed. Wearing compression socks bilaterally. Dressing dry and intact with no drainage. Moderate swelling. No swelling. No ecchymosis. No erythema. No hematoma. Calf and Thigh soft. No varicosities. Distal pulses palpable. Objective Data Vital Signs Vital Signs: Vital Signs - 24 hr 12/31/21 13:51 12/31/21 14:00 12/31/21 16:10 Temperature 97.6 F 98.7 F 97.6 F Pulse Rate 78 77 73 Respiratory Rate 16 16 10 L Blood Pressure 152/82 H 139/80 107/63 Pulse Oximetry 100 100 100 Oxygen Delivery Room Air Simple Face Mask Oxygen Flow Rate 8 12/31/21 16:25 12/31/21 16:40 12/31/21 16:50 Temperature Pulse Rate 79 79 84 Respiratory Rate 13 13 13 Blood Pressure 146/75 H 153/75 H 138/64 Pulse Oximetry 98 95 100 Oxygen Delivery Room Air Room Air Room Air Oxygen Flow Rate 12/31/21 17:03 12/31/21 18:15 12/31/21 18:30 Temperature 97.9 F 97.7 F Pulse Rate 86 97 98 Respiratory Rate 15 16 18 Blood Pressure 151/75 H 165/79 H 152/83 H Pulse Oximetry 96 100 100 Oxygen Delivery Room Air Oxygen Flow Rate 12/31/21 19:00 12/31/21 20:00 12/31/21 20:00 Temperature 97.6 F Pulse Rate 97 104 H 104 H Respiratory Rate 18 18 Blood Pressure 148/89 H Pulse Oximetry 100 100 Oxygen Delivery Room Air Oxygen Flow Rate 12/31/21 23:18 01/01/22 00:00 01/01/22 03:18 Temperature 97.5 F L 97.0 F L Pulse Rate 88 74 94 Respiratory Rate 21 H 21 H Blood Pressure 148/79 H 181/85 H Pulse Oximetry 100 100 Oxygen Delivery Oxygen Flow Rate 01/01/22 04:00 01/01/22 07:18 01/01/22 08:40 Temperature 98.1 F 97.7 F Pulse Rate 74 94 81 Respiratory Rate 20 14 Blood Pressure 133/64 141/80 H Pulse Oximetry 99 97 Oxygen Delivery Oxygen Flow Rate 01/01/22 10:00 01/01/22 11:36 Temperature 97.9 F Pulse Rate 78 Respiratory Rate 14 Blood Pressure 154/74 H Pulse Oximetry 99 Oxygen Delivery Room Air Oxygen Flow Rate Intake/Output Intake/Output: Intake & Output 12/29/21 12/30/21 12/31/21 01/01/22 23:59 23:59 23:59 23:59 Intake Total 1000 1550 2050 Output Total 100 320 300 Balance 900 1230 1750 Meds/Results Medications: Active Medications Generic Name Dose Route Start Last Admin Trade Name Freq PRN Reason Stop Dose Admin Acetaminophen 500 mg 12/31/21 02:40 Acetaminophen 500 Mg Tablet PO Q4H PRN Pain Aspirin 81 mg 01/02/22 09:00 Aspirin 81 Mg Enteric Tablet PO QAM [facility] Atorvastatin Calcium 40 mg 12/31/21 09:00 01/01/22 11:00 Atorvastatin 40 Mg Tablet PO 40 mg DAILY DARRIAN Administration Citalopram Hydrobromide 40 mg 12/31/21 09:00 01/01/22 11:00 Citalopram Hydrobromide 20 Mg Tablet PO 40 mg DAILY DARRIAN Administration Clopidogrel Bisulfate 75 mg 01/02/22 09:00 Clopidogrel Bisulfate 75 Mg Tablet PO QAM DARRIAN Dextrose 12.5 gm 01/01/22 07:37 Dextrose 50% 25 Gm/50 Ml Syringe IV PUSH PRN PRN Hypoglycemia Protocol Famotidine 20 mg 12/31/21 09:00 01/01/22 10:59
[2022-01-01 16:24] LABS: Glucose Point of Care 241 mg/dl (65-105)
[2022-01-01] MEDS: hydrOXYzine HCL 25 MG TABLET 50 MG PO (20:19)
[2022-01-01] MEDS: INSULIN GLARGINE (*BKC) 100 UNITS/ML 18 UNITS SUB-Q (20:19)
[2022-01-01 20:39] LABS: Glucose Point of Care 189 mg/dl (65-105)
[2022-01-02] VITALS (13 sets, daily range): BP systolic 141–182; BP diastolic 73–89; PULSE 78–97; RESP 14–20; TEMP 36.4–37.7; O2SAT 98–100; BMI 10.0
[2022-01-02] MEDS: ACETAMINOPHEN 500 MG TABLET PO ×2 (01:02→20:07)
[2022-01-02] MEDS: SODIUM CHLORIDE 0.9% IV 1,000 ML 75 ML IV CONT ×2 (01:02→13:16)
[2022-01-02 05:33] LABS: Hematocrit 27.7 % (42.0-52.0); Hemoglobin 8.7 g/dL (14.0-18.0); Mean Corpuscular HGB Conc 31.4 g/dl (32-36); Mean Corpuscular Hemoglobin 27.4 pg (26-34); Mean Corpuscular Volume 87.4 fl (80-100); Mean Platelet Volume 9.1 fl (7.4-10.4); Platelet Count Result 316 k/mm3 (150-375); Red Blood Count 3.17 M/mm3 (4.6-6.20); Red Cell Distribution Width 12.8 % (11.5-14.5); White Blood Count 11.5 K/mm3 (4.5-10.0)
[2022-01-02 05:47] LABS: Anion Gap 5 mmol/L (8-16); Blood Urea Nitrogen 15 mg/dL (9-20); Calcium 7.6 mg/dL (8.4-10.2); Carbon Dioxide 25 mmol/L (22-30); Chloride 106 mmol/L (98-107); Estimated Glomerular Filt Rate > 60; Glucose 142 mg/dL (65-110); Potassium 3.9 mmol/L (3.4-5.0); Sodium 136 mmol/L (137-145)
[2022-01-02 07:52] LABS: Glucose Point of Care 148 mg/dl (65-105)
[2022-01-02] MEDS: ACIDOPHILUS/BULGARICUS CHEWABLE TABLET 1 TABLET PO (08:11)
[2022-01-02] MEDS: risperiDONE 1 MG TABLET 2 MG PO ×2 (08:11→20:07)
[2022-01-02] MEDS: SENNA/DOCUSATE SODIUM TABLET 2 TAB PO ×2 (08:11→16:38)
[2022-01-02] MEDS: polyethylene glycoL 3350 17 GM POWD.PACK PO (08:11)
[2022-01-02] MEDS: ASPIRIN 81 MG ENTERIC TABLET PO (08:11)
[2022-01-02] MEDS: SILVER SULFADIAZINE 1% CR 400 GM JAR (*BKC) 1 APPLIC TOPICAL (08:12)
[2022-01-02] MEDS: FAMOTIDINE 20 MG TABLET PO (08:12)
[2022-01-02] MEDS: CITALOPRAM HYDROBROMIDE 20 MG TABLET 40 MG PO (08:12)
[2022-01-02] MEDS: CLOPIDOGREL BISULFATE 75 MG TABLET PO (08:12)
[2022-01-02] MEDS: CHOLECALCIFEROL 1,000 UNITS TABLET 1000 UNITS PO (08:12)
[2022-01-02] MEDS: ATORVASTATIN 40 MG TABLET PO (08:12)
[2022-01-02] MEDS: lisinopriL 5 MG TABLET PO (08:12)
[2022-01-02] MEDS: FERROUS SULFATE 324 MG TABLET PO (08:12)
[2022-01-02 11:30] LABS: Glucose Point of Care 214 mg/dl (65-105)
[2022-01-02] MEDS: INSULIN ASPART (*BKC) 100 UNITS/ML SUB-Q ×2 (11:37→16:39)
--- NOTE | 2022-01-02 11:38 | P.PNIM_ITS ---
Progress Note: A&P Assessment and Plan (1) Decreased responsiveness: Code(s): R41.89 - Other symptoms and signs involving cognitive functions and awareness <Reta ArmstrongRamírez AlissonXAVIER mckenna - Last Filed: 01/02/22 12:13> Status: Acute <Reta VinsonXAVIER mckenna - Last Filed: 01/02/22 12:13> Assessment and Plan: 01/01 Patient poorly arousable. 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 on presentation showed likely subacute left temporal-occipital lobe and thalamic infarctions * Appreciate neurology consultation * Continue aspirin and plavix * Lipid panel reviewed. Continue high intensity statin * Echocardiogram revealed preserved ejection fraction, grade 1 diastolic dysfunction, mild aortic stenosis, intact interatrial septum * Carotid Doppler ultrasound with <50% stenosis of bilateral internal carotid arteries * Appreciate PT/OT/ST eval <Reta ArmstrongRamírez Nur PA-C - Last Filed: 01/02/22 12:13> (3) Closed displaced fracture of right femoral neck: Code(s): S72.001A - Fracture of unspecified part of neck of right femur, initial encounter for closed fracture <Reta JRamírez Nur PA-C - Last Filed: 01/02/22 12:13> Status: Acute <Reta ArmstrongRamírez AlissonXAVIER mckenna - Last Filed: 01/02/22 12:13> Assessment and Plan: Secondary to fall. Pelvis x-ray on presentation showed displaced right femoral neck fracture * Appreciate orthopedic surgery consultation * Patient is s/p bipolar hemiarthroplasty of the right hip performed on 12/31/[address] Phipps * Supportive care. Analgesics available as needed * Wound care, weight-bearing status, DVT prophylaxis per Orthopedic surgery * Continue PT/OT <Reta ArmstrongHUNTER Hopper-C - Last Filed: 01/02/22 12:13> (4) Fall: Code(s): W19.XXXA - Unspecified fall, initial encounter <Reta ArmstrongHUNTER Hopper-C - Last Filed: 01/02/22 12:13> Status: Acute <Reta ArmstrongRamírez AlissonHUNTER mckenna-C - Last Filed: 01/02/22 12:13> Assessment and Plan: Unwitnessed fall, patient found on the ground by his wheelchair as above * Implement fall precautions <Reta ArmstrongRamírez Alissonbala PA-C - Last Filed: 01/02/22 12:13> (5) Chronic kidney disease: Code(s): N18.9 - Chronic kidney disease, unspecified <Reta ArmstrongRamírez AlissonHUNTER mckenna-C - Last Filed: 01/02/22 12:13> Status: Acute <Reta ArmstrongRamírez AlissonHUNTER mckenna-C - Last Filed: 01/02/22 12:13> Assessment and Plan: Renal function is stable * Monitor BMP <Reta ArmstrongRamírez AlissonHUNTER mckenna-C - Last Filed: 01/02/22 12:13> (6) Diabetes: Code(s): E11.9 - Type 2 diabetes mellitus without complications <HUNTER Yousif-C - Last Filed: 01/02/22 12:13> Status: Acute <Reta JRamírez Alissonbala PA-C - Last Filed: 01/02/22 12:13> Assessment and Plan: A1c is 8.9 * Continue Accu-Cheks, moderate dose sliding scale insulin, and hypoglycemic protocol * Lantus 18 units qHS * Home metformin and glipizide on hold *
--- NOTE | 2022-01-02 11:38 | PM.IMPN ---
Progress Note: A&P Assessment and Plan (1) Decreased responsiveness: Code(s): R41.89 - Other symptoms and signs involving cognitive functions and awareness <Reta Nur PA-C - Last Filed: 01/02/22 12:13> Status: Acute <Reta ArmstrongLAWANDA HopperC - Last Filed: 01/02/22 12:13> Assessment and Plan: 01/01 Patient poorly arousable. 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 on presentation showed likely subacute left temporal-occipital lobe and thalamic infarctions Appreciate neurology consultation Continue aspirin and plavix Lipid panel reviewed. Continue high intensity statin Echocardiogram revealed preserved ejection fraction, grade 1 diastolic dysfunction, mild aortic stenosis, intact interatrial septum Carotid Doppler ultrasound with <50% stenosis of bilateral internal carotid arteries Appreciate PT/OT/ST eval <Reta Nur PA-C - Last Filed: 01/02/22 12:13> (3) Closed displaced fracture of right femoral neck: Code(s): S72.001A - Fracture of unspecified part of neck of right femur, initial encounter for closed fracture <Reta Nur PA-C - Last Filed: 01/02/22 12:13> Status: Acute <Reta Nur PA-C - Last Filed: 01/02/22 12:13> Assessment and Plan: Secondary to fall. Pelvis x-ray on presentation showed displaced right femoral neck fracture Appreciate orthopedic surgery consultation Patient is s/p bipolar hemiarthroplasty of the right hip performed on 12/31/[address] Phipps Supportive care. Analgesics available as needed Wound care, weight-bearing status, DVT prophylaxis per Orthopedic surgery Continue PT/OT <RetaHUNTER Junior-C - Last Filed: 01/02/22 12:13> (4) Fall: Code(s): W19.XXXA - Unspecified fall, initial encounter <Reta ArmstrongRamírez Nur PA-C - Last Filed: 01/02/22 12:13> Status: Acute <Reta ArmstrongRamírez Alissonbala PA-C - Last Filed: 01/02/22 12:13> Assessment and Plan: Unwitnessed fall, patient found on the ground by his wheelchair as above Implement fall precautions <Reta PattiRamírez Nur PA-C - Last Filed: 01/02/22 12:13> (5) Chronic kidney disease: Code(s): N18.9 - Chronic kidney disease, unspecified <Reta ArmstrongRamírez Nur PA-C - Last Filed: 01/02/22 12:13> Status: Acute <Reta ArmstrongRamírez Alissonbala PA-C - Last Filed: 01/02/22 12:13> Assessment and Plan: Renal function is stable Monitor BMP <Reta PattiRamírez Nur PA-C - Last Filed: 01/02/22 12:13> (6) Diabetes: Code(s): E11.9 - Type 2 diabetes mellitus without complications <Reta Nur PA-C - Last Filed: 01/02/22 12:13> Status: Acute <Reta ArmstrongRamírez Nur PA-C - Last Filed: 01/02/22 12:13> Assessment and Plan: A1c is 8.9 Continue Accu-Cheks, moderate dose sliding scale insulin, and hypoglycemic protocol Lantus 18 units qHS Home metformin and glipizide on hold Monitor glucose trends closely and adjust insulin regimen as needed <Reta PattiRamírez Nur PA-C - Last Filed: 01/02/22 12:13> (7) Dysphagia: Code(s): R13.10 - Dysphagia, unspecified <Reta JRamírez Nur PA-C - Last Filed: 01/02/22 12:13> Status: Acute <Reta Nur PA-C - Last Filed: 01/02/22 12:13> Assessment and Plan: Patient with history o
[2022-01-02 16:30] LABS: Glucose Point of Care 210 mg/dl (65-105)
--- NOTE | 2022-01-02 19:03 | PM.PNORT ---
Progress Note: A&P Assessment and Plan (1) Closed displaced fracture of right femoral neck: Code(s): S72.001A - Fracture of unspecified part of neck of right femur, initial encounter for closed fracture Status: Acute Plan Postop day 2: Right Bipolar hemiarthroplasty. Patient tolerated procedure well. Patient sleeping comfortably. Ortho instructions: (surgery 12/31/21) D/C to SNF/rehab Xray 2 weeks post op. f/u in office at 4 weeks post op. Wound Care: Remove Mepilex at 7 days post op. Remove steristrips at 14 days post op. May shower. No soaking wound. PT: WBAT with walker. DVT prophylaxis: Continue home blood thinners. Pain medication: Tylenol Subjective Subjective Date/Time Seen: 01/02/22 19:04 Patient sleeping comfortably in bed. Review of Systems Review of Systems: ROS unobtainable: Yes unobtainable due to mental status Exam Narrative: Normal weight 61 y/o Male. Sleeping comfortably in bed. Wearing compression socks bilaterally. Dressing dry and intact with no drainage. Moderate swelling. No swelling. No ecchymosis. No erythema. No hematoma. Calf and Thigh soft. No varicosities. Distal pulses palpable. Objective Data Vital Signs Vital Signs: Vital Signs - 24 hr 01/01/22 22:06 01/01/22 20:00 01/01/22 20:00 Temperature 99.8 F H Pulse Rate 91 97 91 Respiratory Rate 18 18 Blood Pressure 156/74 H Pulse Oximetry 99 99 Oxygen Delivery Room Air 01/02/22 00:00 01/02/22 02:30 01/02/22 04:00 Temperature 99.9 F H Pulse Rate 85 83 83 Respiratory Rate 14 Blood Pressure 154/73 H Pulse Oximetry 99 Oxygen Delivery 01/02/22 07:01 01/02/22 07:55 01/02/22 09:51 Temperature 98.7 F Pulse Rate 83 Respiratory Rate 14 Blood Pressure 182/84 H Pulse Oximetry 100 98 Oxygen Delivery Room Air Room Air 01/02/22 08:00 01/02/22 10:00 01/02/22 12:00 Temperature 97.6 F Pulse Rate 97 97 84 Respiratory Rate 16 Blood Pressure 150/79 H Pulse Oximetry 100 Oxygen Delivery 01/02/22 13:58 01/02/22 16:00 Temperature 97.9 F Pulse Rate 93 85 Respiratory Rate 16 Blood Pressure 152/89 H Pulse Oximetry 100 Oxygen Delivery Intake/Output Intake/Output: Intake & Output 12/30/21 12/31/21 01/01/22 01/02/22 23:59 23:59 23:59 23:59 Intake Total 1000 1550 2986 2534 Output Total 100 320 500 Balance 900 1230 2486 2534 Meds/Results Medications: Active Medications Generic Name Dose Route Start Last Admin Trade Name Freq PRN Reason Stop Dose Admin Acetaminophen 500 mg 12/31/21 02:40 01/02/22 01:02 Acetaminophen 500 Mg Tablet PO 500 mg Q4H PRN Administration Pain Aspirin 81 mg 01/02/22 09:00 01/02/22 08:11 Aspirin 81 Mg Enteric Tablet PO 81 mg QAM DARRIAN Administration Atorvastatin Calcium 40 mg 12/31/21 09:00 01/02/22 08:12 Atorvastatin 40 Mg Tablet PO 40 mg DAILY DARRIAN Administration Citalopram Hydrobromide 40 mg 12/31/21 09:00 01/02/22 08:12 Citalopram Hydrobromide 20 Mg Tablet PO 40 mg DAILY DARRIAN Administration Clopidogrel Bisulfate 75 mg 01/02/22 09:00 01/02/22 08:12 Clopidogrel Bisulfate 75 Mg Tablet PO 75 mg QAM DARRIAN Administration Dextrose 12.5 gm 01/01/22 07:37 Dextrose 50% 25 Gm/50 Ml Syringe IV PUSH PRN PRN Hypoglycemia Protocol Famotidine 20 mg 12/31/21 09:00 01/02/22 08:12 Famotidine 20 Mg Tablet PO 20 mg DAILY DARRIAN Administration Fentanyl Citrate 25 mcg 12/31/21 13:53 Fentanyl Citrate Inj (*Crx) 100 Mcg/2 Ml Vial IV PUSH Q2M PRN Pain Ferrous Sulfate 324 mg 12/31/21 09:00 01/02/22 08:12 Ferrous Sulfate 324 Mg Tablet PO 324 mg DAILY DARRIAN Administration Glucagon 1 mg 01/01/22 07:37 Glucagon For Inj 1 Mg Vial IM PRN PRN Hypoglycemia Protocol Glucose 15 gm 01/01/22 07:37 Glucose Oral Gel 15 Gm Of Glucse In 37.5 Gm Tube PO PRN PRN Hypoglycemia Protocol Hydroxyzin
[2022-01-02] MEDS: hydrOXYzine HCL 25 MG TABLET 50 MG PO (20:07)
[2022-01-02] MEDS: INSULIN GLARGINE (*BKC) 100 UNITS/ML 18 UNITS SUB-Q (20:08)
[2022-01-02 20:11] LABS: Glucose Point of Care 207 mg/dl (65-105)
[2022-01-03] VITALS (11 sets, daily range): BP systolic 144–170; BP diastolic 77–85; PULSE 67–88; RESP 14–21; TEMP 36.3–37.3; O2SAT 99–100; BMI 11.0
[2022-01-03] MEDS: SODIUM CHLORIDE 0.9% IV 1,000 ML 75 ML IV CONT (03:48)
[2022-01-03 05:43] LABS: Hematocrit 24.4 % (42.0-52.0); Hemoglobin 7.7 g/dL (14.0-18.0); Mean Corpuscular HGB Conc 31.6 g/dl (32-36); Mean Corpuscular Volume 85.6 fl (80-100); Mean Platelet Volume 9.1 fl (7.4-10.4); Platelet Count Result 316 k/mm3 (150-375); Red Blood Count 2.85 M/mm3 (4.6-6.20); Red Cell Distribution Width 12.9 % (11.5-14.5); White Blood Count 10.9 K/mm3 (4.5-10.0)
[2022-01-03 05:57] LABS: Anion Gap 3 mmol/L (8-16); Blood Urea Nitrogen 15 mg/dL (9-20); Calcium 7.5 mg/dL (8.4-10.2); Carbon Dioxide 25 mmol/L (22-30); Chloride 106 mmol/L (98-107); Estimated Glomerular Filt Rate > 60; Glucose 148 mg/dL (65-110); Potassium 3.8 mmol/L (3.4-5.0); Sodium 134 mmol/L (137-145)
[2022-01-03 07:48] LABS: Glucose Point of Care 134 mg/dl (65-105)
[2022-01-03] MEDS: ACIDOPHILUS/BULGARICUS CHEWABLE TABLET 1 TABLET PO (08:15)
[2022-01-03] MEDS: ATORVASTATIN 40 MG TABLET PO (08:15)
[2022-01-03] MEDS: CLOPIDOGREL BISULFATE 75 MG TABLET PO (08:15)
[2022-01-03] MEDS: CITALOPRAM HYDROBROMIDE 20 MG TABLET 40 MG PO (08:15)
[2022-01-03] MEDS: FERROUS SULFATE 324 MG TABLET PO (08:16)
[2022-01-03] MEDS: polyethylene glycoL 3350 17 GM POWD.PACK PO (08:16)
[2022-01-03] MEDS: ASPIRIN 81 MG ENTERIC TABLET PO (08:16)
[2022-01-03] MEDS: FAMOTIDINE 20 MG TABLET PO (08:16)
[2022-01-03] MEDS: SENNA/DOCUSATE SODIUM TABLET 2 TAB PO (08:16)
[2022-01-03] MEDS: lisinopriL 5 MG TABLET PO (08:16)
[2022-01-03] MEDS: risperiDONE 1 MG TABLET 2 MG PO ×2 (08:16→19:58)
[2022-01-03] MEDS: CHOLECALCIFEROL 1,000 UNITS TABLET 1000 UNITS PO (08:16)
[2022-01-03] MEDS: SILVER SULFADIAZINE 1% CR 400 GM JAR (*BKC) 1 APPLIC TOPICAL (08:17)
[2022-01-03 09:00] LABS: Folic Acid 5.6 ng/mL (2.76->20)
[2022-01-03 10:01] LABS: Iron 22 ug/dL (49-181)
[2022-01-03 10:10] LABS: Percent Iron Saturation 14 % (20-50)
--- NOTE | 2022-01-03 10:37 | PM.PNORT ---
Progress Note: A&P Assessment and Plan (1) Closed displaced fracture of right femoral neck: Code(s): S72.001A - Fracture of unspecified part of neck of right femur, initial encounter for closed fracture Status: Acute Plan Postop day 3: Right Bipolar hemiarthroplasty. Patient tolerated procedure well. Patient resting comfortably. Dressing dry and intact. Progressing well. Ortho instructions: (surgery 12/31/21) D/C to SNF/rehab Xray 2 weeks post op. f/u in office at 4 weeks post op. Wound Care: Remove Mepilex at 7 days post op. Remove steristrips at 14 days post op. May shower. No soaking wound. PT: WBAT with walker. DVT prophylaxis: Continue home blood thinners. Pain medication: Tylenol Subjective Subjective Date/Time Seen: 01/03/22 10:37 Patient resting comfortably in a chair at the time of my visit. Review of Systems Review of Systems: ROS unobtainable: Yes unobtainable due to mental status Exam Narrative: Normal weight 61 y/o Male. Sleeping comfortably in bed. Wearing compression socks bilaterally. Dressing dry and intact with no drainage. Moderate swelling. No swelling. No ecchymosis. No erythema. No hematoma. Calf and Thigh soft. No varicosities. Distal pulses palpable. Objective Data Vital Signs Vital Signs: Vital Signs - 24 hr 01/02/22 12:00 01/02/22 13:58 01/02/22 16:00 Temperature 97.9 F Pulse Rate 84 93 85 Respiratory Rate 16 Blood Pressure 152/89 H Pulse Oximetry 100 Oxygen Delivery 01/02/22 19:35 01/02/22 20:00 01/02/22 22:00 Temperature 97.9 F Pulse Rate 85 78 91 Respiratory Rate 16 20 Blood Pressure 141/78 H Pulse Oximetry 100 99 Oxygen Delivery Room Air 01/03/22 00:00 01/03/22 02:30 01/03/22 04:00 Temperature 97.6 F Pulse Rate 80 86 82 Respiratory Rate 20 Blood Pressure 170/81 H Pulse Oximetry 99 Oxygen Delivery 01/03/22 06:00 01/03/22 08:15 01/03/22 08:00 Temperature 97.5 F L 99.1 F Pulse Rate 80 67 74 Respiratory Rate 21 H 20 Blood Pressure 145/85 H 161/77 H Pulse Oximetry 100 99 Oxygen Delivery Intake/Output Intake/Output: Intake & Output 12/31/21 01/01/22 01/02/22 01/03/22 23:59 23:59 23:59 23:59 Intake Total 1550 2986 2534 1360 Output Total 320 500 Balance 1230 2486 2534 1360 Meds/Results Medications: Active Medications Generic Name Dose Route Start Last Admin Trade Name Freq PRN Reason Stop Dose Admin Acetaminophen 500 mg 12/31/21 02:40 01/02/22 20:07 Acetaminophen 500 Mg Tablet PO 500 mg Q4H PRN Administration Pain Aspirin 81 mg 01/02/22 09:00 01/03/22 08:16 Aspirin 81 Mg Enteric Tablet PO 81 mg QAM DARRIAN Administration Atorvastatin Calcium 40 mg 12/31/21 09:00 01/03/22 08:15 Atorvastatin 40 Mg Tablet PO 40 mg DAILY DARRIAN Administration Citalopram Hydrobromide 40 mg 12/31/21 09:00 01/03/22 08:15 Citalopram Hydrobromide 20 Mg Tablet PO 40 mg DAILY DARRIAN Administration Clopidogrel Bisulfate 75 mg 01/02/22 09:00 01/03/22 08:15 Clopidogrel Bisulfate 75 Mg Tablet PO 75 mg QAM DARRIAN Administration Dextrose 12.5 gm 01/01/22 07:37 Dextrose 50% 25 Gm/50 Ml Syringe IV PUSH PRN PRN Hypoglycemia Protocol Famotidine 20 mg 12/31/21 09:00 01/03/22 08:16 Famotidine 20 Mg Tablet PO 20 mg DAILY DARRIAN Administration Fentanyl Citrate 25 mcg 12/31/21 13:53 Fentanyl Citrate Inj (*Crx) 100 Mcg/2 Ml Vial IV PUSH Q2M PRN Pain Ferrous Sulfate 324 mg 12/31/21 09:00 01/03/22 08:16 Ferrous Sulfate 324 Mg Tablet PO 324 mg DAILY DARRIAN Administration Glucagon 1 mg 01/01/22 07:37 Glucagon For Inj 1 Mg Vial IM PRN PRN Hypoglycemia Protocol Glucose 15 gm 01/01/22 07:37 Glucose Oral Gel 15 Gm Of Glucse In 37.5 Gm Tube PO PRN PRN Hypoglycemia Protocol Hydroxyzine HCl 50 mg 12/31/21 21:00 01/02/22 20:07 Hydroxyzine Hcl 25 Mg Tablet PO 50 mg
[2022-01-03 11:37] LABS: Glucose Point of Care 186 mg/dl (65-105)
--- NOTE | 2022-01-03 16:04 | P.PNIM_ITS ---
Progress Note: A&P Assessment and Plan (1) Decreased responsiveness: Code(s): R41.89 - Other symptoms and signs involving cognitive functions and awareness <Reta Vinsonbala HUNTERAllie - Last Filed: 01/03/22 16:11> Status: Acute <Reta Nur HUNTERMiguel ÁngelC - Last Filed: 01/03/22 16:11> Assessment and Plan: 01/01 Patient poorly arousable. Rapid response called * At baseline, patient is nonverbal and poorly arousable per daughter reports * Repeat stat labs unremarkable, head CT and CT abdomen/pelvis with no acute findings * EKG showed sinus rhythm * Vital signs stable * Preliminary blood cultures no growth to date <Reta ArmstrongRamírez AlissonXAVIER mckenna - Last Filed: 01/03/22 16:11> (2) CVA (cerebral vascular accident): Code(s): I63.9 - Cerebral infarction, unspecified <Reta ArmstrongRamírez AlissonLAWANDA mckennaC - Last Filed: 01/03/22 16:11> Status: Acute <Reta Vinsonbala HUNTERMiguel ÁngelC - Last Filed: 01/03/22 16:11> Assessment and Plan: 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 on presentation showed likely subacute left temporal-occipital lobe and thalamic infarctions * Appreciate neurology consultation * Continue aspirin and plavix * Lipid panel reviewed. Continue high intensity statin * Echocardiogram revealed preserved ejection fraction, grade 1 diastolic dysfunction, mild aortic stenosis, intact interatrial septum * Carotid Doppler ultrasound with <50% stenosis of bilateral internal carotid arteries * Appreciate PT/OT/ST eval <Reta ArmstrongRamírez Alissonbala HUNTERAllie - Last Filed: 01/03/22 16:11> (3) Closed displaced fracture of right femoral neck: Code(s): S72.001A - Fracture of unspecified part of neck of right femur, initial encounter for closed fracture <Reta ArmstrongRamírez Nur PA-C - Last Filed: 01/03/22 16:11> Status: Acute <Reta VinsonLAWANDA mckennaC - Last Filed: 01/03/22 16:11> Assessment and Plan: Secondary to fall. Pelvis x-ray on presentation showed displaced right femoral neck fracture * Appreciate orthopedic surgery consultation * Patient is s/p bipolar hemiarthroplasty of the right hip performed on 12/31/[address] Phipps * Supportive care. Analgesics available as needed * Wound care, weight-bearing status, DVT prophylaxis per Orthopedic surgery * Continue PT/OT. Planning for SNF on discharge <LAWANDA YousifC - Last Filed: 01/03/22 16:11> (4) Fall: Code(s): W19.XXXA - Unspecified fall, initial encounter <LAWANDA YousifC - Last Filed: 01/03/22 16:11> Status: Acute <Reta JRamírez AlissonHUNTER mckenna-C - Last Filed: 01/03/22 16:11> Assessment and Plan: Unwitnessed fall, patient found on the ground by his wheelchair as above * Implement fall precautions <HUNTER Yousif-C - Last Filed: 01/03/22 16:11> (5) Chronic kidney disease: Code(s): N18.9 - Chronic kidney disease, unspecified <Reta PattiLAWANDA HopperC - Last Filed: 01/03/22 16:11> Status: Acute <Reta JRamírez AlissonHUNTER mckenna-C - Last Filed: 01/03/22 16:11> Assessment and Plan: Renal function is stable * Monitor BMP <Reta JHUNTER HopperMiguel ÁngelC - Last Filed: 01/03/22 16:11> (6) Diabetes: Code(s): E11.9 - Type 2 diabetes mellitus without complications <LAWANDA YousifC - Last Filed: 01/03/22 16:11> Status: Acute <Reta PattiHUNTER Hopper-C - Last Filed: 01/03/22 16:11> Assessment and Plan: A1c is 8.9 * Continue Accu-Cheks, moderate dose sliding scale insulin, and hypoglycemic protocol * Lantus 18 units qHS * Home metformin and glipizide on
--- NOTE | 2022-01-03 16:04 | PM.IMPN ---
Progress Note: A&P Assessment and Plan (1) Decreased responsiveness: Code(s): R41.89 - Other symptoms and signs involving cognitive functions and awareness <Reta JRamírez Nur PA-C - Last Filed: 01/03/22 16:11> Status: Acute <Reta VinsonLAWANDA mckennaC - Last Filed: 01/03/22 16:11> Assessment and Plan: 01/01 Patient poorly arousable. 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 on presentation showed likely subacute left temporal-occipital lobe and thalamic infarctions Appreciate neurology consultation Continue aspirin and plavix Lipid panel reviewed. Continue high intensity statin Echocardiogram revealed preserved ejection fraction, grade 1 diastolic dysfunction, mild aortic stenosis, intact interatrial septum Carotid Doppler ultrasound with <50% stenosis of bilateral internal carotid arteries Appreciate PT/OT/ST eval <Reta Nur PA-C - Last Filed: 01/03/22 16:11> (3) Closed displaced fracture of right femoral neck: Code(s): S72.001A - Fracture of unspecified part of neck of right femur, initial encounter for closed fracture <Reta Nur PA-C - Last Filed: 01/03/22 16:11> Status: Acute <Reta PattiLAWNADA HopperC - Last Filed: 01/03/22 16:11> Assessment and Plan: Secondary to fall. Pelvis x-ray on presentation showed displaced right femoral neck fracture Appreciate orthopedic surgery consultation Patient is s/p bipolar hemiarthroplasty of the right hip performed on 12/31/[address] Phipps Supportive care. Analgesics available as needed Wound care, weight-bearing status, DVT prophylaxis per Orthopedic surgery Continue PT/OT. Planning for SNF on discharge <LAWANDA YousifC - Last Filed: 01/03/22 16:11> (4) Fall: Code(s): W19.XXXA - Unspecified fall, initial encounter <LAWANDA YousifC - Last Filed: 01/03/22 16:11> Status: Acute <HUNTER Yousif-C - Last Filed: 01/03/22 16:11> Assessment and Plan: Unwitnessed fall, patient found on the ground by his wheelchair as above Implement fall precautions <HUNTER Yousif-C - Last Filed: 01/03/22 16:11> (5) Chronic kidney disease: Code(s): N18.9 - Chronic kidney disease, unspecified <HUNTER Yousif-C - Last Filed: 01/03/22 16:11> Status: Acute <HUNTER Yousif-C - Last Filed: 01/03/22 16:11> Assessment and Plan: Renal function is stable Monitor BMP <HUNTER Yousif-C - Last Filed: 01/03/22 16:11> (6) Diabetes: Code(s): E11.9 - Type 2 diabetes mellitus without complications <HUNTER Yousif-C - Last Filed: 01/03/22 16:11> Status: Acute <HUNTER Yousif-C - Last Filed: 01/03/22 16:11> Assessment and Plan: A1c is 8.9 Continue Accu-Cheks, moderate dose sliding scale insulin, and hypoglycemic protocol Lantus 18 units qHS Home metformin and glipizide on hold Monitor glucose trends closely and adjust insulin regimen as needed <HUNTER Yousif-C - Last Filed: 01/03/22 16:11> (7) Dysphagia: Code(s): R13.10 - Dysphagia, unspecified <Reta Nur PA-C - Last Filed: 01/03/22 16:11> Status: Acute <Reta Nur PA-C - Last Filed: 01/03/22 16:11> Assessment and Plan: Patient w
[2022-01-03 16:21] LABS: Glucose Point of Care 195 mg/dl (65-105)
[2022-01-03 18:05] LABS: Hemoglobin 8.5 g/dL (14.0-18.0)
[2022-01-03] MEDS: hydrOXYzine HCL 25 MG TABLET 50 MG PO (19:58)
[2022-01-03] MEDS: INSULIN GLARGINE (*BKC) 100 UNITS/ML 18 UNITS SUB-Q (20:01)
[2022-01-03 20:46] LABS: Glucose Point of Care 217 mg/dl (65-105)
[2022-01-04 02:00] VITALS: BP 157/77; PULSE 76; RESP 12; TEMP 37.3; O2SAT 99
[2022-01-04 05:38] LABS: Hematocrit 23.3 % (42.0-52.0); Hemoglobin 7.6 g/dL (14.0-18.0); Mean Corpuscular HGB Conc 32.6 g/dl (32-36); Mean Corpuscular Hemoglobin 27.4 pg (26-34); Mean Corpuscular Volume 84.1 fl (80-100); Mean Platelet Volume 9.1 fl (7.4-10.4); Platelet Count Result 361 k/mm3 (150-375); Red Blood Count 2.77 M/mm3 (4.6-6.20); Red Cell Distribution Width 12.9 % (11.5-14.5); White Blood Count 9.9 K/mm3 (4.5-10.0)
[2022-01-04 05:48] LABS: Anion Gap 3 mmol/L (8-16); Blood Urea Nitrogen 17 mg/dL (9-20); Calcium 7.7 mg/dL (8.4-10.2); Carbon Dioxide 27 mmol/L (22-30); Chloride 104 mmol/L (98-107); Estimated Glomerular Filt Rate > 60; Glucose 129 mg/dL (65-110); Potassium 3.8 mmol/L (3.4-5.0); Sodium 134 mmol/L (137-145)
[2022-01-04 06:48] VITALS: BP 149/70; PULSE 74; RESP 16; TEMP 37.2; O2SAT 100
[2022-01-04 07:48] LABS: Glucose Point of Care 116 mg/dl (65-105)
--- NOTE | 2022-01-04 08:22 | P.PN_ITS ---
Progress Note: A&P Assessment and Plan (1) Acute CVA (cerebrovascular accident): Code(s): I63.9 - Cerebral infarction, unspecified Status: Acute Plan Progress Note: A&P Assessment and Plan (1) Decreased responsiveness: ?Code(s): R41.89 - Other symptoms and signs involving cognitive functions and awareness ?Status:?Acute ?Assessment and Plan: 01/01 Patient poorly arousable.? 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 on presentation showed likely subacute left temporal-occipital lobe and thalamic infarctions * Appreciate neurology consultation * Continue aspirin and plavix * Lipid panel reviewed. Continue high intensity statin * Echocardiogram revealed preserved ejection fraction, grade 1 diastolic dysfunction, mild aortic stenosis, intact interatrial septum * Carotid Doppler ultrasound with <50% stenosis of bilateral internal carotid arteries * Appreciate PT/OT/ST eval (3) Closed displaced fracture of right femoral neck: ?Code(s): S72.001A - Fracture of unspecified part of neck of right femur, initial encounter for closed fracture ?Status:?Acute ?Assessment and Plan: Secondary to fall. Pelvis x-ray on presentation showed displaced right femoral neck fracture * Appreciate orthopedic surgery consultation * Patient is s/p bipolar hemiarthroplasty of the right hip performed on 12/31/[address] Phipps * Supportive care.? Analgesics available as needed * Wound care, weight-bearing status, DVT prophylaxis per Orthopedic surgery * Continue PT/OT. Planning for SNF on discharge (4) Fall: ?Code(s): W19.XXXA - Unspecified fall, initial encounter ?Status:?Acute ?Assessment and Plan: Unwitnessed fall, patient found on the ground by his wheelchair as above * Implement fall precautions (5) Chronic kidney disease: ?Code(s): N18.9 - Chronic kidney disease, unspecified ?Status:?Acute ?Assessment and Plan: Renal function is stable * Monitor BMP (6) Diabetes: ?Code(s): E11.9 - Type 2 diabetes mellitus without complications ?Status:?Acute ?Assessment and Plan: A1c is 8.9 * Continue Accu-Cheks, moderate dose sliding scale insulin, and hypoglycemic protocol * Lantus 18 units qHS * Home metformin and glipizide on hold * Monitor glucose trends closely and adjust insulin regimen as needed (7) Dysphagia: ?Code(s): R13.10 - Dysphagia, unspecified ?Status:?Acute ?Assessment and Plan: Patient with history of dysphagia * Bedside swallow study completed on 12/31/21 * Continue soft/bite size diet with regular liquids based on ST recommendations * Provide assistance with meals * Aspiration precautions implemented (8) Normocytic anemia: ?Code(s): D64.9 - Anemia, unspecified ?Status:?Acute ?Assessment and Plan: Patient with chronic anemia.? Declined H&H postoperatively, likely due to surgical blood loss * No evidence of active bleeding * Hemoglobin 7.7>8.5>7.6 t * Iron panel consistent with anemia of chronic disease.? B12 and folate levels within normal limits * ?
--- NOTE | 2022-01-04 08:22 | WPDPN ---
Progress Note: A&P Assessment and Plan (1) Acute CVA (cerebrovascular accident): Code(s): I63.9 - Cerebral infarction, unspecified Status: Acute Plan Progress Note: A&P Assessment and Plan (1) Decreased responsiveness: ?Code(s): R41.89 - Other symptoms and signs involving cognitive functions and awareness ?Status:?Acute ?Assessment and Plan: 01/01 Patient poorly arousable.? 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 Head CT on presentation showed likely subacute left temporal-occipital lobe and thalamic infarctions Appreciate neurology consultation Continue aspirin and plavix Lipid panel reviewed. Continue high intensity statin Echocardiogram revealed preserved ejection fraction, grade 1 diastolic dysfunction, mild aortic stenosis, intact interatrial septum Carotid Doppler ultrasound with <50% stenosis of bilateral internal carotid arteries Appreciate PT/OT/ST eval (3) Closed displaced fracture of right femoral neck: ?Code(s): S72.001A - Fracture of unspecified part of neck of right femur, initial encounter for closed fracture ?Status:?Acute ?Assessment and Plan: Secondary to fall. Pelvis x-ray on presentation showed displaced right femoral neck fracture Appreciate orthopedic surgery consultation Patient is s/p bipolar hemiarthroplasty of the right hip performed on 12/31/[address] Phipps Supportive care.? Analgesics available as needed Wound care, weight-bearing status, DVT prophylaxis per Orthopedic surgery Continue PT/OT. Planning for SNF on discharge (4) Fall: ?Code(s): W19.XXXA - Unspecified fall, initial encounter ?Status:?Acute ?Assessment and Plan: Unwitnessed fall, patient found on the ground by his wheelchair as above Implement fall precautions (5) Chronic kidney disease: ?Code(s): N18.9 - Chronic kidney disease, unspecified ?Status:?Acute ?Assessment and Plan: Renal function is stable Monitor BMP (6) Diabetes: ?Code(s): E11.9 - Type 2 diabetes mellitus without complications ?Status:?Acute ?Assessment and Plan: A1c is 8.9 Continue Accu-Cheks, moderate dose sliding scale insulin, and hypoglycemic protocol Lantus 18 units qHS Home metformin and glipizide on hold Monitor glucose trends closely and adjust insulin regimen as needed (7) Dysphagia: ?Code(s): R13.10 - Dysphagia, unspecified ?Status:?Acute ?Assessment and Plan: Patient with history of dysphagia Bedside swallow study completed on 12/31/21 Continue soft/bite size diet with regular liquids based on ST recommendations Provide assistance with meals Aspiration precautions implemented (8) Normocytic anemia: ?Code(s): D64.9 - Anemia, unspecified ?Status:?Acute ?Assessment and Plan: Patient with chronic anemia.? Declined H&H postoperatively, likely due to surgical blood loss No evidence of active bleeding Hemoglobin 7.7>8.5>7.6 t Iron panel consistent with anemia of chronic disease.? B12 and folate levels within normal limits ? Transfuse as needed to maintain hemoglobin 7.0 or greater Time Spent With Patient Time with patient: 25 - 35 minutes Subjective Date/time seen: 01/04/22 08:22 Interval history: patient is a poor historian unable to answer questions or follow commands unsure if this is his baseline. Patient does not appear to be in any distress at the time of the visit. Review of Systems Review of Systems: All systems reviewed & are unremarkable exc
[2022-01-04] MEDS: CHOLECALCIFEROL 1,000 UNITS TABLET 1000 UNITS PO (08:38)
[2022-01-04] MEDS: risperiDONE 1 MG TABLET 2 MG PO ×2 (08:38→20:28)
[2022-01-04] MEDS: lisinopriL 5 MG TABLET PO (08:38)
[2022-01-04] MEDS: ACIDOPHILUS/BULGARICUS CHEWABLE TABLET 1 TABLET PO (08:38)
[2022-01-04] MEDS: FERROUS SULFATE 324 MG TABLET PO (08:38)
[2022-01-04] MEDS: CLOPIDOGREL BISULFATE 75 MG TABLET PO (08:38)
[2022-01-04] MEDS: FAMOTIDINE 20 MG TABLET PO (08:39)
[2022-01-04] MEDS: ASPIRIN 81 MG ENTERIC TABLET PO (08:39)
[2022-01-04] MEDS: ATORVASTATIN 40 MG TABLET PO (08:39)
[2022-01-04] MEDS: CITALOPRAM HYDROBROMIDE 20 MG TABLET 40 MG PO (08:39)
[2022-01-04] MEDS: SILVER SULFADIAZINE 1% CR 400 GM JAR (*BKC) 1 APPLIC TOPICAL (09:05)
[2022-01-04 09:40] VITALS: BP 131/65; PULSE 80; RESP 20; TEMP 35.8; O2SAT 99
[2022-01-04 11:47] LABS: Glucose Point of Care 162 mg/dl (65-105)
[2022-01-04 14:45] VITALS: BP 145/78; PULSE 71; RESP 20; TEMP 36.6; O2SAT 97
[2022-01-04 16:34] LABS: Glucose Point of Care 191 mg/dl (65-105)
[2022-01-04 19:00] VITALS: BP 161/72; PULSE 74; RESP 18; TEMP 36.4; O2SAT 99
[2022-01-04] MEDS: hydrOXYzine HCL 25 MG TABLET 50 MG PO (20:28)
[2022-01-04] MEDS: INSULIN GLARGINE (*BKC) 100 UNITS/ML 18 UNITS SUB-Q (20:28)
[2022-01-04 20:31] LABS: Glucose Point of Care 199 mg/dl (65-105)
[2022-01-04 21:00] VITALS: BP 165/95; PULSE 76; RESP 15; TEMP 37.7; O2SAT 99
[2022-01-05 00:31] VITALS: BP 137/85; PULSE 82; RESP 14; TEMP 36.7; O2SAT 99
[2022-01-05 05:22] LABS: Hematocrit 24.4 % (42.0-52.0); Hemoglobin 7.9 g/dL (14.0-18.0); Mean Corpuscular HGB Conc 32.4 g/dl (32-36); Mean Corpuscular Hemoglobin 27.4 pg (26-34); Mean Corpuscular Volume 84.7 fl (80-100); Mean Platelet Volume 8.7 fl (7.4-10.4); Platelet Count Result 422 k/mm3 (150-375); Red Blood Count 2.88 M/mm3 (4.6-6.20); White Blood Count 9.3 K/mm3 (4.5-10.0)
[2022-01-05 05:31] LABS: Anion Gap 2 mmol/L (8-16); Blood Urea Nitrogen 18 mg/dL (9-20); Carbon Dioxide 29 mmol/L (22-30); Chloride 102 mmol/L (98-107); Estimated Glomerular Filt Rate > 60; Glucose 160 mg/dL (65-110); Potassium 4.1 mmol/L (3.4-5.0); Sodium 133 mmol/L (137-145)
[2022-01-05 06:37] VITALS: BP 126/72; PULSE 87; RESP 14; TEMP 37.4; O2SAT 98
[2022-01-05 08:24] LABS: Glucose Point of Care 137 mg/dl (65-105)
[2022-01-05] MEDS: FERROUS SULFATE 324 MG TABLET PO (08:57)
[2022-01-05] MEDS: ATORVASTATIN 40 MG TABLET PO (08:57)
[2022-01-05] MEDS: ASPIRIN 81 MG ENTERIC TABLET PO (08:57)
[2022-01-05] MEDS: CLOPIDOGREL BISULFATE 75 MG TABLET PO (08:57)
[2022-01-05] MEDS: risperiDONE 1 MG TABLET 2 MG PO (08:57)
[2022-01-05] MEDS: CHOLECALCIFEROL 1,000 UNITS TABLET 1000 UNITS PO (08:57)
[2022-01-05] MEDS: ACIDOPHILUS/BULGARICUS CHEWABLE TABLET 1 TABLET PO (08:57)
[2022-01-05] MEDS: lisinopriL 5 MG TABLET PO (08:57)
[2022-01-05] MEDS: SILVER SULFADIAZINE 1% CR 400 GM JAR (*BKC) 1 APPLIC TOPICAL (08:58)
[2022-01-05] MEDS: CITALOPRAM HYDROBROMIDE 20 MG TABLET 40 MG PO (08:58)
[2022-01-05] MEDS: FAMOTIDINE 20 MG TABLET PO (08:58)
[2022-01-05 10:40] VITALS: BP 110/60; PULSE 92; RESP 16; TEMP 36.7; O2SAT 99
[2022-01-05 11:43] LABS: Glucose Point of Care 232 mg/dl (65-105)
--- NOTE | 2022-01-05 11:49 | P.DS_ITS ---
DS: Admitting Diagnosis Discharge Date 01/05/2022 Admitting Diagnosis Right hip fracture DS: Discharge Diagnosis Discharge Diagnosis (1) Decreased responsiveness: Code(s): R41.89 - Other symptoms and signs involving cognitive functions and awareness Status: Acute Assessment and Plan: 01/01 Patient poorly arousable.? 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 on presentation showed likely subacute left temporal-occipital lobe and thalamic infarctions * He was seen in consultation by Neurology * He was started on aspirin and Plavix which will be continued * Lipid panel reviewed. Continue high intensity statin * Echocardiogram revealed preserved ejection fraction, grade 1 diastolic dysfunction, mild aortic stenosis, intact interatrial septum * Carotid Doppler ultrasound with <50% stenosis of bilateral internal carotid arteries * Participated in PT/OT/ST during admission. Will continue PT/OT at SNF (3) Closed displaced fracture of right femoral neck: Code(s): S72.001A - Fracture of unspecified part of neck of right femur, initial encounter for closed fracture Status: Acute Assessment and Plan: Secondary to fall. Pelvis x-ray on presentation showed displaced right femoral neck fracture * Appreciate orthopedic surgery consultation * Patient is s/p bipolar hemiarthroplasty of the right hip performed on 12/31/[address] Phipps * Supportive care provided * Patient to be weight-bearing as tolerated with walker * Continue PT/OT at SNF (4) Fall: Code(s): W19.XXXA - Unspecified fall, initial encounter Status: Acute Assessment and Plan: Unwitnessed fall, patient found on the ground by his wheelchair as above * Implement fall precautions (5) Chronic kidney disease: Code(s): N18.9 - Chronic kidney disease, unspecified Status: Acute Assessment and Plan: Renal function remained stable (6) Diabetes: Code(s): E11.9 - Type 2 diabetes mellitus without complications Status: Acute Assessment and Plan: A1c is 8.9 * Continue home insulin regimen and oral hypoglycemics * Diabetic diet (7) Dysphagia: Code(s): R13.10 - Dysphagia, unspecified Status: Acute Assessment and Plan: Patient with history of dysphagia * Bedside swallow study completed on 12/31/21 * Continue soft/bite size diet with regular liquids based on ST recommendations * Provide assistance with meals * Aspiration precautions implemented (8) Normocytic anemia: Code(s): D64.9 - Anemia, unspecified Status: Acute Assessment and Plan: Patient with chronic anemia.? Declined H&H postoperatively, likely due to surg ical blood loss * No evidence of active bleeding * Iron panel consistent with anemia of chronic disease.? B12 and folate levels within normal limits * H&H remained stable. Repeat in 1 week as an outpatient (9) Thyroid nodule greater than or equal to 1.5 cm in diameter incidentally noted on imaging study: Code(s):
--- NOTE | 2022-01-05 11:49 | PM.DS ---
DS: Admitting Diagnosis Discharge Date 01/05/2022 Admitting Diagnosis Right hip fracture DS: Discharge Diagnosis Discharge Diagnosis (1) Decreased responsiveness: Code(s): R41.89 - Other symptoms and signs involving cognitive functions and awareness Status: Acute Assessment and Plan: 01/01 Patient poorly arousable.? Rapid response called At baseline, patient is nonverbal and poorly arousable per daughter reports Repeat stat labs unremarkable, head CT and CT abdomen/pelvis with no acute findings, EKG showed sinus rhythm Preliminary blood cultures no growth to date Patient at baseline mental status (2) CVA (cerebral vascular accident): Code(s): I63.9 - Cerebral infarction, unspecified Status: Acute Assessment and Plan: 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 on presentation showed likely subacute left temporal-occipital lobe and thalamic infarctions He was seen in consultation by Neurology He was started on aspirin and Plavix which will be continued Lipid panel reviewed. Continue high intensity statin Echocardiogram revealed preserved ejection fraction, grade 1 diastolic dysfunction, mild aortic stenosis, intact interatrial septum Carotid Doppler ultrasound with <50% stenosis of bilateral internal carotid arteries Participated in PT/OT/ST during admission. Will continue PT/OT at SNF (3) Closed displaced fracture of right femoral neck: Code(s): S72.001A - Fracture of unspecified part of neck of right femur, initial encounter for closed fracture Status: Acute Assessment and Plan: Secondary to fall. Pelvis x-ray on presentation showed displaced right femoral neck fracture Appreciate orthopedic surgery consultation Patient is s/p bipolar hemiarthroplasty of the right hip performed on 12/31/[address] Phipps Supportive care provided Patient to be weight-bearing as tolerated with walker Continue PT/OT at SNF (4) Fall: Code(s): W19.XXXA - Unspecified fall, initial encounter Status: Acute Assessment and Plan: Unwitnessed fall, patient found on the ground by his wheelchair as above Implement fall precautions (5) Chronic kidney disease: Code(s): N18.9 - Chronic kidney disease, unspecified Status: Acute Assessment and Plan: Renal function remained stable (6) Diabetes: Code(s): E11.9 - Type 2 diabetes mellitus without complications Status: Acute Assessment and Plan: A1c is 8.9 Continue home insulin regimen and oral hypoglycemics Diabetic diet (7) Dysphagia: Code(s): R13.10 - Dysphagia, unspecified Status: Acute Assessment and Plan: Patient with history of dysphagia Bedside swallow study completed on 12/31/21 Continue soft/bite size diet with regular liquids based on ST recommendations Provide assistance with meals Aspiration precautions implemented (8) Normocytic anemia: Code(s): D64.9 - Anemia, unspecified Status: Acute Assessment and Plan: Patient with chronic anemia.? Declined H&H postoperatively, likely due to surgical blood loss No evidence of active bleeding Iron panel consistent with anemia of chronic disease.? B12 and folate levels within normal limits H&H remained stable. Repeat in 1 week as an outpatient (9) Thyroid nodule greater than or equal to 1.5 cm in diameter incidentally noted on imaging study: Code(s): E04.1 - Nontoxic single thyroid nodule Status: Acute Assessment and Plan: Will benefit from outpatient thyroid ultrasound DS: Summary Hospital Course Hospital Course: Date of admission: 12/30/2021 Date of discharge: 01/05/2022 Dilshad Power is a 61 year old male with a history of CVA in 2019 resulting in aphasia and dysphagia, type 2 diabetes mellitus, CKD, hypertension who presented to the [facility] department [facility]
[2022-01-05] MEDS: INSULIN ASPART (*BKC) 100 UNITS/ML SUB-Q (12:13)
[2022-01-05 13:20] VITALS: BP 125/71; PULSE 84; RESP 14; TEMP 36.4; O2SAT 94
[2022-01-05 13:57] LABS: EDCOVIDSCREEN Negative (Negative)
[2022-01-05 16:38] LABS: Glucose Point of Care 153 mg/dl (65-105)
== END 2022-01-05 17:07 | DRG 521 ==
LOC: ANHED 18:50 → ANH2MED 19:01
PROVIDERS: Nurse Practitioner; Orthopaedic Surgery; Physician Assistant; Admitting Provider Chiropractor; Emergency Provider Emergency Medicine; PCP Pediatrics Neonatal-Perinatal Medicine; Visit Provider Internal Medicine
PROC: 0SRR01Z Replacement of Right Hip Joint, Femoral Surface with Metal Synthetic Substitute, Open Approach (ICD-10-PCS; CPT 27125; principal; 2021-12-31 16:00)
DX: S72.001A Fracture of unspecified part of neck of right femur, initial encounter for closed fracture (principal); I63.9 Cerebral infarction, unspecified; S20.412A Abrasion of left back wall of thorax, initial encounter; R29.709 NIHSS score 9; W19.XXXA Unspecified fall, initial encounter; Z99.3 Dependence on wheelchair; Z20.822 Contact with and (suspected) exposure to COVID-19; I69.320 Aphasia following cerebral infarction; I69.391 Dysphagia following cerebral infarction; R13.10 Dysphagia, unspecified; D63.8 Anemia in other chronic diseases classified elsewhere; E11.22 Type 2 diabetes mellitus with diabetic chronic kidney disease; I12.9 Hypertensive chronic kidney disease with stage 1 through stage 4 chronic kidney disease, or unspecified chronic kidney disease; N18.9 Chronic kidney disease, unspecified; E04.1 Nontoxic single thyroid nodule; R41.89 Other symptoms and signs involving cognitive functions and awareness; Z79.4 Long term (current) use of insulin; Z79.84 Long term (current) use of oral hypoglycemic drugs
CPT/HCPCS: 36415; 51701; 70450; 71045; 72125; 72128; 72170; 73502; 74177; 80048; 80053; 80061; 81001; 82607; 82728; 82746; 82948; 83036; 83540; 83550; 83605; 84484; 85014; 85018; 85025; 85027; 85610; 85730; 86850; 86900; 86901; 87040; 87426; 92610; 93005; 93306; 93308; 93880; 96361; 96375; 97110; 97162; 97166; 97530; 97535; 99285; A9270; C1713; C1776; C9803; G0378; J0171; J0690; J1100; J1815; J1885; J2270; J2405; J2704; J2710; J2795; J3010; J7030; J7120; Q9967

== ENCOUNTER 2022-05-19 10:17 | Inpatient (IN) | payer OTHER, SELFPAY ==
[2022-05-19] VITALS (24 sets, daily range): BP systolic 103–162; BP diastolic 61–85; PULSE 67–102; RESP 10–20; TEMP 36.4–38.5; O2SAT 99–100
--- NOTE | ~2022-05-19 | CT_ITS ---
EXAMINATION: CT brain wo con DATE: 05/19/2022 22:00 INDICATION: Forehead abrasion, decreased levels of responsiven . TECHNIQUE: Computed tomography (CT) of the head was performed without intravenous contrast. The mA wa s adjusted according to patient size. Iterative reconstruction technique was employed. The dose-lengt h product was 605.33 mGy-cm. COMPARISON: 01/01/2022 FINDINGS: A portion of the right frontal scalp and skull is excluded from the [id number] which limits this e xam. No acute intracranial hemorrhage or extra-axial fluid collection. No hydrocephalus, mass, or herniation. No acute ischemic infarct. Unremarkable dural venous sinus attenuation. No acute osseous abnormality. The aerated spaces are clear. Moderate atrophy and chronic white matter change. Atherosclerotic intracranial calcification. Left me dial occipital and right parietal encephalomalacia. Old left thalamic and left basal ganglia lacunar infarcts.. IMPRESSION: Limited examination as detailed above. No acute intracranial process. Reviewed, dictated and finalized at location K.
--- NOTE | ~2022-05-19 | XR_ITS ---
EXAMINATION: XR foot RT min 3V DATE: 05/19/2022 11:00 INDICATION: Soft tissue wound of the right calcaneus TECHNIQUE: Dorsoplantar, lateral, and oblique views of the right foot were obtained. COMPARISON: None. FINDINGS: There is a plantar soft tissue ulceration of the calcaneus. There is a large volume of soft tissue gas at the plantar and lateral aspect of the calcaneus. Soft tissue gas courses anteriorly in the lateral aspect of the midfoot. 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 Mild osteoarthritis is noted in multiple interphalangeal joints. Calcified atherosclerosis is noted. There is dorsal soft tissue swelling of the midfoot overlying the metatarsals. No fracture is identified. IMPRESSION: 1. Plantar soft tissue ulceration of the calcaneus with large amount of soft tissue gas projecting ne ar the calcaneus and into the lateral aspect of the midfoot. Reviewed, dictated and finalized at location A. IMPRESSION: 1. Plantar soft tissue ulceration of the calcaneus with large amount of soft ti ssue gas projecting near the calcaneus and into the lateral aspect of the midfo ot.
[2022-05-19 11:27] LABS: Basophils Absolute Auto 0.2 K/mm3 (0.0-0.1); Basophils Percent Auto 0.6 % (0.2-1.2); Eosinophils Absolute Auto 0.1 K/mm3 (0-0.3); Eosinophils Percent Auto 0.3 % (0-4.4); Hematocrit 28.5 % (42.0-52.0); Hemoglobin 8.6 g/dL (14.0-18.0); Immature Granulocyte Percent A 1.1 % (0-0.5); Lymphocytes Absolute Auto 0.88 K/mm3 (0.9-3.2); Lymphocytes Percent Auto 3.2 % (18.3-44.2); Mean Corpuscular HGB Conc 30.2 g/dl (32-36); Mean Corpuscular Hemoglobin 24.9 pg (26-34); Mean Corpuscular Volume 82.4 fl (80-100); Monocytes Absolute Auto 1.9 K/mm3 (0.1-0.6); Monocytes Percent Auto 7.1 % (2.6-8.5); Neutrophils Absolute Auto 23.9 K/mm3 (1.3-6.7); Neutrophils Percent Auto 87.7 % (45.5-73.1); Platelet Count Result 564 k/mm3 (150-375); Red Blood Count 3.46 M/mm3 (4.6-6.20); Red Cell Distribution Width 15.9 % (11.5-14.5); White Blood Count 27.3 K/mm3 (4.5-10.0)
[2022-05-19 11:30] LABS: Lactic Acid Reflex 2.4 mmol/L (0.7-2.0)
[2022-05-19 11:33] LABS: Alanine Aminotransferase 24 U/L (6-50); Albumin Level 3.6 g/dL (3.5-5.1); Alkaline Phosphatase 208 U/L (38-126); Anion Gap 12 mmol/L (8-16); Aspartate Amino Transferase 38 U/L (17-59); Bilirubin,Total 0.6 mg/dL (0.2-1.3); Blood Urea Nitrogen 34 mg/dL (9-20); Carbon Dioxide 27 mmol/L (22-30); Chloride 111 mmol/L (98-107); Estimated CRCL calculation 46 ml/min; Estimated Glomerular Filt Rate 58; Glucose 229 mg/dL (65-110); Potassium 4.7 mmol/L (3.4-5.0); Sodium 150 mmol/L (137-145)
[2022-05-19 11:43] LABS: INR 1.4; Prothrombin Time 16.9 Seconds (11.1-14.7)
[2022-05-19 11:44] LABS: Partial Thromboplastin Time 40.1 SECONDS (22.3-36.8)
[2022-05-19] MEDS: SODIUM CHLORIDE 0.9% IV 1,000 ML 999 ML IV CONT (11:44)
[2022-05-19 11:47] LABS: Hypochromasia 2+ (NORMAL); Platelet Estimate Increased (Adequate); Schistocytes 1+ (NORMAL); Target Cells 1+ (NORMAL)
[2022-05-19 11:58] LABS: CRP 40.4 mg/dL (<1.0)
[2022-05-19] MEDS: metroNIDAZOLE 500 MG/ISO 100ML 500 MG/100 ML BAG 100 MG IVPB ×2 (12:06→22:14)
--- NOTE | 2022-05-19 12:08 | ED.GENADULT ---
HPI - General Adult General Chief complaint: Wound/Laceration Stated complaint: odorous wound Time Seen by Provider: 05/19/22 10:27 Source: RN notes reviewed History of Present Illness HPI narrative: Patient presents emergency department from [facility] via EMS for right foot wound. Patient has history of previous CVA is nonverbal at baseline does not ambulate patient had a pressure wound on his right for the progressively worse and staff noted a foul-smelling odor from the wound today. Patient is unable to give any further history patient is a diabetic Related Data Home Medications Medication Instructions Recorded Confirmed acetaminophen 500 mg tablet 500 mg PO Q4H PRN Pain 10/08/21 12/30/21 atorvastatin 40 mg tablet 40 mg PO DAILY 10/08/21 12/30/21 citalopram 40 mg tablet 40 mg PO DAILY 10/08/21 12/30/21 famotidine 20 mg tablet 20 mg PO DAILY 10/08/21 12/30/21 ferrous sulfate 325 mg (65 mg 325 mg PO DAILY 10/08/21 12/30/21 iron) tablet hydroxyzine HCl 50 mg tablet 50 mg PO HS 10/08/21 12/30/21 insulin detemir U-100 100 unit/mL 18 unit subcut HS 10/08/21 12/30/21 (3 mL) subcutaneous pen (Levemir FlexTouch U-100 Insulin) lisinopril 5 mg tablet 5 mg PO DAILY 10/08/21 12/30/21 risperidone 2 mg tablet 2 mg PO BID 10/08/21 12/30/21 Novolog U-100 Insulin aspart 7 units subcut TID 12/27/21 12/30/21 cholecalciferol (vitamin D3) 125 1 unit PO DAILY 12/27/21 12/30/21 mcg (5,000 unit) tablet glipizide 5 mg tablet 2.5 mg PO DAILY 12/27/21 12/30/21 metformin 500 mg tablet 750 mg PO BID 12/27/21 12/30/21 Lactobacillus acidophilus 75 1 cap PO DAILY 12/30/21 12/30/21 million cell-pectin 100 mg capsule (Acidophilus-Pectin) mupirocin 2 % topical ointment 1 applic topical BID 12/30/21 12/30/21 silver sulfadiazine 1 % topical 1 applic topical DAILY 12/30/21 12/30/21 cream (SSD) Allergies Allergy/AdvReac Type Severity Reaction Status Date / Time No Known Allergies Allergy Verified 12/27/21 18:56 Review of Systems Review of Systems: ROS unobtainable: Yes unobtainable due to medical condition (Nonverbal at baseline) [facility] Past Medical History Medical History Chronic kidney disease CVA (cerebral vascular accident) Diabetes Dysphagia Hypertension Family History Family History Father Acute myocardial infarction Congestive heart failure Mother Cerebrovascular accident Diabetes mellitus Grandparent Colon cancer Asthma Social History Social History Smoking status: Never smoker Alcohol intake: unknown Substance use: unknown Spiritual care concerns: No Exam Narrative: APPEARANCE: No acute distress, nontoxic, resting in bed EYES: PERRL HEENT: Normocephalic, atraumatic, oral mucosa dry RESPIRATORY: No respiratory distress Clear to auscultation bilaterally with no rhonchi wheezing or rales. CARDIOVASCULAR: Regular rate and rhythm without murmurs rubs or gallops. ABDOMINAL: Soft, nontender, nondistended, no rebound or guarding MUSCULOSKELETAl: No clubbing, cyanosis dorsalis pedis pulse 2+ bilaterally. NEURO: laying in bed with eyes closed will open eyes nonverbal right leg held in flexion contracture SKIN:: Warm, dry. Right heel with a large necrotic wound with malodorous drainage and surrounding erythema through the foot PSYCHIATRIC: Normal affect/mood, Course Course Emergency Course: Discussed with Dr. Diallo who came to the emergency department to evaluate the patient we will plan on OR later today Discussed with Dr. Miguel agrees with admission Discussed with patient and family results of workup and diagnosis. Discussed need for admission. Patient and family understand and agree to current treatment plan Vital Signs Vital signs: Vital Signs Temperature 98.7 F 05/19/22 10:22 Pulse Rate 100 05/19/22 10:22 Respiratory Rat
[2022-05-19 12:21] LABS: Erythrocyte Sedimentation Rate 111 mm/hr (0-20)
--- NOTE | 2022-05-19 12:41 | PM.CNGS ---
Assessment and Plan Assessment and plan (1) Severe sepsis: Code(s): A41.9 - Sepsis, unspecified organism; R65.20 - Severe sepsis without septic shock Status: Acute Assessment and Plan: Antibiotics and fluid resuscitation have been started. Will proceed to source control as below. (2) Necrotizing soft tissue infection: Code(s): M79.89 - Other specified soft tissue disorders Status: Acute Assessment and Plan: Blackened heel and 5th metatarsal area of right foot with evidence of gas-forming organisms on plain film. White blood cell count almost 30,000. Will proceed with right above knee amputation as the foot is non-salvageable and with flexion contracture, patient would not heal a below-knee amputation. (3) CVA (cerebral vascular accident): Code(s): I63.9 - Cerebral infarction, unspecified Status: Chronic Assessment and Plan: Patient on anti thrombotic therapy with Plavix which makes bleeding risk higher. He is nonverbal with flexion contractures. (4) Insulin dependent diabetes mellitus: Status: Chronic (5) Nonverbal: Code(s): R47.01 - Aphasia Status: Acute History of Present Illness Consult details Consult date: 05/19/22 Reason for consult: other (Anaerobic were right foot infection) Requesting physician: Jama Franz DO Narrative: Patient is a 61-year-old diabetic man who has had a stroke and is nonverbal. He resides at [facility]. He has flexion contractures. He was sent to the emergency room today due to a foul smelling black and area on his right foot. Evaluation in the emergency room showed him to have a malodorous infection of the right foot with black and area and swelling of the heel and in the area of the right 5th metatarsal. While there is diffuse swelling of the foot, no crepitus is noted. However plain x-rays show multiple pockets of gas consistent with an anaerobic or gas-forming infection. [place] [address]. He does take Plavix. He is seen in consultation with plans to proceed with right above knee amputation in the operating room urgently today. Review of Systems Review of Systems: ROS unobtainable: Yes unobtainable due to medical condition PMFSH Past Medical History Medical History Chronic kidney disease CVA (cerebral vascular accident) Diabetes Dysphagia Hypertension Family History Family History Father Acute myocardial infarction Congestive heart failure Mother Cerebrovascular accident Diabetes mellitus Grandparent Colon cancer Asthma Social History Social History Smoking status: Never smoker Alcohol intake: unknown Substance use: unknown Spiritual care concerns: No Meds Home Medications and Allergies Home Medications Medication Instructions Recorded Confirmed Type acetaminophen 500 mg tablet 500 mg PO Q4H PRN Pain 10/08/21 12/30/21 History atorvastatin 40 mg tablet 40 mg PO DAILY 10/08/21 12/30/21 History citalopram 40 mg tablet 40 mg PO DAILY 10/08/21 12/30/21 History famotidine 20 mg tablet 20 mg PO DAILY 10/08/21 12/30/21 History ferrous sulfate 325 mg (65 mg 325 mg PO DAILY 10/08/21 12/30/21 History iron) tablet hydroxyzine HCl 50 mg tablet 50 mg PO HS 10/08/21 12/30/21 History insulin detemir U-100 100 unit/mL 18 unit subcut HS 10/08/21 12/30/21 History (3 mL) subcutaneous pen (Levemir FlexTouch U-100 Insulin) lisinopril 5 mg tablet 5 mg PO DAILY 10/08/21 12/30/21 History risperidone 2 mg tablet 2 mg PO BID 10/08/21 12/30/21 History Novolog U-100 Insulin aspart 7 units subcut TID 12/27/21 12/30/21 History cholecalciferol (vitamin D3) 125 1 unit PO DAILY 12/27/21 12/30/21 History mcg (5,000 unit) tablet glipizide 5 mg tablet 2.5 mg PO DAILY 12/27/21 12/30/21
--- NOTE | 2022-05-19 13:46 | WPDANESEPPF ---
Anes - Initial Pre Proc Eval Procedure: Operation Date: 05/19/22 14:30 Proposed Procedures p Right Above Knee Amputation - Alex Diallo MD Date/Time: 05/19/22 13:46 Surgeon: Alex Diallo MD Pre Op Diagnosis: odorous wound Patient Data Age: 61 Gender: M Height: 1.85 m Weight: 70.1 kg Last Vital Signs Temp 37.1 C 05/19/22 10:22 Pulse 99 05/19/22 13:42 Resp 18 05/19/22 13:42 BP 153/78 H 05/19/22 13:42 Pulse Ox 99 05/19/22 13:42 O2 Del Method Room Air 05/19/22 10:22 Allergies Allergy/AdvReac Type Severity Reaction Status Date / Time No Known Allergies Allergy Verified 12/27/21 18:56 Home Medications Medication Instructions Recorded Confirmed Type acetaminophen 500 mg tablet 500 mg PO Q4H PRN Pain 10/08/21 12/30/21 History atorvastatin 40 mg tablet 40 mg PO DAILY 10/08/21 12/30/21 History citalopram 40 mg tablet 40 mg PO DAILY 10/08/21 12/30/21 History famotidine 20 mg tablet 20 mg PO DAILY 10/08/21 12/30/21 History ferrous sulfate 325 mg (65 mg 325 mg PO DAILY 10/08/21 12/30/21 History iron) tablet hydroxyzine HCl 50 mg tablet 50 mg PO HS 10/08/21 12/30/21 History insulin detemir U-100 100 unit/mL 18 unit subcut HS 10/08/21 12/30/21 History (3 mL) subcutaneous pen (Levemir FlexTouch U-100 Insulin) lisinopril 5 mg tablet 5 mg PO DAILY 10/08/21 12/30/21 History risperidone 2 mg tablet 2 mg PO BID 10/08/21 12/30/21 History Novolog U-100 Insulin aspart 7 units subcut TID 12/27/21 12/30/21 History cholecalciferol (vitamin D3) 125 1 unit PO DAILY 12/27/21 12/30/21 History mcg (5,000 unit) tablet glipizide 5 mg tablet 2.5 mg PO DAILY 12/27/21 12/30/21 History metformin 500 mg tablet 750 mg PO BID 12/27/21 12/30/21 History ondansetron 4 mg disintegrating 4 mg PO Q8H PRN nausea and 12/28/21 12/30/21 Rx tablet vomiting #14 tabs Lactobacillus acidophilus 75 1 cap PO DAILY 12/30/21 12/30/21 History million cell-pectin 100 mg capsule (Acidophilus-Pectin) mupirocin 2 % topical ointment 1 applic topical BID 12/30/21 12/30/21 History silver sulfadiazine 1 % topical 1 applic topical DAILY 12/30/21 12/30/21 History cream (SSD) aspirin 81 mg tablet,delayed 81 mg PO QAM #30 tabs 01/05/22 Rx release clopidogrel 75 mg tablet 75 mg PO QAM #30 tabs 01/05/22 Rx Laboratory Tests 05/19/22 05/19/22 05/19/22 11:09 11:09 11:09 WBC 27.3 K/mm3 H K/mm3 (4.5-10.0) RBC 3.46 M/mm3 L M/mm3 (4.6-6.20) Hgb 8.6 g/dL L g/dL (14.0-18.0) Hct 28.5 % L % (42.0-52.0) MCV 82.4 fl fl (80-100) MCH 24.9 pg L pg (26-34) MCHC 30.2 g/dl L g/dl (32-36) RDW 15.9 % H % (11.5-14.5) Plt Count 564 k/mm3 H k/mm3 (150-375) MPV 9.0 fl fl (7.4-10.4) Immature Gran % (Auto) 1.1 % H % (0-0.5) Neut % (Auto) 87.7 % H % (45.5-73.1) Lymph % (Auto) 3.2 % L % (18.3-44.2) Bill[place] % (Auto) 7.1 % % (2.6-8.5) Eos % (Auto) 0.3 % % (0-4.4) Baso % (Auto) 0.6 % % (0.2-1.2) Lymph # (Auto) 0.88 K/mm3 L K/mm3 (0.9-3.2) Bill[place] # (Auto) 1.9 K/mm3 H K/mm3 (0.1-0.6) Eos # (Auto) 0.1 K/mm3 K/mm3 (0-0.3) Baso # (Auto) 0.2 K/mm3 H K/mm3 (0.0-0.1) Abs Immat Gran (auto) 0.30 K/mm3 H K/mm3 (0.00-0.031) Absolute Neuts (auto) 23.9 K/mm3 H K/mm3 (1.3-6.7) Absolute Nucleated RBC 0.0 K/mm3 K/mm3 (0.0-0.012) Nucleated RBC % 0.0 % % (0.0-0.2) Platelet Estimate Increased (Adequate) Hypochromasia 2+ (NORMAL) Target Cells 1+ (NORMAL) Schistocytes 1+ (NORMAL) ESR 111 mm/hr H mm/hr (0-20) PT 16.9 Seconds H Seconds (11.1-14.7) INR 1.4 APTT 40.1 SECONDS H SECONDS (22.3-36.8) Sodium 150 mmol/L H mmol/L (137-145) Potassium 4.7 mmol/L mmol/L
[2022-05-19] MEDS: LACTATED RINGERS 1,000 ML 30 ML IV CONT ×2 (13:54→17:06)
--- NOTE | 2022-05-19 14:04 | WPDHPUPDATE1 ---
History and Physical Update Update Date/Time: 05/19/22 14:04 History and Physical has been reviewed, including an updated exam of the patient. There are NO changes in the patient's condition. Risks, benefits, and alternatives have been discussed and questions answered. Patient agrees to proceed with procedure.
[2022-05-19 14:17] LABS: Reflex Lactic Acid Yes or No Add Lactic
--- NOTE | 2022-05-19 16:15 | PM.IMHP ---
H&P: HPI History of Present Illness Date/Time: 05/19/22 16:15 Chief Complaint: Right foot wound. Narrative: This is an unfortunate 61-year-old male with history of stroke which has left him nonverbal, coronary artery disease, endocarditis, hypertension, type 2 diabetes, anemia, and other comorbidities who presented to the emergency department via EMS from [facility] for evaluation of a malodorous, nonhealing right foot wound. Plain x-rays of the foot showed multiple pockets of gas and recommendations were to proceed with right above the knee amputation urgently per Dr. Diallo. I evaluated the patient in the PACU following a right [id number] amputation which was performed without complication. He is still waking from anesthesia and is unable to provide history but again he is nonverbal. He is febrile at this time with a temperature of 101.3?, blood pressure is stable in the low 100s systolic. He will be admitted to the IMU for close monitoring and he has been started on broad-spectrum antibiotics. Review of Systems Review of Systems: Unable to obtain as she is nonverbal. [facility] Past Medical History Medical History (Updated 05/19/22 @ 21:26 by Melina Kirkland PA-C) Cerebrovascular accident (2018) He was left nonverbal with dysphagia and interactions, unable to walk. Chronic anemia Chronic kidney disease Closed displaced fracture of right femoral neck Coronary artery disease Depression with anxiety Dysphagia Heart failure with preserved ejection fraction Hypertension Insulin dependent diabetes mellitus Myocardial infarction Surgical History Surgical History (Updated 05/19/22 @ 21:21 by Melina Kirkland PA-C) History of cardiac catheterization History of coronary artery stent placement History of open heart surgery History of open reduction and internal fixation (ORIF) procedure Repair of right hip fracture. Family History Family History Father Acute myocardial infarction Congestive heart failure Mother Cerebrovascular accident Diabetes mellitus Grandparent Colon cancer Asthma Social History Social History (Updated 05/19/22 @ 21:22 by Melina Kirkland PA-C) Social History: Resident of [facility]. No alcohol, tobacco, or drug use. Surrogate decision maker: Esperanza Dos Santos, daughter. Code status: Full code. Spiritual care concerns: No Meds Home Medications and Allergies Home Medications Medication Instructions Recorded Confirmed Type acetaminophen 500 mg tablet 500 mg PO Q4H PRN Pain 10/08/21 12/30/21 History atorvastatin 40 mg tablet 40 mg PO DAILY 10/08/21 12/30/21 History citalopram 40 mg tablet 40 mg PO DAILY 10/08/21 12/30/21 History famotidine 20 mg tablet 20 mg PO DAILY 10/08/21 12/30/21 History ferrous sulfate 325 mg (65 mg 325 mg PO DAILY 10/08/21 12/30/21 History iron) tablet hydroxyzine HCl 50 mg tablet 50 mg PO HS 10/08/21 12/30/21 History insulin detemir U-100 100 unit/mL 18 unit subcut HS 10/08/21 12/30/21 History (3 mL) subcutaneous pen (Levemir FlexTouch U-100 Insulin) lisinopril 5 mg tablet 5 mg PO DAILY 10/08/21 12/30/21 History risperidone 2 mg tablet 2 mg PO BID 10/08/21 12/30/21 History Novolog U-100 Insulin aspart 7 units subcut TID 12/27/21 12/30/21 History cholecalciferol (vitamin D3) 125 1 unit PO DAILY 12/27/21 12/30/21 History mcg (5,000 unit) tablet glipizide 5 mg tablet 2.5 mg PO DAILY 12/27/21 12/30/21 History metformin 500 mg tablet 750 mg PO BID 12/27/21 12/30/21 History ondansetron 4 mg disintegrating 4 mg PO Q8H PRN nausea and 12/28/21 12/30/21 Rx tablet vomiting #14 tabs Lactobacillus acidophilus 75 1 cap PO DAILY 12/30/21 12/30/21 History million cell-pectin 100 mg capsule (Acidophilus-Pectin) mupirocin 2 % topical ointment 1 applic topical BID 12/30/21 12/30/21 History silver sulfadiazine 1 % topical 1 applic topical DAILY 12/30/21 05
--- NOTE | 2022-05-19 16:24 | P.OP_ITS ---
Procedure Note - Detailed Date of Procedure 05/19/22 Pre-op Diagnosis Necrotizing soft tissue infection right leg, sepsis Post-op Diagnosis Same Procedure Performed Right above knee amputation Surgeon Alex Diallo MD Social Media Director Reagan RODRIGUEZ, [employer] [place] Anesthesia General Indications Patient is a nonverbal 61-year-old man with flexion contractures and a gas- forming anaerobic infection of the right foot. He shows signs of sepsis and is taken to surgery now for right above knee amputation. Findings No evidence of infection and good vascularity noted in the tissues of the distal thigh. Description of Procedure Patient was taken to surgery and placed in a supine position. General anesthesia was introduced. Right leg was prepped and draped. The proposed fishmouth incision was drawn on the distal right thigh. Incision was made over the lines previously drawn. We then further did dissection using the cautery. Cautery was used for hemostasis. After dissecting completely through the subcutaneous we continued our dissection down to the distal femur. We dissected around the femur. I then continued the dissection through the muscle layers on either side of the femur. On the medial side of the femur, the popliteal vein and artery were encountered. We dissected each of these out separately. The popliteal vein was doubly clamped and divided. Each end was ligated with 2-0 silk. The popliteal artery was also dissected and doubly clamped. It was divided. It obviously had a lot of atherosclerotic disease. Each end was also ligated with a 2-0 silk. From there we continued our dissection medial and laterally and dissected around the distal femur. A periosteal elevator was used and we divided the periosteum up proximally until we had exposed the femur as proximal as possible considering the muscular surrounding tissues. I then used an oscillating pneumatic saw and divided the distal femur. The posterior remaining musculature was then divided using the cautery. The leg was then passed off as a specimen. We attended to any bleeding primarily in the posterior thigh musculature. Cautery was affective and hemostasis was achieved. The a then closed the superficial fascia from the posterior flap to the anterior flap with interrupted 2-0 Vicryl suture. When this was closed completely, we then used vertical mattress sutures of 2-0 nylon to close the skin. The wound was dressed with Xeroform gauze, fluffs, Kerlix roll and then 4 in Chente wraps. The stump was kept elevated and the patient was then awakened and taken to recovery in good condition. Sponge and needle counts were correct x2. Estimated Blood Loss -50 Drains No Packing No Pathology Yes (Right leg) Complications No immediate complications Condition Stable Disposition PACU [facility] Billing Surgery - Charge Forward: Surgery Billing (Right above knee amputation)
[2022-05-19 16:36] LABS: Glucose Point of Care 197 mg/dl (65-105)
[2022-05-19] MEDS: NALOXONE HCL 0.4 MG/ML VIAL IV PUSH (17:55)
--- NOTE | 2022-05-19 18:12 | SUR.PHASEI ---
1810: Simple mask removed.
--- NOTE | 2022-05-19 18:53 | SUR.PHASEI ---
Covid swab is pending for room placement. Patient is stable in recovery.
[2022-05-19 19:15] LABS: SARS-CoV-2 RNA PCR Negative
--- NOTE | 2022-05-19 20:03 | ADMGEN ---
This patient, Dilshad Power, was admitted to IMU Room 206-01. Patient/family oriented to hospital policies and general routines including ID bracelet, bed and alarms, visiting hours, pain management, procedures, bathroom and other care routines, personal items, smoking policy, room service/diet, and visiting hours. Information on how to activate the Rapid Response Team has been discussed. Patient/Family are encouraged to report perceived risks to care and to ask questions if they do not understand what they are told or what they should do.
[2022-05-19 20:55] LABS: Lactic Acid 0.7 mmol/L (0.7-2.0)
[2022-05-19] MEDS: LACTATED RINGERS 1,000 ML 100 ML IV CONT (22:14)
[2022-05-19 22:31] LABS: Hematocrit 22.2 % (42.0-52.0)
[2022-05-19 22:33] LABS: Hemoglobin 6.7 g/dL (14.0-18.0)
[2022-05-19 22:46] LABS: Anion Gap 10 mmol/L (8-16); Blood Urea Nitrogen 29 mg/dL (9-20); Calcium 7.9 mg/dL (8.4-10.2); Carbon Dioxide 25 mmol/L (22-30); Chloride 111 mmol/L (98-107); Estimated CRCL calculation 53 ml/min; Estimated Glomerular Filt Rate > 60; Glucose 197 mg/dL (65-110); Magnesium 2.2 mg/dL (1.6-2.3); Potassium 4.1 mmol/L (3.4-5.0); Sodium 146 mmol/L (137-145)
[2022-05-19 22:49] LABS: Hemoglobin A1C 7.3 % (<5.7)
[2022-05-20] VITALS (22 sets, daily range): BP systolic 142–170; BP diastolic 68–77; PULSE 68–99; RESP 12–26; TEMP 36.2–36.9; O2SAT 97–100
[2022-05-20] MEDS: SODIUM CHLORIDE 0.9% IV 250 ML 30 ML IV CONT (00:52)
[2022-05-20] MEDS: TUBING, BLOOD PLUM PUMP TUBING 1 EACH XX ×2 (00:52→04:39)
[2022-05-20] MEDS: FUROSEMIDE INJ 40 MG/4 ML VIAL 10 MG IV PUSH ×2 (04:39→07:45)
[2022-05-20] MEDS: metroNIDAZOLE 500 MG/ISO 100ML 500 MG/100 ML BAG 100 MG IVPB ×3 (04:43→22:42)
[2022-05-20 07:26] LABS: Glucose Point of Care 255 mg/dl (65-105)
[2022-05-20] MEDS: INSULIN ASPART (*BKC) 100 UNITS/ML SUB-Q ×3 (08:20→17:39)
[2022-05-20] MEDS: ENOXAPARIN 40 MG/0.4 ML SYRINGE SUB-Q (08:20)
[2022-05-20 08:29] LABS: Basophils Absolute Auto 0.1 K/mm3 (0.0-0.1); Basophils Percent Auto 0.5 % (0.2-1.2); Eosinophils Absolute Auto 0.2 K/mm3 (0-0.3); Eosinophils Percent Auto 1.1 % (0-4.4); Hematocrit 29.6 % (42.0-52.0); Hemoglobin 9.5 g/dL (14.0-18.0); Immature Granulocyte Absolute 0.19 K/mm3 (0.00-0.031); Lymphocytes Absolute Auto 0.97 K/mm3 (0.9-3.2); Lymphocytes Percent Auto 5.2 % (18.3-44.2); Mean Corpuscular HGB Conc 32.1 g/dl (32-36); Mean Corpuscular Hemoglobin 25.9 pg (26-34); Mean Corpuscular Volume 80.7 fl (80-100); Monocytes Absolute Auto 1.2 K/mm3 (0.1-0.6); Monocytes Percent Auto 6.2 % (2.6-8.5); Platelet Count Result 491 k/mm3 (150-375); Red Blood Count 3.67 M/mm3 (4.6-6.20); Red Cell Distribution Width 17.2 % (11.5-14.5); White Blood Count 18.6 K/mm3 (4.5-10.0)
[2022-05-20 08:34] LABS: Alanine Aminotransferase 17 U/L (6-50); Albumin Level 3.1 g/dL (3.5-5.1); Alkaline Phosphatase 158 U/L (38-126); Anion Gap 14 mmol/L (8-16); Aspartate Amino Transferase 30 U/L (17-59); Bilirubin,Total 0.7 mg/dL (0.2-1.3); Blood Urea Nitrogen 27 mg/dL (9-20); Calcium 8.1 mg/dL (8.4-10.2); Carbon Dioxide 23 mmol/L (22-30); Chloride 108 mmol/L (98-107); Estimated CRCL calculation 57 ml/min; Estimated Glomerular Filt Rate > 60; Glucose 247 mg/dL (65-110); Potassium 4.1 mmol/L (3.4-5.0); Sodium 145 mmol/L (137-145)
--- NOTE | 2022-05-20 11:06 | PM.IMPN ---
Progress Note: A&P Assessment and Plan (1) Severe sepsis: Code(s): A41.9 - Sepsis, unspecified organism; R65.20 - Severe sepsis without septic shock Status: Acute Assessment and Plan: present on admission (2) Necrotizing soft tissue infection: Code(s): M79.89 - Other specified soft tissue disorders Status: Acute Assessment and Plan: Status post right pibvt-gdh-gxql amputation per Dr. Diallo. Continue broad-spectrum antibiotics including cefepime, metronidazole, vancomycin. (3) Diabetic infection of right foot: Code(s): E11.628 - Type 2 diabetes mellitus with other skin complications; L08.9 - Local infection of the skin and subcutaneous tissue, unspecified Status: Acute Assessment and Plan: Status post right avcrf-xei-oxzm amputation. He has a large unstageable pressure ulcer on the left heel and wound nurse has been consulted. (4) Acute kidney injury: Code(s): N17.9 - Acute kidney failure, unspecified Status: Acute Assessment and Plan: Secondary to a combination of sepsis and dehydration. He is on lisinopril as well. Avoid nephrotoxic agents. Monitor strict I/O. monitor electrolytes and kidney function. (5) Insulin dependent diabetes mellitus: Status: Chronic Assessment and Plan: Continue basal insulin. Initiate sliding scale insulin, Accu-Cheks, and hypoglycemic protocol. (6) Hypernatremia: Code(s): E87.0 - Hyperosmolality and hypernatremia Status: Acute Assessment and Plan: Continue cautious IV fluid rehydration with close monitoring of volume status and sodium levels. improved (7) Chronic anemia: Code(s): D64.9 - Anemia, unspecified Status: Acute Assessment and Plan: Stable on review of previous labs. Monitor (8) Heart failure with preserved ejection fraction: Code(s): I50.30 - Unspecified diastolic (congestive) heart failure Status: Acute Assessment and Plan: Clinically compensated. Avoid over-hydration. (9) Hypertension: Code(s): I10 - Essential (primary) hypertension Status: Acute Assessment and Plan: Blood pressures were reviewed and they have been stable at the low end of normal. Hold antihypertensives and monitor. Subjective Date/time seen: 05/20/22 11:06 no acute issues overnight Exam Narrative: General: Acutely ill-appearing gentleman supine in bed. Weight: 70.1 kilograms. BMI: 20.4. HEENT: Abrasion on the mid forehead. Pupils are reactive. Sclerae anicteric. Conjunctiva mildly injected. Tacky mucous membranes. Neck: Supple. Respiratory: Respirations are nonlabored. Cardiovascular: Regular rate and rhythm with S1-S2. 3/6 systolic murmur at the upper sternal border. Gastrointestinal: Abdomen is soft, flat, nontender, and nondistended with positive bowel sounds. Skin: Hot and sweaty. Status post right bbknb-shr-tvcx amputation. There is an unstageable wound on the left heel, boggy to touch over the entire wound and the periphery. Extremities: No cyanosis, clubbing, or left lower extremity edema. Radial pulses palpable. Left pedal pulses diminished. Neurological: Still somnolent following surgery. Contracted. Psychiatric: Somnolent in PACU, waking from anesthesia. Objective Data Vital Signs Vital Signs: Vital Signs - 24 hr 05/19/22 11:39 05/19/22 13:42 05/19/22 13:36 Temperature 99.8 F H Pulse Rate 95 99 102 H Respiratory Rate 18 18 20 Blood Pressure 162/81 H 153/78 H 145/72 H Pulse Oximetry 100 99 100 Oxygen Delivery Room Air Oxygen Flow Rate 05/19/22 16:07 05/19/22 16:20 05/19/22 16:35 Temperature 101.3 F H Pulse Rate 77 73 71 Respiratory Rate 10 L 14 12 Blood Pressure 106/62 106/61 104/61 Pulse Oximetry 100 100 100 Oxygen Delivery Simple Face Mask Simple Face Mask Simple Face Mask Oxygen Flow Rate 6 6 6 05/19/22 16:50 05/19/22 17:05 05/19/22 17:20 Temperature Pulse
[2022-05-20 13:14] LABS: Glucose Point of Care 233 mg/dl (65-105)
--- NOTE | 2022-05-20 14:05 | PM.PNGS ---
Progress Note: A&P Assessment and Plan (1) Necrotizing soft tissue infection: Code(s): M79.89 - Other specified soft tissue disorders Status: Acute Assessment and Plan: Source controlled after amputation performed yesterday. Blood cultures are pending. Amputation site healing very well. Will place gauze and stump sock (tubigauze) today. (2) Severe sepsis: Code(s): A41.9 - Sepsis, unspecified organism; R65.20 - Severe sepsis without septic shock Status: Acute Assessment and Plan: Improved (3) Insulin dependent diabetes mellitus: Status: Chronic (4) CVA (cerebral vascular accident): Code(s): I63.9 - Cerebral infarction, unspecified Status: Chronic Assessment and Plan: Nonverbal, flexion contractures. Subjective Subjective Date/Time Seen: 05/20/22 14:05 Post Op day: 1 Patient reports: other (Patient nonverbal) Review of Systems Review of Systems: ROS unobtainable: Yes unobtainable due to medical condition Exam Narrative: nursing reports patient does arouse and ate full breakfast Const: General: lethargic Extrem: Right lower extremity: hip/thigh (right AK amp wound healing well; no ischemia or wound issues) Objective Data Vital Signs Vital Signs: Vital Signs - 24 hr 05/19/22 16:07 05/19/22 16:20 05/19/22 16:35 Temperature 38.5 C H Pulse Rate 77 73 71 Respiratory Rate 10 L 14 12 Blood Pressure 106/62 106/61 104/61 Pulse Oximetry 100 100 100 Oxygen Delivery Simple Face Mask Simple Face Mask Simple Face Mask Oxygen Flow Rate 6 6 6 05/19/22 16:50 05/19/22 17:05 05/19/22 17:20 Temperature Pulse Rate 71 70 71 Respiratory Rate 13 12 14 Blood Pressure 110/64 117/69 103/85 Pulse Oximetry 100 100 100 Oxygen Delivery Simple Face Mask Simple Face Mask Simple Face Mask Oxygen Flow Rate 6 6 6 05/19/22 17:35 05/19/22 17:50 05/19/22 17:58 Temperature 37.7 C H Pulse Rate 73 71 72 Respiratory Rate 14 12 16 Blood Pressure 128/67 129/69 132/73 Pulse Oximetry 100 100 Oxygen Delivery Simple Face Mask Simple Face Mask Simple Face Mask Oxygen Flow Rate 6 6 6 05/19/22 18:05 05/19/22 18:20 05/19/22 18:35 Temperature Pulse Rate 72 74 73 Respiratory Rate 14 12 12 Blood Pressure 124/80 124/67 128/69 Pulse Oximetry 100 100 100 Oxygen Delivery Simple Face Mask Room Air Room Air Oxygen Flow Rate 6 05/19/22 18:50 05/19/22 19:05 05/19/22 19:20 Temperature Pulse Rate 73 73 71 Respiratory Rate 12 14 12 Blood Pressure 129/64 129/68 129/69 Pulse Oximetry 100 100 99 Oxygen Delivery Room Air Room Air Room Air Oxygen Flow Rate 05/19/22 19:35 05/19/22 19:50 05/19/22 20:13 Temperature 36.4 C L Pulse Rate 70 70 68 Respiratory Rate 14 12 16 Blood Pressure 116/65 121/65 127/66 Pulse Oximetry 99 99 100 Oxygen Delivery Room Air Room Air Oxygen Flow Rate 05/20/22 00:25 05/20/22 00:25 05/20/22 00:25 Temperature 36.9 C 36.9 C 36.9 C Pulse Rate 71 71 71 Respiratory Rate 15 15 15 Blood Pressure 142/70 H 142/70 H 142/70 H Pulse Oximetry 100 100 Oxygen Delivery Oxygen Flow Rate 05/20/22 00:42 05/20/22 00:58 05/19/22 22:00 Temperature 36.9 C 36.8 C Pulse Rate 71 70 67 Respiratory Rate 15 14 Blood Pressure 142/70 H 144/68 H Pulse Oximetry 100 100 Oxygen Delivery Oxygen Flow Rate 05/20/22 00:00 05/19/22 20:12 05/20/22 00:00 Temperature Pulse Rate 68 70 70 Respiratory Rate 14 14 Blood Pressure Pulse Oximetry 100 100 Oxygen Delivery Room Air Room Air Oxygen Flow Rate 05/20/22 02:00 05/20/22 01:58 05/20/22 02:58 Temperature 36.2 C L 36.6 C Pulse Rate 71 72 99 Respiratory Rate 14 16 Blood Pressure 146/70 H 159/73 H Pulse Oximetry 97 100 Oxygen Delivery Oxygen Flow Rate 05/20/22 03:45 05/20/22 04:16 05/20/22 04:32 Temperature 36.6 C 36.8 C 36.6 C Pulse Rate 74 72 73 Respiratory Rate 14 16 16 Blood Pressure 161/74 H 158/73 H 164/73 H Pulse Oxime
--- NOTE | 2022-05-20 14:31 | WPDANESPN ---
Anes - Prog Note Post-Op Date/Time: 05/20/22 14:31 Cardiovascular status: normal Respiratory status: normal Airway patency: baseline Mental status: baseline Post-Op hydration status: normal Vital Signs: Last Vital Signs Temp 36.3 C L 05/20/22 08:30 Pulse 74 05/20/22 12:00 Resp 12 05/20/22 08:30 BP 170/77 H 05/20/22 08:30 Pulse Ox 99 05/20/22 08:30 O2 Del Method Room Air 05/20/22 08:00 O2 Flow Rate 6 05/19/22 18:05 Pain Score (VAS): 09/19 I/O: Intake & Output 05/19/22 05/20/22 05/20/22 23:59 07:59 15:59 Intake Total 1300 930 580 Balance 1300 930 580 Laboratory Tests 05/20/22 08:16 05/20/22 08:16 05/19/22 05/19/22 05/19/22 16:33 18:31 20:40 WBC RBC Hgb Hct MCV MCH MCHC RDW Plt Count MPV Immature Gran % (Auto) Neut % (Auto) Lymph % (Auto) [place] % (Auto) Eos % (Auto) Baso % (Auto) Lymph # (Auto) [place] # (Auto) Eos # (Auto) Baso # (Auto) Abs Immat Gran (auto) Absolute Neuts (auto) Absolute Nucleated RBC Nucleated RBC % Sodium Potassium Chloride Carbon Dioxide Anion Gap BUN Creatinine Estim Creat Clear Calc Estimated GFR Glucose POC Capillary Glucose 197 H Hemoglobin A1c Lactic Acid 0.7 Calcium Magnesium Total Bilirubin AST ALT Alkaline Phosphatase Total Protein Albumin SARS-CoV-2 RNA (RT-PCR) Negative Blood Type Antibody Screen Crossmatch 05/19/22 05/19/22 05/19/22 22:26 22:26 22:26 WBC RBC Hgb 6.7 L* Hct 22.2 L MCV MCH MCHC RDW Plt Count MPV Immature Gran % (Auto) Neut % (Auto) Lymph % (Auto) [place] % (Auto) Eos % (Auto) Baso % (Auto) Lymph # (Auto) [place] # (Auto) Eos # (Auto) Baso # (Auto) Abs Immat Gran (auto) Absolute Neuts (auto) Absolute Nucleated RBC Nucleated RBC % Sodium 146 H Potassium 4.1 Chloride 111 H Carbon Dioxide 25 Anion Gap 10 BUN 29 H Creatinine 1.30 Estim Creat Clear Calc 53 Estimated GFR > 60 Glucose 197 H POC Capillary Glucose Hemoglobin A1c 7.3 H Lactic Acid Calcium 7.9 L Magnesium 2.2 Total Bilirubin AST ALT Alkaline Phosphatase Total Protein Albumin SARS-CoV-2 RNA (RT-PCR) Blood Type Antibody Screen Crossmatch 05/19/22 05/20/22 05/20/22 23:17 07:20 08:16 WBC 18.6 H RBC 3.67 L Hgb 9.5 L Hct 29.6 L MCV 80.7 MCH 25.9 L MCHC 32.1 RDW 17.2 H Plt Count 491 H MPV 9.0 Immature Gran % (Auto) 1.0 H Neut % (Auto) 86.0 H Lymph % (Auto) 5.2 L [place] % (Auto) 6.2 Eos % (Auto) 1.1 Baso % (Auto) 0.5 Lymph # (Auto) 0.97 [place] # (Auto) 1.2 H Eos # (Auto) 0.2 Baso # (Auto) 0.1 Abs Immat Gran (auto) 0.19 H Absolute Neuts (auto) 16.0 H Absolute Nucleated RBC 0.0 Nucleated RBC % 0.0 Sodium Potassium Chloride Carbon Dioxide Anion Gap BUN Creatinine Estim Creat Clear Calc Estimated GFR Glucose POC Capillary Glucose 255 H Hemoglobin A1c Lactic Acid Calcium Magnesium Total Bilirubin AST ALT Alkaline Phosphatase Total Protein Albumin SARS-CoV-2 RNA (RT-PCR) Blood Type O Positive Antibody Screen Negative Crossmatch See Detail 05/20/22 05/20/22 08:16 13:07 WBC RBC Hgb Hct MCV MCH MCHC RDW Plt Count MPV Immature Gran % (Auto) Neut % (Auto) Lymph % (Auto) [place] % (Auto) Eos % (Auto) Baso % (Auto) Lymph # (Auto) [place] # (Auto) Eos # (Auto) Baso # (Auto) Abs Immat Gran (auto) Absolute Neuts (auto) Absolute Nucleated RBC Nucleated RBC % Sodium 145 Potassium 4.1 Chloride 108 H Carbon Dioxide 23 Anion Gap 14 BUN 27 H Creatinine 1.20 Estim Creat Clear Calc 57 Estimated GFR
[2022-05-20 17:07] LABS: Glucose Point of Care 234 mg/dl (65-105)
[2022-05-20 20:06] LABS: Glucose Point of Care 331 mg/dl (65-105)
[2022-05-20] MEDS: INSULIN ASPART (*BKC) 100 UNITS/ML 6 UNITS SUB-Q (22:42)
[2022-05-20 23:26] LABS: Glucose Point of Care 291 mg/dl (65-105)
[2022-05-21] VITALS: PULSE 72
[2022-05-21 04:00] VITALS: PULSE 79
[2022-05-21 05:03] LABS: Estimated CRCL calculation 61 ml/min; Estimated Glomerular Filt Rate > 60
[2022-05-21] MEDS: metroNIDAZOLE 500 MG/ISO 100ML 500 MG/100 ML BAG 100 MG IVPB ×3 (05:20→22:48)
[2022-05-21 08:00] VITALS: BP 171/82; PULSE 66; PULSE 71; RESP 28; TEMP 36.8; O2SAT 99
[2022-05-21 08:28] LABS: Glucose Point of Care 249 mg/dl (65-105)
[2022-05-21] MEDS: ENOXAPARIN 40 MG/0.4 ML SYRINGE SUB-Q (09:11)
[2022-05-21] MEDS: INSULIN ASPART (*BKC) 100 UNITS/ML SUB-Q ×2 (09:12→12:27)
[2022-05-21 12:00] VITALS: PULSE 72
[2022-05-21 12:10] LABS: Glucose Point of Care 255 mg/dl (65-105)
--- NOTE | 2022-05-21 12:19 | PM.IMPN ---
Progress Note: A&P Assessment and Plan (1) Severe sepsis: Code(s): A41.9 - Sepsis, unspecified organism; R65.20 - Severe sepsis without septic shock Status: Acute Assessment and Plan: Present on admission with fever and tachycardia related to necrotizing soft tissue infection. Patient is status post right eatxx-bqt-nuhf amputation. He remains on cefepime Flagyl and vancomycin. Blood culture no growth to date. Fever has resolved. White count is trending downward. Labs not checked today. (2) Necrotizing soft tissue infection: Code(s): M79.89 - Other specified soft tissue disorders Status: Acute Assessment and Plan: Patient presents with right foot wound with x-ray showing plantar soft tissue ulceration of the calcaneus with large amount of soft tissue gas projecting near the calcaneus and into the lateral aspect of the midfoot. Patient was seen by General surgery and is now status post right qkxkq-qxo-ancg amputation per Dr. Diallo performed on 05/19/22. Continue broad-spectrum antibiotics. Follow BCx. (3) Diabetic infection of right foot: Code(s): E11.628 - Type 2 diabetes mellitus with other skin complications; L08.9 - Local infection of the skin and subcutaneous tissue, unspecified Status: Acute Assessment and Plan: Status post right uyojh-oju-kvtv amputation. He also has a large unstageable pressure ulcer on the left heel present on admission. Wound care nurse has been consulted. (4) Chronic anemia: Code(s): D64.9 - Anemia, unspecified Status: Acute Assessment and Plan: Hgb chronically low in the 7-8 range. Hgb 8.6 on admission but dropped to 6.7. He received 2U PRBC with Hgb better at 9.5 yesterday. Repeat labs today to ensure stability. (5) Acute kidney injury: Code(s): N17.9 - Acute kidney failure, unspecified Status: Acute Assessment and Plan: Cr 1.5 on admission felt to be NANCY related to the sepsis picture and dehydration. He was on lisinopril as well. Cr back to baseline. Avoid nephrotoxic agents. (6) Insulin dependent diabetes mellitus: Status: Chronic Assessment and Plan: A1c 7.3. The patient's blood glucose was reviewed on 05/21 Glucose remains poorly controlled. Continue AccuCheks covering with sliding scale. Hypoglycemia protocol available as needed. Resume home meds. (7) Hypernatremia: Code(s): E87.0 - Hyperosmolality and hypernatremia Status: Acute Assessment and Plan: Na 150 on admission related to dehydration. His Na has improved with appropriate treatment and was normal yesterday. Continue to monitor. (8) Heart failure with preserved ejection fraction: Code(s): I50.30 - Unspecified diastolic (congestive) heart failure Status: Acute Assessment and Plan: Clinically compensated. Avoid over-hydration. (9) Hypertension: Code(s): I10 - Essential (primary) hypertension Status: Acute Assessment and Plan: Patient's blood pressure was reviewed on 05/21 Blood pressure remains elevated Not on home antiHTN medications. Add Valsartan. Plan DVT prophylaxis: Lovenox Code status: Full Diet: Diabetic with minced and moist level 5 Subjective Date/time seen: 05/21/22 12:19 Interval history: 61yo male with hx of CVA and is nonverbal here for right foot wound and now s/p Right AKA. Patient is alert but nonverbal. No issues overnight per staff Review of Systems Review of Systems: ROS unobtainable: Yes unobtainable due to mental status Exam Narrative: AF 98.2 171/82 66 28 99% ra Gen - NARD lying semi-recumbent in bed Chest -lungs clear anteriorly. CV - RRR S1/S2. Tele shows a brief run of atrial tachycardia. Abd - Soft, NT/ND, Positive BS Ext -right above-knee amputation. No left lower extremity edema. Neuro - Alert. Nonverbal Skin - Warm and dry. Left heel dressing in place. Objective
[2022-05-21 12:51] LABS: Basophils Absolute Auto 0.1 K/mm3 (0.0-0.1); Basophils Percent Auto 0.4 % (0.2-1.2); Eosinophils Absolute Auto 0.4 K/mm3 (0-0.3); Eosinophils Percent Auto 2.8 % (0-4.4); Hematocrit 30.7 % (42.0-52.0); Hemoglobin 9.4 g/dL (14.0-18.0); Immature Granulocyte Percent A 1.9 % (0-0.5); Lymphocytes Absolute Auto 1.37 K/mm3 (0.9-3.2); Lymphocytes Percent Auto 8.8 % (18.3-44.2); Mean Corpuscular HGB Conc 30.6 g/dl (32-36); Mean Corpuscular Hemoglobin 25.5 pg (26-34); Mean Corpuscular Volume 83.4 fl (80-100); Mean Platelet Volume 9.5 fl (7.4-10.4); Monocytes Absolute Auto 1.2 K/mm3 (0.1-0.6); Monocytes Percent Auto 7.4 % (2.6-8.5); Neutrophils Absolute Auto 12.3 K/mm3 (1.3-6.7); Neutrophils Percent Auto 78.7 % (45.5-73.1); Platelet Count Result 532 k/mm3 (150-375); Red Blood Count 3.68 M/mm3 (4.6-6.20); Red Cell Distribution Width 17.6 % (11.5-14.5); White Blood Count 15.6 K/mm3 (4.5-10.0)
[2022-05-21 13:00] LABS: Anion Gap 9 mmol/L (8-16); Blood Urea Nitrogen 27 mg/dL (9-20); Calcium 8.3 mg/dL (8.4-10.2); Carbon Dioxide 26 mmol/L (22-30); Chloride 108 mmol/L (98-107); Estimated CRCL calculation 61 ml/min; Estimated Glomerular Filt Rate > 60; Glucose 258 mg/dL (65-110); Potassium 3.9 mmol/L (3.4-5.0); Sodium 143 mmol/L (137-145)
[2022-05-21] MEDS: VALSARTAN 20 MG TABLET PO (14:04)
[2022-05-21] MEDS: CITALOPRAM HYDROBROMIDE 10 MG TABLET 30 MG PO (14:05)
[2022-05-21] MEDS: risperiDONE 0.5 MG TABLET 1.5 MG PO (14:05)
[2022-05-21 16:00] VITALS: BP 138/76; PULSE 63; RESP 24; TEMP 36.9; O2SAT 100
[2022-05-21 16:56] LABS: Glucose Point of Care 149 mg/dl (65-105)
--- NOTE | 2022-05-21 17:25 | PC.NURSE ---
This patient, Dilshad Power, was transferred to [[id number] ] on 05/21/22 at 1725. Personal belongings sent with patient. Report given to [MIRA Epps @ [phone] ]. Appropriate documentation sent with patient.
[2022-05-21] MEDS: INSULIN ASPART (*BKC) 100 UNITS/ML 7 UNITS SUB-Q (17:59)
[2022-05-21 19:20] LABS: Vancomycin Trough 7.6 ug/mL (10.0-20.0)
[2022-05-21 20:55] LABS: Glucose Point of Care 127 mg/dl (65-105)
[2022-05-21 21:55] VITALS: BP 134/82; PULSE 70; RESP 18; TEMP 36.4; O2SAT 97
[2022-05-21] MEDS: hydrOXYzine HCL 25 MG TABLET PO (22:48)
[2022-05-21] MEDS: risperiDONE 1 MG TABLET 2 MG PO (22:48)
[2022-05-22] MEDS: metroNIDAZOLE 500 MG/ISO 100ML 500 MG/100 ML BAG 100 MG IVPB ×2 (05:18→14:04)
[2022-05-22 06:00] VITALS: BP 129/67; PULSE 67; RESP 16; TEMP 36.2; O2SAT 96
[2022-05-22 06:44] LABS: Basophils Absolute Auto 0.1 K/mm3 (0.0-0.1); Basophils Percent Auto 0.6 % (0.2-1.2); Eosinophils Absolute Auto 0.6 K/mm3 (0-0.3); Eosinophils Percent Auto 4.4 % (0-4.4); Hematocrit 29.6 % (42.0-52.0); Hemoglobin 9.4 g/dL (14.0-18.0); Immature Granulocyte Absolute 0.58 K/mm3 (0.00-0.031); Immature Granulocyte Percent A 4.5 % (0-0.5); Mean Corpuscular HGB Conc 31.8 g/dl (32-36); Mean Corpuscular Hemoglobin 25.5 pg (26-34); Mean Corpuscular Volume 80.4 fl (80-100); Mean Platelet Volume 9.2 fl (7.4-10.4); Monocytes Absolute Auto 0.9 K/mm3 (0.1-0.6); Monocytes Percent Auto 7.2 % (2.6-8.5); Neutrophils Absolute Auto 9.5 K/mm3 (1.3-6.7); Neutrophils Percent Auto 73.3 % (45.5-73.1); Platelet Count Result 521 k/mm3 (150-375); Red Blood Count 3.68 M/mm3 (4.6-6.20); Red Cell Distribution Width 17.7 % (11.5-14.5)
[2022-05-22 07:02] LABS: Albumin Level 2.6 g/dL (3.5-5.1); Anion Gap 9 mmol/L (8-16); Blood Urea Nitrogen 19 mg/dL (9-20); Calcium 7.7 mg/dL (8.4-10.2); Carbon Dioxide 26 mmol/L (22-30); Chloride 101 mmol/L (98-107); Estimated CRCL calculation 67 ml/min; Estimated Glomerular Filt Rate > 60; Glucose 145 mg/dL (65-110); Magnesium 1.7 mg/dL (1.6-2.3); Phosphorus 3.3 mg/dL (2.5-4.5); Potassium 3.8 mmol/L (3.4-5.0); Sodium 136 mmol/L (137-145)
[2022-05-22 08:00] LABS: Glucose Point of Care 145 mg/dl (65-105)
[2022-05-22] MEDS: CITALOPRAM HYDROBROMIDE 10 MG TABLET 30 MG PO (08:15)
[2022-05-22] MEDS: FAMOTIDINE 20 MG TABLET PO (08:15)
[2022-05-22] MEDS: ENOXAPARIN 40 MG/0.4 ML SYRINGE SUB-Q (08:15)
[2022-05-22] MEDS: CHOLECALCIFEROL 1,000 UNITS TABLET 1000 UNITS PO (08:15)
[2022-05-22] MEDS: FERROUS SULFATE 324 MG TABLET PO (08:15)
[2022-05-22] MEDS: risperiDONE 0.5 MG TABLET 1.5 MG PO (08:16)
[2022-05-22] MEDS: INSULIN ASPART (*BKC) 100 UNITS/ML 7 UNITS SUB-Q ×3 (08:22→17:12)
[2022-05-22 11:47] LABS: Glucose Point of Care 201 mg/dl (65-105)
[2022-05-22] MEDS: VALSARTAN 20 MG TABLET PO (11:52)
[2022-05-22] MEDS: INSULIN ASPART (*BKC) 100 UNITS/ML SUB-Q (11:55)
--- NOTE | 2022-05-22 13:44 | PM.PNGS ---
Progress Note: A&P Assessment and Plan (1) Necrotizing soft tissue infection: Code(s): M79.89 - Other specified soft tissue disorders Status: Acute Assessment and Plan: Amputation continues to heal well. Incision looks good again today. Okay from our standpoint for the patient to be discharged back to the [facility] when okay with the primary service. Will set him up for a follow-up with Dr. Diallo in the wound clinic in 2 weeks. (2) Severe sepsis: Code(s): A41.9 - Sepsis, unspecified organism; R65.20 - Severe sepsis without septic shock Status: Acute Assessment and Plan: Improved. Source controlled s/p amputation. Blood cx NGTD. (3) Insulin dependent diabetes mellitus: Status: Chronic (4) CVA (cerebral vascular accident): Code(s): I63.9 - Cerebral infarction, unspecified Status: Chronic Assessment and Plan: Nonverbal, flexion contractures. (5) Open wound of left heel: Code(s): S91.302A - Unspecified open wound, left foot, initial encounter Status: Acute Assessment and Plan: Small left heel ulcer that appears stable. We did a bedside excisional debridement today to clean it up for maintenance. Will start silver gel dressing changes with Mepilex border today. Recommend to continue the silver gel on discharge. Continue waffle boot. Plan I have discussed the patient's case and plan of care with Dr. Gardner. Subjective Subjective Date/Time Seen: 05/22/22 13:44 Patient reports: afebrile and other (patient nonverbal) Interval history: Patient seen with Dr. Gardner. Review of Systems Review of Systems: ROS unobtainable: Yes unobtainable due to mental status Exam Const: General: comfortable, no acute distress and awake Limitations: language barrier (nonverbal) Skin: Other: Left heel wound assessed and there was a small amount of dark bojorquez/brown loose necrotic tissue in the wound bed and I used sterile scissors and pickups to debride this area of 1 x 1 cm leaving an open wound bed, no purulent drainage, wound bed now appears pink Extrem: Left lower extremity: no edema Other: Right stump dressing removed. Incision dry with edges well approximated, no erythema. New dressing and stump sock applied. Objective Data Vital Signs Vital Signs: Vital Signs - 24 hr 05/21/22 16:00 05/21/22 21:55 05/21/22 21:30 Temperature 98.4 F 97.5 F L Pulse Rate 63 70 Respiratory Rate 24 H 18 Blood Pressure 138/76 134/82 Pulse Oximetry 100 97 Oxygen Delivery Room Air 05/22/22 06:00 05/22/22 08:00 Temperature 97.2 F L Pulse Rate 67 Respiratory Rate 16 Blood Pressure 129/67 Pulse Oximetry 96 Oxygen Delivery Room Air Intake/Output Intake/Output: Intake & Output 05/19/22 05/20/22 05/21/22 05/22/22 23:59 23:59 23:59 23:59 Intake Total 2700 1860 3240 650 Balance 2700 1860 3240 650 Meds/Results Medications: Active Medications Generic Name Dose Route Start Last Admin Trade Name Freq PRN Reason Stop Dose Admin Acetaminophen 500 mg 05/19/22 19:56 Acetaminophen 500 Mg Tablet PO Q6H PRN Mild Pain (1-3) or Fever Atropine Sulfate 2 drop 05/21/22 12:33 Atropine Sulfate 1% Ophth Soln 5 Ml Bottle SUBLINGUAL Q4H PRN Secretions Bisacodyl 10 mg 05/21/22 12:33 Bisacodyl 10 Mg Suppository RECTAL DAILY PRN Constipation Citalopram Hydrobromide 30 mg 05/21/22 12:35 05/22/22 08:15 Citalopram Hydrobromide 10 Mg Tablet PO 30 mg DAILY DARRIAN Administration Dextrose 12.5 gm 05/19/22 21:30 Dextrose 50% 25 Gm/50 Ml Syringe IV PUSH PRN PRN Hypoglycemia Protocol Enoxaparin Sodium 40 mg 05/20/22 09:00 05/22/22 08:15 Enoxaparin 40 Mg/0.4 Ml Syringe SUB-Q 40 mg DAILY DARRIAN Administration Famotidine 20 mg 05/22/22 09:00 05/22/22 08:15 Famotidine 20 Mg Tablet PO 20 mg DAILY DARRIAN Administration Ferrous Sulfate 324 mg 05/22/22 09:00 1
--- NOTE | 2022-05-22 13:51 | PM.DS ---
DS: Admitting Diagnosis Discharge Date 05/22/22 Admitting Diagnosis Right foot wound DS: Discharge Diagnosis Discharge Diagnosis (1) Severe sepsis: Code(s): A41.9 - Sepsis, unspecified organism; R65.20 - Severe sepsis without septic shock Status: Acute (2) Necrotizing soft tissue infection: Code(s): M79.89 - Other specified soft tissue disorders Status: Acute (3) Diabetic infection of right foot: Code(s): E11.628 - Type 2 diabetes mellitus with other skin complications; L08.9 - Local infection of the skin and subcutaneous tissue, unspecified Status: Acute (4) Chronic anemia: Code(s): D64.9 - Anemia, unspecified Status: Acute (5) Acute kidney injury: Code(s): N17.9 - Acute kidney failure, unspecified Status: Acute (6) Insulin dependent diabetes mellitus: Status: Chronic (7) Hypernatremia: Code(s): E87.0 - Hyperosmolality and hypernatremia Status: Acute (8) Heart failure with preserved ejection fraction: Code(s): I50.30 - Unspecified diastolic (congestive) heart failure Status: Acute (9) Hypertension: Code(s): I10 - Essential (primary) hypertension Status: Acute DS: Summary Hospital Course Reason for hospitalization: 61yo male with hx of CVA and is nonverbal here for right foot wound and now s/p Right AKA. Please see H&P for details Hospital Course: Patient presents with right foot wound with x-ray showing plantar soft tissue ulceration of the calcaneus with large amount of soft tissue gas projecting near the calcaneus and into the lateral aspect of the midfoot.? Patient was seen by General surgery and is now status post right spigv-gcp-cqmx amputation per Dr. Diallo performed on 05/19/22. Sepsis was present on admission with fever and tachycardia related to necrotizing soft tissue infection.? He was treated with cefepime, Flagyl and vancomycin.? Blood culture no growth to date.? Fever has resolved.? White count trended downward.?He also has a large unstageable pressure ulcer on the left heel present on admission. Wound care nurse was consulted and we continued with off-loading and dressing changes. Hgb chronically low in the 7-8 range. Hgb 8.6 on admission but dropped to 6.7. He received 2U PRBC with Hgb better at 9.5. Cr 1.5 on admission felt to be NANCY related to the sepsis picture and dehydration. Cr back to baseline. BP elevated so valsartan low dose added with good results. Patient overall did well and was discharged on 05/22/22 Status at Discharge Cognitive/behavioral status at discharge: stable Time Spent with Patient Time attestation: Total time spent providing and/or coordinating discharge services: 34 minutes Time spent: Greater than 30 minutes Exam Narrative: AF 97.2 129/67 67 16 96% ra Gen - NARD lying semi-recumbent in bed Chest -lungs clear anteriorly to quiet respirations. Nml RR CV - RRR S1/S2 Abd - Soft, NT/ND, Positive BS Ext -right above-knee amputation. No left lower extremity edema. Neuro - Alert. Nonverbal Skin - Warm and dry. Left heel ulcer with clean base. Left forehead small abrasion clean and dry DS: Data Data Completed and Pending Pending studies at discharge: Pending at discharge 05/19/22 15:44 Surgical [PTH] Routine Labs on day of discharge: Labs from last 24 hours 05/22/22 05/22/22 05/22/22 11:45 07:57 06:25 WBC RBC Hgb Hct MCV MCH MCHC RDW Plt Count MPV Immature Gran % (Auto) Neut % (Auto) Lymph % (Auto) [place] % (Auto) Eos % (Auto) Baso % (Auto) Lymph # (Auto) [place] # (Auto) Eos # (Auto) Baso # (Auto) Abs Immat Gran (auto) Absolute Neuts (auto) Absolute Nucleated RBC Nucleated RBC % Sodium Potassium Chloride Carbon Dioxide Anion Gap BUN Creatinine Estim Creat Clear Calc Estimated GFR Glucose POC Capillary Glucose
[2022-05-22 14:00] VITALS: BP 118/64; PULSE 76; RESP 16; TEMP 36.9; O2SAT 97
[2022-05-22] MEDS: SILVERGEL (ELTA) 45 ML 1 APPLIC TOPICAL (16:04)
[2022-05-22 16:38] LABS: Glucose Point of Care 164 mg/dl (65-105)
[2022-05-22 16:40] LABS: EDCOVIDSCREEN Negative (Negative)
== END 2022-05-22 18:10 | DRG 853 ==
LOC: ANHED 12:42 → ANHIMU 05-20 06:14 → ANH3MEDSUR 05-22 10:20 → ANHED 05-26 11:08 → ANHSURGERY 05-26 11:08 → ANH3MEDSUR 05-26 11:09 → ANHIMU 05-26 11:09
PROVIDERS: Internal Medicine; Physician Assistant; Admitting Provider Surgery; Emergency Provider Emergency Medicine; Visit Provider Internal Medicine
PROC: 0Y6C0Z3 Detachment at Right Upper Leg, Low, Open Approach (ICD-10-PCS; CPT 27590; principal; 2022-05-19 14:30)
DX: A41.9 Sepsis, unspecified organism (principal); A48.0 Gas gangrene; E11.52 Type 2 diabetes mellitus with diabetic peripheral angiopathy with gangrene; E87.0 Hyperosmolality and hypernatremia; I13.0 Hypertensive heart and chronic kidney disease with heart failure and stage 1 through stage 4 chronic kidney disease, or unspecified chronic kidney disease; I50.32 Chronic diastolic (congestive) heart failure; N17.9 Acute kidney failure, unspecified; L97.414 Non-pressure chronic ulcer of right heel and midfoot with necrosis of bone; I70.261 Atherosclerosis of native arteries of extremities with gangrene, right leg; L97.428 Non-pressure chronic ulcer of left heel and midfoot with other specified severity; E11.51 Type 2 diabetes mellitus with diabetic peripheral angiopathy without gangrene; E11.628 Type 2 diabetes mellitus with other skin complications; E11.621 Type 2 diabetes mellitus with foot ulcer; I70.244 Atherosclerosis of native arteries of left leg with ulceration of heel and midfoot; R65.20 Severe sepsis without septic shock; I25.10 Atherosclerotic heart disease of native coronary artery without angina pectoris; E11.22 Type 2 diabetes mellitus with diabetic chronic kidney disease; N18.9 Chronic kidney disease, unspecified; M62.462 Contracture of muscle, left lower leg; M62.461 Contracture of muscle, right lower leg; F32.A Depression, unspecified; F41.9 Anxiety disorder, unspecified; I69.320 Aphasia following cerebral infarction; I25.2 Old myocardial infarction; Z95.5 Presence of coronary angioplasty implant and graft; Z79.4 Long term (current) use of insulin; Z79.01 Long term (current) use of anticoagulants
CPT/HCPCS: 36415; 36430; 70450; 73630; 80048; 80053; 80069; 80202; 82565; 82948; 83036; 83605; 83735; 84443; 85014; 85018; 85025; 85610; 85652; 85730; 86140; 86850; 86900; 86901; 86920; 87040; 87426; 88307; 88311; 96365; 96367; 99285; A9270; C9803; J0330; J0692; J1650; J1815; J1940; J2250; J2310; J2370; J2405; J2704; J3010; J3370; J7030; J7050; J7120; P9016; U0003; U0005

== ENCOUNTER 2022-05-29 08:24 | Observation (INO) | payer OTHER, SELFPAY ==
[2022-05-29] VITALS (49 sets, daily range): BP systolic 103–185; BP diastolic 61–118; PULSE 62–87; RESP 11–46; TEMP 36.1–37.3; O2SAT 96–100; BMI 21.2
--- NOTE | ~2022-05-29 | XR_ITS ---
EXAMINATION: XR chest 1V portable INDICATION: Productive cough TECHNIQUE: Portable AP chest at 1011 hours COMPARISON: 01/01/2022 FINDINGS: The lungs are free of acute opacities. No pleural effusion or pneumothorax. The heart size is normal. Median sternotomy wires and mediastinal surgical clips are seen, likely from prior coronar y artery bypass grafting. IMPRESSION: 1. No acute cardiopulmonary abnormality. Reviewed, dictated and finalized at location B.
[2022-05-29 09:11] LABS: Hematocrit 33.6 % (42.0-52.0); Hemoglobin 10.4 g/dL (14.0-18.0); Immature Granulocyte Percent A 1.1 % (0-0.5); Mean Corpuscular Hemoglobin 25.6 pg (26-34); Mean Corpuscular Volume 82.8 fl (80-100); Mean Platelet Volume 8.7 fl (7.4-10.4); Neutrophils Percent Auto 82.3 % (45.5-73.1); Platelet Count Result 649 k/mm3 (150-375); Red Blood Count 4.06 M/mm3 (4.6-6.20); Red Cell Distribution Width 17.9 % (11.5-14.5); White Blood Count 14.8 K/mm3 (4.5-10.0)
[2022-05-29 09:12] LABS: Basophils Absolute Auto 0.1 K/mm3 (0.0-0.1); Basophils Percent Auto 0.6 % (0.2-1.2); Eosinophils Absolute Auto 0.4 K/mm3 (0-0.3); Eosinophils Percent Auto 2.9 % (0-4.4); Immature Granulocyte Absolute 0.16 K/mm3 (0.00-0.031); Lymphocytes Absolute Auto 1.19 K/mm3 (0.9-3.2); Monocytes Absolute Auto 0.8 K/mm3 (0.1-0.6); Monocytes Percent Auto 5.1 % (2.6-8.5); Neutrophils Absolute Auto 12.2 K/mm3 (1.3-6.7)
[2022-05-29 09:20] LABS: Alanine Aminotransferase 12 U/L (6-50); Albumin Level 3.2 g/dL (3.5-5.1); Alkaline Phosphatase 114 U/L (38-126); Anion Gap 6 mmol/L (8-16); Aspartate Amino Transferase 27 U/L (17-59); Bilirubin,Total 0.4 mg/dL (0.2-1.3); Blood Urea Nitrogen 13 mg/dL (9-20); Calcium 8.2 mg/dL (8.4-10.2); Carbon Dioxide 27 mmol/L (22-30); Chloride 105 mmol/L (98-107); Estimated CRCL calculation 61 ml/min; Estimated Glomerular Filt Rate > 60; Glucose 113 mg/dL (65-110); Lipase 15 U/L (23-300); Potassium 4.3 mmol/L (3.4-5.0); Sodium 138 mmol/L (137-145)
--- NOTE | 2022-05-29 09:30 | PC.NURSE ---
PT'S DAUGHTER SHIVA CALLED FOR UPDATE REGARDING HER FATHER. PHONE # [phone]
--- NOTE | 2022-05-29 09:49 | ED.NAVMDI ---
HPI - Nausea/Vomiting/Diarrhea General Chief complaint: Nausea/Vomiting/Diarrhea Stated complaint: vomit blood Time Seen by Provider: 05/29/22 09:46 Source: EMS and RN notes reviewed Mode of arrival: EMS Limitations: clinical condition History of Present Illness HPI Narrative: Patient is 61 years old -[place] male came from [facility] by ambulance last night, patient is aphasic, nonverbal, status post right above-knee amputation 10 days ago. Patient is not on any antiplatelet or anticoagulant medication Related Data Home Medications Medication Instructions Recorded Confirmed acetaminophen 500 mg tablet 500 mg PO Q4H PRN Pain 10/08/21 05/20/22 famotidine 20 mg tablet 20 mg PO DAILY 10/08/21 05/20/22 ferrous sulfate 325 mg (65 mg 325 mg PO DAILY 10/08/21 05/20/22 iron) tablet insulin detemir U-100 100 unit/mL 12 unit subcut HS 10/08/21 05/20/22 (3 mL) subcutaneous pen (Levemir FlexTouch U-100 Insulin) risperidone 2 mg tablet 2 mg PO HS 10/08/21 05/20/22 Novolog U-100 Insulin aspart 7 units subcut TIDWM 12/27/21 05/20/22 mupirocin 2 % topical ointment 1 applic topical BID 12/30/21 05/20/22 atropine 1 % eye drops 2 drp sublingual Q4H PRN Secretions 05/20/22 05/20/22 bisacodyl 10 mg rectal suppository 10 mg RECTAL DAILY PRN Constipation 05/20/22 05/20/22 cholecalciferol (vitamin D3) 25 25 mcg PO DAILY 05/20/22 05/20/22 mcg (1,000 unit) capsule citalopram 10 mg tablet 30 mg PO DAILY 05/20/22 05/20/22 hydroxyzine HCl 25 mg tablet 25 mg PO HS 05/20/22 05/20/22 risperidone 1 mg tablet 1.5 mg PO DAILY 05/20/22 05/20/22 Allergies Allergy/AdvReac Type Severity Reaction Status Date / Time No Known Allergies Allergy Verified 05/29/22 08:58 Review of Systems Review of Systems: All systems reviewed & are unremarkable except as noted in HPI and below PMFSH Past Medical History Medical History Cerebrovascular accident (2018) He was left nonverbal with dysphagia and interactions, unable to walk. Chronic anemia Chronic kidney disease Closed displaced fracture of right femoral neck Coronary artery disease Depression with anxiety Dysphagia Heart failure with preserved ejection fraction Hypertension Insulin dependent diabetes mellitus Myocardial infarction Surgical History Surgical History History of cardiac catheterization History of coronary artery stent placement History of open heart surgery History of open reduction and internal fixation (ORIF) procedure Repair of right hip fracture. Family History Family History Father Acute myocardial infarction Congestive heart failure Mother Cerebrovascular accident Diabetes mellitus Grandparent Colon cancer Asthma Social History Social History Social History: Resident of [facility]. No alcohol, tobacco, or drug use. Surrogate decision maker: Esperanza Dos Santos, daughter. Code status: Full code. Spiritual care concerns: No Exam Narrative: General appearance: Well-developed, well-nourished, laying in bed, eyes open, nonverbal Skin: Decubitus ulcer, Head: Normocephalic, nontraumatic Eyes: Clear conjunctiva ENT: Oropharynx normal, ears normal, nose normal Neck: Supple, nontender Chest and respiratory: Airway patent, no respiratory distress, no accessory muscle use Heart: Regular rate/rhythm Abdomen: Soft, nontender, no organomegaly, quiet bowel sounds, rectal exam showed dark stool, guaiac positive Musculoskeletal: Right above-knee amputation stump looks clean and dry Course Consultations Consultation #1: DR JADE
--- NOTE | 2022-05-29 09:53 | ECG_ITS ---
Measurements Intervals Athena Rate: 64 P: 99 SD: 145 QRS: 24 QRSD: 82 T: 53 QT: 481 QTc: 498 Interpretive Statements SINUS RHYTHM POSSIBLE LEFT ATRIAL ENLARGEMENT [-0.1mV P-WAVE IN V1/V2] PROLONGED QT INTERVAL ABNORMAL ECG COMPARED TO ECG 01/01/2022 09:04:38 PROLONGED QT INTERVAL NOW PRESENT Electronically Signed On 05-29-2022 14:57:30 CDT by Travis Gonzales M.D.
[2022-05-29] MEDS: SODIUM CHLORIDE 0.9% IV 1,000 ML 999 ML IV CONT (10:05)
[2022-05-29 10:28] LABS: INR 1.3; Prothrombin Time 15.2 Seconds (11.1-14.7)
[2022-05-29 10:30] LABS: Partial Thromboplastin Time 53.7 SECONDS (22.3-36.8)
[2022-05-29 11:10] LABS: Add Urine Microscopic? YES; Appearance Urine Cloudy (Clear); Bacteria Urine Trace /hpf; Bilirubin Urine Negative (Negative); Blood Urine Negative (Negative); Color Urine Yellow (Yellow); Glucose Urine UA Negative (Negative); Ketones Urine Negative (Negative); Leukocyte Esterase Ur Negative LEU/UL (Negative); Mucus Urine Rare /lpf; Nitrate Urine Negative (Negative); Protein Urine 1+ mg/dL (Negative); WBC Urine 0-3 /hpf
[2022-05-29 11:32] LABS: SARS-CoV-2 RNA PCR Negative
[2022-05-29 14:57] LABS: Hematocrit 34.4 % (42.0-52.0); Hemoglobin 10.5 g/dL (14.0-18.0)
--- NOTE | 2022-05-29 15:07 | PC.NURSE ---
food tray ordered
[2022-05-29] MEDS: PANTOPRAZOLE SODIUM IV 40 MG VIAL IV PUSH (15:53)
--- NOTE | 2022-05-29 16:15 | CONS_ITS ---
This report was moved to the correct visit on 06/10/22. Original report was signed by Christian Ojeda MD on 05/29/22 [id number]. Assessment and Plan Assessment and plan (1) Hematemesis: Code(s): K92.0 - Hematemesis Status: Acute Assessment and Plan: Patient with hematemesis. A week and half ago had a right [id number] amputation. He has not been on blood thinners. I suspect stress gastritis or ulcerations most likely etiology. Plan to cover with PPI therapy. Monitor hemoglobin. An EGD will be performed in the morning. Further recommendations after endoscopy. (2) Chronic anemia: Code(s): D64.9 - Anemia, unspecified Status: Acute Assessment and Plan: patient has chronic anemia however hemoglobin much improved after recent transfusion at the time of right leg amputation. We will continue monitor. No significant decline in hemoglobin associated with description hematemesis (3) Nonverbal: Code(s): R47.01 - Aphasia Status: Acute Assessment and Plan: patient unable to add any useful history because of aphasia secondary to a CVA. (4) Cerebrovascular accident: Onset Date: 2017 Code(s): I63.9 - Cerebral infarction, unspecified Status: Acute (5) History of open heart surgery: Code(s): Z98.890 - Other specified postprocedural states Status: Acute GI Consult Note Consult date/time: 05/29/22 16:10 Reason for consult: Hematemesis HPI: Dilshad Power is a 61 year old male I am asked to see at the request of the ER because of hematemesis. Patient has a distant history of a CVA. He is aphasic. He has history of coronary artery disease, endocarditis, hypertension and diabetes. Patient admitted the hospital 05/19/2022. That time he was septic from a very severely infected right foot. He on underwent emergency amputation on 05/19/[address] bryant. Patient subsequently has been at the rehab hospital. Apparently noted to have hematemesis. In transfer to the ER. The nature of the hematemesis, quantity in appearance is not immediately available or able to be described by staff at our hospital nor by the patient. He remains nonverbal. Patient is chronically anemic however hemoglobin is much improved from recent hospital stay. Stools are reported to be greenish but Hemoccult positive. Review of Systems Review of Systems: ROS unobtainable: Yes unobtainable due to medical condition [facility] Past Medical History Medical History (Updated 05/29/22 @ 16:13 by Christian Ojeda MD) Cerebrovascular accident (2018) He was left nonverbal with dysphagia and interactions, unable to walk. Chronic anemia Chronic kidney disease Closed displaced fracture of right femoral neck Coronary artery disease Depression with anxiety Dysphagia Heart failure with preserved ejection fraction Hypertension Insulin dependent diabetes mellitus Myocardial infarction Surgical History Surgical History (Updated 05/29/22 @ 16:13 by Christian Ojeda MD) History of cardiac catheterization History of coronary artery stent placement History of open heart surgery History of open reduction and internal fixation (ORIF) procedure Repair of right hip fracture. Family History Family History Father Acute myocardial infarction Congestive heart failure Mother Cerebrovascular accident Diabetes mellitus Grandparent Colon cancer Asthma Social History Social History Social History: Resident of [facility]. No alcohol, tobacco, or drug use. Surrogate decision maker: Esperanza Dos Santos, daughter. Code status: Full code. Spi
[2022-05-29 20:50] LABS: Hematocrit 30.6 % (42.0-52.0); Hemoglobin 9.5 g/dL (14.0-18.0)
[2022-05-29] MEDS: SODIUM CHLORIDE 0.9% IV 1,000 ML 125 ML IV CONT (21:08)
--- NOTE | 2022-05-29 23:57 | PM.IMHP ---
H&P: HPI History of Present Illness Date/Time: 05/29/22 23:57 Chief Complaint: Nausea vomiting diarrhea Narrative: this is a 61-year-old male patient who came from [facility]. He has a history of having a CVA and has expressive aphasia. He is nonverbal but he is answering questions with yes and no. The patient had a above the knee amputation 10 days ago. The patient is not on any anti-platelet or anticoagulation medication. The patient has hematemesis at the facility. GI has been consulted and an EGD will be performed in the morning. His H&H was 10.4 and 33.6 is now 9.5 and 30.6. His white count is noted to be 14.8. His COVID is negative. Chest x-ray was read as no acute cardiopulmonary abnormality. The patient was given IV fluids, Zofran, Tylenol and Protonix. The patient is being admitted to observation status on the date of service of 05/30/2022. Review of Systems Review of Systems: See HPI All systems reviewed & are unremarkable except as noted in HPI and below Constitutional: Constitutional: Reports as per HPI and Reports no additional constitutional complaints Eyes: Eyes: Reports as per HPI and Reports no additional eye complaints ENT: Reports system reviewed and no additional complaints, except as documented and Reports Normal hearing present Cardiovascular: Cardiovascular: Reports no additional cardiovascular complaints Respiratory: Respiratory: Reports no additional respiratory complaints and Reports no additional respiratory complaints Gastrointestinal: Gastrointestinal: Reports as per HPI and Reports no additional gastrointestinal complaints Musculoskeletal: Musculoskeletal: Reports no additional musculoskeletal complaints Integumentary/Breasts: Skin/Breast: Reports system reviewed and no additional complaints, except as docu and Reports as per HPI Neurologic: Reports system reviewed and no additional complaints, except as documented, Reports as per HPI and Reports Normal hearing present Psychiatric: Psychiatric: Reports no additional psychiatric complaints and Reports as per HPI Endocrine: Endocrine: Reports no additional endocrine complaints Hematologic/Lymphatic: Hematologic/Lymphatic: Reports no additional hematologic/lymphatic complaints Allergic/Immunologic: Allergic/Immunologic: Reports no additional allergic/immunologic complaints [facility] Past Medical History Medical History Cerebrovascular accident (2018) He was left nonverbal with dysphagia and interactions, unable to walk. Chronic anemia Chronic kidney disease Closed displaced fracture of right femoral neck Coronary artery disease Depression with anxiety Dysphagia Heart failure with preserved ejection fraction Hypertension Insulin dependent diabetes mellitus Myocardial infarction Surgical History Surgical History History of cardiac catheterization History of coronary artery stent placement History of open heart surgery History of open reduction and internal fixation (ORIF) procedure Repair of right hip fracture. Family History Family History Father Acute myocardial infarction Congestive heart failure Mother Cerebrovascular accident Diabetes mellitus Grandparent Colon cancer Asthma Social History Social History Social History: Resident of [facility]. No alcohol, tobacco, or drug use. Surrogate decision maker: Esperanza Dos Santos, daughter. Code status: Full code. Smoking status: Unknown if ever smoked Spiritual care concerns: No Comments patient only answers yes and no. The information was obtained from previous records. Meds Home Medications and Allergies Home Medications Medication Instructions Recorded Confirmed Type acetaminophen 500 mg tablet 500
[2022-05-30] VITALS (11 sets, daily range): BP systolic 99–150; BP diastolic 46–83; PULSE 67–76; RESP 12–20; TEMP 36.4–36.9; O2SAT 97–100
[2022-05-30] MEDS: hydrOXYzine HCL 25 MG TABLET PO ×2 (02:40→20:57)
[2022-05-30] MEDS: risperiDONE 1 MG TABLET 2 MG PO ×2 (02:40→20:57)
[2022-05-30 04:11] LABS: Hematocrit 30.7 % (42.0-52.0); Hemoglobin 9.3 g/dL (14.0-18.0)
[2022-05-30 04:59] LABS: Hemoglobin A1C 7.4 % (<5.7)
[2022-05-30] MEDS: SODIUM CHLORIDE 0.9% IV 1,000 ML 125 ML IV CONT ×2 (05:08→15:00)
[2022-05-30 05:31] LABS: Alanine Aminotransferase 12 U/L (6-50); Albumin Level 2.9 g/dL (3.5-5.1); Alkaline Phosphatase 120 U/L (38-126); Anion Gap 10 mmol/L (8-16); Aspartate Amino Transferase 23 U/L (17-59); Bilirubin,Total 0.6 mg/dL (0.2-1.3); Blood Urea Nitrogen 12 mg/dL (9-20); Carbon Dioxide 23 mmol/L (22-30); Chloride 104 mmol/L (98-107); Estimated CRCL calculation 68 ml/min; Estimated Glomerular Filt Rate > 60; Glucose 80 mg/dL (65-110); Lactate Dehydrogenase 217 U/L (120-246); Magnesium 1.6 mg/dL (1.6-2.3); Sodium 137 mmol/L (137-145)
[2022-05-30 07:49] LABS: Iron 38 ug/dL (49-181)
[2022-05-30 07:58] LABS: Percent Iron Saturation 19 % (20-50)
[2022-05-30 08:07] LABS: Glucose Point of Care 81 mg/dl (65-105)
[2022-05-30 08:09] LABS: Hematocrit 30.7 % (42.0-52.0); Hemoglobin 9.4 g/dL (14.0-18.0)
[2022-05-30] MEDS: CITALOPRAM HYDROBROMIDE 10 MG TABLET 30 MG PO (08:29)
[2022-05-30] MEDS: risperiDONE 0.5 MG TABLET 1.5 MG PO (08:30)
[2022-05-30] MEDS: MAGNESIUM SULF 2 GM/WATER 50ML 2 GM/50 ML BAG IVPB (08:30)
[2022-05-30] MEDS: PANTOPRAZOLE SODIUM IV 40 MG VIAL IV PUSH (08:30)
[2022-05-30 09:01] LABS: Folic Acid 10.2 ng/mL (2.76->20)
[2022-05-30] MEDS: LACTATED RINGERS 1,000 ML 150 ML IV CONT (09:16)
[2022-05-30 09:30] LABS: Glucose Point of Care 85 mg/dl (65-105)
--- NOTE | 2022-05-30 09:36 | PCOTNOTE ---
Attempted to see pt. for occupational therapy evaluation. Pt.is away from room at this time for testing. Nursing aware. Following.
--- NOTE | 2022-05-30 10:17 | WPDANESEPPF ---
Anes - Initial Pre Proc Eval Procedure: Operation Date: 05/30/22 14:30 Proposed Procedures p Esophagogastroduodenoscopy - Christian Ojeda MD Date/Time: 05/30/22 10:17 Surgeon: Lion Jeffrey MD Pre Op Diagnosis: gi bleed Patient Data Age: 61 Gender: M Height: 1.73 m Weight: 63.2 kg Last Vital Signs Temp 97.6 F 05/30/22 09:06 Pulse 68 05/30/22 09:06 Resp 15 05/30/22 09:06 BP 141/74 H 05/30/22 09:06 Pulse Ox 99 05/30/22 09:06 O2 Del Method Room Air 05/30/22 09:06 Allergies Allergy/AdvReac Type Severity Reaction Status Date / Time No Known Allergies Allergy Verified 05/30/22 09:03 Home Medications Medication Instructions Recorded Confirmed Type acetaminophen 500 mg tablet 500 mg PO Q4H PRN Pain 10/08/21 05/29/22 History famotidine 20 mg tablet 20 mg PO DAILY 10/08/21 05/29/22 History ferrous sulfate 325 mg (65 mg 325 mg PO DAILY 10/08/21 05/29/22 History iron) tablet insulin detemir U-100 100 unit/mL 12 unit subcut HS 10/08/21 05/29/22 History (3 mL) subcutaneous pen (Levemir FlexTouch U-100 Insulin) risperidone 2 mg tablet 2 mg PO HS 10/08/21 05/29/22 History Novolog U-100 Insulin aspart 7 units subcut TIDWM 12/27/21 05/29/22 History ondansetron 4 mg disintegrating 4 mg PO Q8H PRN nausea and 12/28/21 05/29/22 Rx tablet vomiting #14 tabs mupirocin 2 % topical ointment 1 applic topical BID 12/30/21 05/29/22 History atropine 1 % eye drops 2 drp sublingual Q4H PRN Secretions 05/20/22 05/29/22 History bisacodyl 10 mg rectal suppository 10 mg RECTAL DAILY PRN Constipation 05/20/22 05/29/22 History cholecalciferol (vitamin D3) 25 25 mcg PO DAILY 05/20/22 05/29/22 History mcg (1,000 unit) capsule citalopram 10 mg tablet 30 mg PO DAILY 05/20/22 05/29/22 History hydroxyzine HCl 25 mg tablet 25 mg PO HS 05/20/22 05/29/22 History risperidone 1 mg tablet 1.5 mg PO DAILY 05/20/22 05/29/22 History silver sulfadiazine 1 % topical 1 applic topical DAILY #20 grams 05/22/22 05/29/22 Rx cream (SSD) acetaminophen 650 mg rectal 650 mg RECTAL Q4-5H PRN Fever Or 05/29/22 05/29/22 History suppository Pain morphine 100 mg/5 mL oral 5 mg PO Q4-5H PRN Pain 05/29/22 05/29/22 History concentrate Laboratory Tests 05/29/22 05/29/22 05/29/22 09:07 10:01 10:38 Hgb Hct PT 15.2 Seconds H Seconds (11.1-14.7) INR 1.3 APTT 53.7 SECONDS H SECONDS (22.3-36.8) Sodium Potassium Chloride Carbon Dioxide Anion Gap BUN Creatinine Estim Creat Clear Calc Estimated GFR Glucose POC Capillary Glucose Hemoglobin A1c Calcium Phosphorus Magnesium Iron TIBC % Saturation Ferritin Total Bilirubin AST ALT Alkaline Phosphatase Lactate Dehydrogenase Total Protein Albumin Vitamin B12 Folate Urine Color Yellow (Yellow) Urine Appearance Cloudy H (Clear) Urine pH 5.0 (5.0-9.0) Ur Specific [place] 1.020 (1.001-1.035) Urine Protein 1+ mg/dL H mg/dL (Negative) Urine Glucose (UA) Negative mg/dL mg/dL (Negative) Urine Ketones Negative mg/dL mg/dL (Negative) Ur Blood (Man) Negative (Negative) Urine Nitrate Negative (Negative) Urine Bilirubin Negative (Negative) Urine Urobilinogen 4.0 mg/dL H mg/dL (<2.0) Leukocyte Esterase Rfl Negative CAITLYN/UL CAITLYN/UL (Negative) Urine RBC 3-5 /hpf H /hpf (0-2) Urine WBC 0-3 /hpf /hpf Urine Bacteria Trace /hpf /hpf Hyaline Casts 5-9 /lpf H /lpf (None) Urine Mucus Rare /lpf /lpf
[2022-05-30] MEDS: FERROUS SULFATE 324 MG TABLET PO (12:03)
[2022-05-30 12:05] LABS: Glucose Point of Care 90 mg/dl (65-105)
[2022-05-30 14:23] LABS: Hemoglobin 9.7 g/dL (14.0-18.0); Mean Corpuscular HGB Conc 30.3 g/dl (32-36); Mean Corpuscular Volume 82.5 fl (80-100); Mean Platelet Volume 9.2 fl (7.4-10.4); Platelet Count Result 358 k/mm3 (150-375); Red Blood Count 3.88 M/mm3 (4.6-6.20); Red Cell Distribution Width 17.7 % (11.5-14.5); White Blood Count 13.9 K/mm3 (4.5-10.0)
--- NOTE | 2022-05-30 14:30 | PM.IMPN ---
Progress Note: A&P Assessment and Plan (1) Hematemesis: Code(s): K92.0 - Hematemesis Status: Acute Assessment and Plan: -GI has been consulted. -EGD performed showed no bleeding - continue with pantoprazole. - transfuse as necessary. (2) Cerebrovascular accident: Onset Date: 2017 Code(s): I63.9 - Cerebral infarction, unspecified Status: Acute Assessment and Plan: -The patient has expressive aphasia. He is able to answer yes and no. He is able to follow instructions. (3) Heart failure with preserved ejection fraction: Code(s): I50.30 - Unspecified diastolic (congestive) heart failure Status: Acute Assessment and Plan: -appears euvolemic at this time Trend urine output -daily weights No acute exacerbation Appears to be a chronic diastolic heart failure - echo 01/01/2022 was read as the following1. Limited echocardiogram to assess atrial septum. ? 2. Agitated saline injection with and without valsalva maneuver opacified right side cardiac chambers without shunt to left side cardiac chambers. ? 3. Intact interatrial septum visualized by 2D and agitated saline imaging. (4) Insulin dependent diabetes mellitus: Status: Chronic Assessment and Plan: -Accu-Cheks AC and HS with sliding scale insulin. Check A1c if not performed in the last 6 months. Continue with Lantus. (5) Depression with anxiety: Code(s): F41.8 - Other specified anxiety disorders Status: Acute Assessment and Plan: -Continue with risperidone -continue with Celexa -continue with hydroxyzine -stable (6) Hypertension: Code(s): I10 - Essential (primary) hypertension Status: Acute Assessment and Plan: -continue with p.r.n. hydralazine with parameters -current blood pressure 114/46 Time Spent With Patient Time with patient: Greater than 35 minutes Subjective Date/time seen: 05/30/22 1430 Interval history: 05/30/22 1430 Patient appears stable at this time. Patient did state that he was in pain however is the ability to get a complete review of systems is unable due to the patient's mental status and unable to talk. He did state that he was in pain in that he was hungry. He denies any further bleeding nausea vomiting. They did state that he was able to eat his tray. Lap counts have remained stable. 05/29/22? 23:57 ?this is a 61-year-old male patient who came from [facility].? He has a history of having a CVA and has expressive aphasia.? He is nonverbal but he is answering questions with yes and no.? The patient had a above the knee amputation 10 days ago.? The patient is not on any anti-platelet or anticoagulation medication.? The patient has hematemesis at the facility.? GI has been consulted and an EGD will be performed in the morning.? His H&H was 10.4 and 33.6 is now 9.5 and 30.6.? His white count is noted to be 14.8.? His COVID is negative.? Chest x-ray was read as no acute cardiopulmonary abnormality.? The patient was given IV fluids, Zofran, Tylenol and Protonix.? The patient is being admitted to observation status on the date of service of 05/30/2022. Review of Systems Review of Systems: All systems reviewed & are unremarkable except as noted in HPI and below Exam Const: General: cooperative, healthy appearing, comfortable, no acute distress, well developed, alert, awake, Physically active, average body habitus and thin Nutritional Appearance: average body habitus and thin Orientation/consciousness: oriented to person Limitations: no limitations HENMT: Head: normal to inspection, No palpable skull fracture present, normocephalic, atraumatic and abrasion Ears: hearing grossly normal bilaterally and external ears normal Face/Nose/Sinus: Normal external nose present and Normal nares present Eyes: General: appearance no
[2022-05-30] MEDS: IRON SUCROSE COMPLEX 300 MG in SODIUM CHLORIDE 0.9% IV 250 ML 78.57 MG IVPB (15:01)
[2022-05-30 16:17] LABS: Glucose Point of Care 201 mg/dl (65-105)
[2022-05-30 16:19] LABS: Hematocrit 29.4 % (42.0-52.0); Hemoglobin 9.1 g/dL (14.0-18.0)
[2022-05-30] MEDS: INSULIN ASPART (*BKC) 100 UNITS/ML SUB-Q (16:26)
[2022-05-30] MEDS: SILVERGEL (ELTA) 45 ML 1 APPLIC TOPICAL (16:26)
[2022-05-30] MEDS: INSULIN GLARGINE (*BKC) 100 UNITS/ML 12 UNITS SUB-Q (21:09)
[2022-05-30 22:23] LABS: Hematocrit 28.9 % (42.0-52.0)
[2022-05-31] VITALS (8 sets, daily range): BP systolic 122–152; BP diastolic 57–89; PULSE 60–78; RESP 16–18; TEMP 36.2–37; O2SAT 97–100
[2022-05-31] MEDS: SODIUM CHLORIDE 0.9% IV 1,000 ML 125 ML IV CONT ×3 (02:52→20:36)
[2022-05-31] MEDS: CEFEPIME 2 GM in DEXTROSE 5% IN WATER 50 ML IVPB ×2 (02:52→09:07)
[2022-05-31 05:47] LABS: Hematocrit 28.3 % (42.0-52.0); Hemoglobin 8.8 g/dL (14.0-18.0); Mean Corpuscular HGB Conc 31.1 g/dl (32-36); Mean Corpuscular Hemoglobin 25.5 pg (26-34); Mean Platelet Volume 8.8 fl (7.4-10.4); Platelet Count Result 595 k/mm3 (150-375); Red Blood Count 3.45 M/mm3 (4.6-6.20); Red Cell Distribution Width 17.4 % (11.5-14.5); White Blood Count 11.4 K/mm3 (4.5-10.0)
[2022-05-31 05:51] LABS: Glucose Point of Care 189 mg/dl (65-105)
[2022-05-31 06:06] LABS: Alanine Aminotransferase 10 U/L (6-50); Albumin Level 2.6 g/dL (3.5-5.1); Alkaline Phosphatase 85 U/L (38-126); Anion Gap 10 mmol/L (8-16); Aspartate Amino Transferase 16 U/L (17-59); Bilirubin,Total 0.4 mg/dL (0.2-1.3); Blood Urea Nitrogen 8 mg/dL (9-20); Calcium 7.7 mg/dL (8.4-10.2); Carbon Dioxide 24 mmol/L (22-30); Chloride 106 mmol/L (98-107); Estimated CRCL calculation 68 ml/min; Estimated Glomerular Filt Rate > 60; Glucose 143 mg/dL (65-110); Magnesium 1.8 mg/dL (1.6-2.3); Potassium 3.6 mmol/L (3.4-5.0); Sodium 140 mmol/L (137-145)
[2022-05-31 08:35] LABS: Glucose Point of Care 114 mg/dl (65-105)
[2022-05-31] MEDS: PANTOPRAZOLE SODIUM IV 40 MG VIAL IV PUSH (09:06)
[2022-05-31] MEDS: risperiDONE 0.5 MG TABLET 1.5 MG PO (09:06)
[2022-05-31] MEDS: CITALOPRAM HYDROBROMIDE 10 MG TABLET 30 MG PO (09:06)
[2022-05-31] MEDS: FERROUS SULFATE 324 MG TABLET PO (09:06)
[2022-05-31] MEDS: SILVERGEL (ELTA) 45 ML 1 APPLIC TOPICAL (09:07)
--- NOTE | 2022-05-31 10:23 | WPDANESPN ---
Anes - Prog Note Post-Op Date/Time: 05/31/22 10:23 Cardiovascular status: normal Respiratory status: normal Airway patency: baseline Mental status: baseline Post-Op hydration status: normal Vital Signs: Last Vital Signs Temp 37.0 C 05/31/22 03:43 Pulse 60 05/31/22 03:43 Resp 17 05/31/22 03:43 BP 144/57 H 05/31/22 03:43 Pulse Ox 97 05/31/22 03:43 O2 Del Method Room Air 05/30/22 20:00 Pain Score (VAS): 0 I/O: Intake & Output 05/30/22 05/31/22 05/31/22 23:59 07:59 15:59 Intake Total 1813 50 Balance 1813 50 Laboratory Tests 05/31/22 05:25 05/31/22 05:25 05/30/22 05/30/22 05/30/22 03:16 11:56 14:14 WBC 13.9 H RBC 3.88 L Hgb 9.7 L Hct 32.0 L MCV 82.5 MCH 25.0 L MCHC 30.3 L RDW 17.7 H Plt Count 358 MPV 9.2 Sodium Potassium Chloride Carbon Dioxide Anion Gap BUN Creatinine Estim Creat Clear Calc Estimated GFR Glucose POC Capillary Glucose 90 Calcium Magnesium % Saturation 19 L Total Bilirubin AST ALT Alkaline Phosphatase Total Protein Albumin 05/30/22 05/30/22 05/30/22 16:08 16:09 21:02 WBC RBC Hgb 9.1 L Hct 29.4 L MCV MCH MCHC RDW Plt Count MPV Sodium Potassium Chloride Carbon Dioxide Anion Gap BUN Creatinine Estim Creat Clear Calc Estimated GFR Glucose POC Capillary Glucose 201 H 189 H Calcium Magnesium % Saturation Total Bilirubin AST ALT Alkaline Phosphatase Total Protein Albumin 05/30/22 05/31/22 05/31/22 22:17 05:25 05:25 WBC 11.4 H RBC 3.45 L Hgb 9.0 L 8.8 L Hct 28.9 L 28.3 L MCV 82.0 MCH 25.5 L MCHC 31.1 L RDW 17.4 H Plt Count 595 H D MPV 8.8 Sodium 140 Potassium 3.6 Chloride 106 Carbon Dioxide 24 Anion Gap 10 BUN 8 L Creatinine 0.90 Estim Creat Clear Calc 68 Estimated GFR > 60 Glucose 143 H POC Capillary Glucose Calcium 7.7 L Magnesium 1.8 % Saturation Total Bilirubin 0.4 AST 16 L ALT 10 Alkaline Phosphatase 85 Total Protein 6.0 L Albumin 2.6 L 05/31/22 08:29 WBC RBC Hgb Hct MCV MCH MCHC RDW Plt Count MPV Sodium Potassium Chloride Carbon Dioxide Anion Gap BUN Creatinine Estim Creat Clear Calc Estimated GFR Glucose POC Capillary Glucose 114 H Calcium Magnesium % Saturation Total Bilirubin AST ALT Alkaline Phosphatase Total Protein Albumin Microbiology 05/29/22 10:48 Blood Blood Culture - Preliminary 05/29/22 10:48 Blood Blood Culture - Preliminary Post-procedural complaints: none Patient Feedback: Patient satisfied with anesthetic care.
[2022-05-31 12:11] LABS: Glucose Point of Care 172 mg/dl (65-105)
--- NOTE | 2022-05-31 12:17 | PM.IMPN ---
Progress Note: A&P Assessment and Plan (1) Hematemesis: Code(s): K92.0 - Hematemesis Status: Acute Assessment and Plan: -GI has been consulted. -EGD performed showed no bleeding - continue with pantoprazole. - transfuse as necessary. (2) Cerebrovascular accident: Onset Date: 2017 Code(s): I63.9 - Cerebral infarction, unspecified Status: Acute Assessment and Plan: -The patient has expressive aphasia. - patient is not answering any question for me nor is he following commands. (3) Heart failure with preserved ejection fraction: Code(s): I50.30 - Unspecified diastolic (congestive) heart failure Status: Acute Assessment and Plan: -appears euvolemic at this time Trend urine output -daily weights - No acute exacerbation - Appears to be a chronic diastolic heart failure - echo 01/01/2022 was read as the following1. Limited echocardiogram to assess atrial septum. ? 2. Agitated saline injection with and without valsalva maneuver opacified right side cardiac chambers without shunt to left side cardiac chambers. ? 3. Intact interatrial septum visualized by 2D and agitated saline imaging. (4) Insulin dependent diabetes mellitus: Status: Chronic Assessment and Plan: -Accu-Cheks AC and HS with sliding scale insulin. Check A1c if not performed in the last 6 months. - Continue with Lantus. - Fasting glucose this morning stable 143. (5) Depression with anxiety: Code(s): F41.8 - Other specified anxiety disorders Status: Acute Assessment and Plan: -Continue with risperidone -continue with Celexa -continue with hydroxyzine -stable (6) Hypertension: Code(s): I10 - Essential (primary) hypertension Status: Acute Assessment and Plan: -continue with p.r.n. hydralazine with parameters -current blood pressure stable Plan It is unclear to me why this patient was started on Cefepime overnight by the attending. There are no positive cultures including blood, urine and the CXR is normal. VSS normal and stable, and pt. does not appear to be encephalopathic or have any other signs of acute infection at this time, therefore, the Cefepime will be discontinued. Time Spent With Patient Time with patient: 15 - 25 minutes Subjective Date/time seen: 05/31/22 1505 This patient was examined at the bedside today in interval assessment. He is nonverbal. His level of responsiveness since his CVA His decreased. Currently he is sitting up in the chair watching TV. He does not follow all commands. This is his new baseline. He is now here awaiting placement in [facility]. There has been no further hematemesis. Vital signs remained stable on labs today are unremarkable. Review of Systems Review of Systems: ROS unobtainable: Yes unobtainable due to medical condition ( Nonverbal since Previous CVA.) Exam Const: General: comfortable and no acute distress HENMT: Ears: TM's normal bilaterally Face/Nose/Sinus: Normal nares present Mouth: Yes moist mucous membranes Eyes: General: appearance normal, both eyes and all related structures Sclera: sclerae normal Pupils: Equal, round and reactive pupils present EOM: EOMs intact bilaterally Neck: Neck: supple and no JVD Thyroid: abnormal thyroid Carotids: no bruits Resp: Effort & Inspection: normal respiratory effort Auscultation: clear to auscultation bilaterally Cardio: Rate: regular rate Rhythm: regular rhythm Heart sounds: no gallops, no murmurs and no rubs GI: Inspection: non-distended GI Palp: Yes Soft to palpation, No Tenderness to palpation present (GI) and No Guarding due to palpation present (GI) Auscultation: normal bowel sounds Skin: General skin exam: normal color, no rashes or lesions noted and no erythema Lesions: no lesions noted Rashes: no rashes noted Wounds: no wounds Neuro: General: No gait normal ( Unable to
[2022-05-31 17:07] LABS: Basophils Absolute Auto 0.1 K/mm3 (0.0-0.1); Basophils Percent Auto 0.6 % (0.2-1.2); Eosinophils Absolute Auto 0.4 K/mm3 (0-0.3); Eosinophils Percent Auto 3.6 % (0-4.4); Hematocrit 29.3 % (42.0-52.0); Immature Granulocyte Absolute 0.08 K/mm3 (0.00-0.031); Immature Granulocyte Percent A 0.7 % (0-0.5); Lymphocytes Absolute Auto 1.45 K/mm3 (0.9-3.2); Lymphocytes Percent Auto 12.2 % (18.3-44.2); Mean Corpuscular HGB Conc 30.7 g/dl (32-36); Mean Corpuscular Hemoglobin 25.3 pg (26-34); Mean Corpuscular Volume 82.3 fl (80-100); Mean Platelet Volume 8.7 fl (7.4-10.4); Monocytes Absolute Auto 0.9 K/mm3 (0.1-0.6); Monocytes Percent Auto 7.7 % (2.6-8.5); Neutrophils Absolute Auto 8.9 K/mm3 (1.3-6.7); Neutrophils Percent Auto 75.2 % (45.5-73.1); Platelet Count Result 601 k/mm3 (150-375); Red Blood Count 3.56 M/mm3 (4.6-6.20); Red Cell Distribution Width 17.3 % (11.5-14.5); White Blood Count 11.9 K/mm3 (4.5-10.0)
[2022-05-31 17:24] LABS: Glucose Point of Care 125 mg/dl (65-105)
[2022-05-31] MEDS: INSULIN GLARGINE (*BKC) 100 UNITS/ML 12 UNITS SUB-Q (20:37)
[2022-05-31] MEDS: risperiDONE 1 MG TABLET 2 MG PO (20:37)
[2022-05-31] MEDS: hydrOXYzine HCL 25 MG TABLET PO (20:37)
[2022-06-01] VITALS (8 sets, daily range): BP systolic 131–153; BP diastolic 53–76; PULSE 60–70; RESP 17–18; TEMP 36.3–36.9; O2SAT 99–100
[2022-06-01 05:37] LABS: Alanine Aminotransferase 11 U/L (6-50); Albumin Level 2.7 g/dL (3.5-5.1); Alkaline Phosphatase 101 U/L (38-126); Anion Gap 9 mmol/L (8-16); Aspartate Amino Transferase 15 U/L (17-59); Bilirubin,Total 0.3 mg/dL (0.2-1.3); Blood Urea Nitrogen 9 mg/dL (9-20); Calcium 7.7 mg/dL (8.4-10.2); Carbon Dioxide 23 mmol/L (22-30); Chloride 107 mmol/L (98-107); Estimated CRCL calculation 68 ml/min; Estimated Glomerular Filt Rate > 60; Glucose 89 mg/dL (65-110); Magnesium 1.5 mg/dL (1.6-2.3); Potassium 3.7 mmol/L (3.4-5.0); Sodium 139 mmol/L (137-145)
--- NOTE | 2022-06-01 08:09 | PC.NURSE ---
left message with pharmacy about missing 0900 risperidone. will give when received
[2022-06-01] MEDS: SILVERGEL (ELTA) 45 ML 1 APPLIC TOPICAL (08:10)
[2022-06-01] MEDS: CITALOPRAM HYDROBROMIDE 10 MG TABLET 30 MG PO (08:10)
[2022-06-01] MEDS: FERROUS SULFATE 324 MG TABLET PO (08:10)
[2022-06-01] MEDS: PANTOPRAZOLE SODIUM IV 40 MG VIAL IV PUSH (08:10)
[2022-06-01 08:38] LABS: Glucose Point of Care 76 mg/dl (65-105)
--- NOTE | 2022-06-01 10:20 | PCDIET ---
left message with pharmacy to let him know that I was sent 0.5 risperidone. I need 1.5 dose. Will give when received.
[2022-06-01] MEDS: risperiDONE 0.5 MG TABLET 1.5 MG PO (10:58)
[2022-06-01 12:09] LABS: Glucose Point of Care 108 mg/dl (65-105)
[2022-06-01] MEDS: SODIUM CHLORIDE 0.9% IV 1,000 ML 125 ML IV CONT ×2 (12:39→19:35)
--- NOTE | 2022-06-01 13:35 | PM.IMPN ---
Progress Note: A&P Assessment and Plan (1) Hematemesis: Code(s): K92.0 - Hematemesis Status: Resolved Assessment and Plan: No further hematemesis and pt. has stable H&H. Resolved. (2) Cerebrovascular accident: Onset Date: 2017 Code(s): I63.9 - Cerebral infarction, unspecified Status: Chronic Assessment and Plan: Chronic expressive aphasia. Repeats only, Yes Maam for any questions asked. (3) Heart failure with preserved ejection fraction: Code(s): I50.30 - Unspecified diastolic (congestive) heart failure Status: Chronic Assessment and Plan: Euvolemic No signs of exacerbation. Last ECHO 12/2021 demonstrated: Normal LVSF with EF of 65-70% with Grade 1 Diastolic dysfunction. Continue Daily weights (4) Insulin dependent diabetes mellitus: Status: Chronic Assessment and Plan: Hgb A1C is 7.4 Continue SSI with glucose checks AC and HS Continue Diabetic diet Continue hypoglycemic protocol. (5) Depression with anxiety: Code(s): F41.8 - Other specified anxiety disorders Status: Chronic Assessment and Plan: Continue home medications. (6) Hypertension: Code(s): I10 - Essential (primary) hypertension Status: Acute Assessment and Plan: Continue current regimen. BP thus far has been stable. Plan 05/31/22 It is unclear to me why this patient was started on Cefepime overnight by the attending. There are no positive cultures including blood, urine and the CXR is normal. VSS normal and stable, and pt. does not appear to be encephalopathic or have any other signs of acute infection at this time, therefore, the Cefepime will be discontinued. 06/01/22 It was determined that the Cefepime was started on this patient in error as it should have been started on another patient with UTI that was not yet treated and the pt. asked about when her Cefepime will be started. Both patients admitted on the same day. Time Spent With Patient Time with patient: 15 - 25 minutes Subjective Date/time seen: 06/01/22 1000 Pt was examined at the bedside today and appears to be in no acute distress. He is lying supine and today speaks only the words, Yes maam to me. He does not attempt to answer any other questions at this time and does not appear to be in any distress. He is awaiting placement. Review of Systems Review of Systems: ROS unobtainable: Yes unobtainable due to medical condition Exam Const: General: comfortable and no acute distress HENMT: Ears: TM's normal bilaterally Face/Nose/Sinus: Normal nares present Mouth: Yes moist mucous membranes Eyes: General: appearance normal, both eyes and all related structures Sclera: sclerae normal Pupils: Equal, round and reactive pupils present EOM: EOMs intact bilaterally Neck: Neck: supple and no JVD Thyroid: abnormal thyroid Carotids: no bruits Resp: Effort & Inspection: normal respiratory effort Auscultation: clear to auscultation bilaterally Cardio: Rate: regular rate Rhythm: regular rhythm Heart sounds: no gallops, no murmurs and no rubs GI: Inspection: non-distended Auscultation: normal bowel sounds Skin: General skin exam: normal color, no rashes or lesions noted, no erythema, No lesion noted and No rashes noted Lesions: no lesions noted Rashes: no rashes noted Wounds: no wounds Neuro: General: No gait normal ( Unable to test due to recent right AKA) Cranial nerves: Yes Equal, round and reactive pupils present Speech: No normal speech ( nonverbal) Sensory Exam: No normal sensation ( unable to assess as patient m) Other: Patient does not follow Commands. Extrem: General: normal exam except as noted ( right AKA) Psych: Other: Unable to assess. Objective Data Vital Signs Vital Signs: Vital Signs - 24 hr 05/31/22 14:00 05/31/22 18:00 05/31/22 19:41 Temperature 97.3 F L 97.2 F L Pulse Rate 71 70 70 Respirat
[2022-06-01 17:15] LABS: Glucose Point of Care 122 mg/dl (65-105)
[2022-06-01] MEDS: INSULIN GLARGINE (*BKC) 100 UNITS/ML 12 UNITS SUB-Q (20:43)
[2022-06-01] MEDS: hydrOXYzine HCL 25 MG TABLET PO (20:48)
[2022-06-01] MEDS: risperiDONE 1 MG TABLET 2 MG PO (21:13)
[2022-06-02 03:35] VITALS: BP 152/61; PULSE 72; RESP 17; TEMP 36.4; O2SAT 98
[2022-06-02 06:00] LABS: Basophils Absolute Auto 0.1 K/mm3 (0.0-0.1); Basophils Percent Auto 0.8 % (0.2-1.2); Eosinophils Absolute Auto 0.4 K/mm3 (0-0.3); Eosinophils Percent Auto 3.6 % (0-4.4); Hemoglobin 8.7 g/dL (14.0-18.0); Immature Granulocyte Absolute 0.05 K/mm3 (0.00-0.031); Immature Granulocyte Percent A 0.4 % (0-0.5); Lymphocytes Percent Auto 11.8 % (18.3-44.2); Mean Corpuscular HGB Conc 31.1 g/dl (32-36); Mean Corpuscular Hemoglobin 24.9 pg (26-34); Mean Platelet Volume 8.9 fl (7.4-10.4); Monocytes Percent Auto 8.1 % (2.6-8.5); Neutrophils Absolute Auto 8.9 K/mm3 (1.3-6.7); Neutrophils Percent Auto 75.3 % (45.5-73.1); Platelet Count Result 578 k/mm3 (150-375); Red Cell Distribution Width 17.4 % (11.5-14.5); White Blood Count 11.9 K/mm3 (4.5-10.0)
[2022-06-02 06:08] LABS: Alanine Aminotransferase 10 U/L (6-50); Albumin Level 2.6 g/dL (3.5-5.1); Alkaline Phosphatase 91 U/L (38-126); Anion Gap 9 mmol/L (8-16); Aspartate Amino Transferase 15 U/L (17-59); Bilirubin,Total 0.2 mg/dL (0.2-1.3); Blood Urea Nitrogen 5 mg/dL (9-20); Calcium 7.7 mg/dL (8.4-10.2); Carbon Dioxide 25 mmol/L (22-30); Chloride 105 mmol/L (98-107); Estimated CRCL calculation 75 ml/min; Estimated Glomerular Filt Rate > 60; Glucose 62 mg/dL (65-110); Magnesium 1.4 mg/dL (1.6-2.3); Potassium 3.3 mmol/L (3.4-5.0); Sodium 139 mmol/L (137-145)
--- NOTE | 2022-06-02 06:55 | PC.NURSE ---
Ramona (hospitalist) called to inform this RN that pt blood glucose was 62. Pt tolerated pudding and orange juice. Will pass this information on in morning report.
[2022-06-02 08:00] VITALS: BP 156/74; PULSE 65; RESP 14; TEMP 36.5; O2SAT 98
[2022-06-02] MEDS: MAGNESIUM SULF 2 GM/WATER 50ML 2 GM/50 ML BAG IVPB (08:32)
[2022-06-02] MEDS: FERROUS SULFATE 324 MG TABLET PO (08:36)
[2022-06-02] MEDS: CITALOPRAM HYDROBROMIDE 10 MG TABLET 30 MG PO (08:37)
[2022-06-02] MEDS: PANTOPRAZOLE SODIUM IV 40 MG VIAL IV PUSH (08:38)
[2022-06-02] MEDS: SILVERGEL (ELTA) 45 ML 1 APPLIC TOPICAL (08:39)
[2022-06-02 08:42] LABS: Glucose Point of Care 88 mg/dl (65-105)
[2022-06-02] MEDS: risperiDONE 0.5 MG TABLET 1.5 MG PO (08:43)
[2022-06-02 12:00] VITALS: BP 140/72; PULSE 62; RESP 16; TEMP 36.6; O2SAT 98
[2022-06-02 12:16] LABS: Glucose Point of Care 87 mg/dl (65-105)
--- NOTE | 2022-06-02 12:41 | PM.IMPN ---
Progress Note: A&P Assessment and Plan (1) Hematemesis: Code(s): K92.0 - Hematemesis Status: Resolved Assessment and Plan: No further hematemesis and pt. has stable H&H. Resolved. (2) Cerebrovascular accident: Onset Date: 2017 Code(s): I63.9 - Cerebral infarction, unspecified Status: Chronic Assessment and Plan: Chronic expressive aphasia. Repeats only, Yes Maam for any questions asked. (3) Heart failure with preserved ejection fraction: Code(s): I50.30 - Unspecified diastolic (congestive) heart failure Status: Chronic Assessment and Plan: Euvolemic No signs of exacerbation. Last ECHO 12/2021 demonstrated: Normal LVSF with EF of 65-70% with Grade 1 Diastolic dysfunction. Continue Daily weights (4) Insulin dependent diabetes mellitus: Status: Chronic Assessment and Plan: Hgb A1C is 7.4 Continue SSI with glucose checks AC and HS Continue Diabetic diet Continue hypoglycemic protocol. (5) Depression with anxiety: Code(s): F41.8 - Other specified anxiety disorders Status: Chronic Assessment and Plan: Continue home medications. (6) Hypertension: Code(s): I10 - Essential (primary) hypertension Status: Acute Assessment and Plan: Continue current regimen. BP thus far has been stable. Plan 05/31/22 It is unclear to me why this patient was started on Cefepime overnight by the attending. There are no positive cultures including blood, urine and the CXR is normal. VSS normal and stable, and pt. does not appear to be encephalopathic or have any other signs of acute infection at this time, therefore, the Cefepime will be discontinued. 06/01/22 It was determined that the Cefepime was started on this patient in error as it should have been started on another patient with UTI that was not yet treated and the pt. asked about when her Cefepime will be started. Both patients admitted on the same day. Time Spent With Patient Time with patient: 15 - 25 minutes Subjective Date/time seen: 06/02/22 0841 Pt. is examined at the bedside this morning. He is not speaking today and appears to be at his baseline. We are currently awaiting placement at SNF. He is medically clear. He has no obvious distress today and no obvious needs. Review of Systems Review of Systems: ROS unobtainable: Yes unobtainable due to medical condition Exam Const: General: comfortable and no acute distress HENMT: Ears: TM's normal bilaterally Face/Nose/Sinus: Normal nares present Mouth: Yes moist mucous membranes Eyes: General: appearance normal, both eyes and all related structures Sclera: sclerae normal Pupils: Equal, round and reactive pupils present EOM: EOMs intact bilaterally Neck: Neck: supple and no JVD Thyroid: abnormal thyroid Carotids: no bruits Resp: Effort & Inspection: normal respiratory effort Auscultation: clear to auscultation bilaterally Cardio: Rate: regular rate Rhythm: regular rhythm Heart sounds: no gallops, no murmurs and no rubs GI: Inspection: non-distended Auscultation: normal bowel sounds Skin: General skin exam: normal color, no rashes or lesions noted, no erythema, No lesion noted and No rashes noted Lesions: no lesions noted Rashes: no rashes noted Wounds: no wounds Neuro: General: No gait normal ( Unable to test due to recent right AKA) Cranial nerves: Yes Equal, round and reactive pupils present Speech: No normal speech ( nonverbal) Sensory Exam: No normal sensation ( unable to assess as patient m) Other: Patient does not follow Commands. Extrem: General: normal exam except as noted ( right AKA) Psych: Other: Unable to assess. Objective Data Vital Signs Vital Signs: Vital Signs - 24 hr 06/01/22 14:02 06/01/22 18:17 06/01/22 19:51 Temperature 98.4 F 98.3 F 97.9 F Pulse Rate 70 67 63 Respiratory Rate 18 18 18 Blood Pressure 144/67 H 153/76 H
[2022-06-02] MEDS: SODIUM CHLORIDE 0.9% IV 1,000 ML 125 ML IV CONT ×2 (15:36→20:07)
[2022-06-02 16:00] VITALS: BP 139/72; PULSE 62; RESP 14; TEMP 36.9; O2SAT 99
[2022-06-02 17:24] LABS: Glucose Point of Care 64 mg/dl (65-105)
[2022-06-02 17:48] LABS: Glucose Point of Care 70 mg/dl (65-105)
[2022-06-02 20:00] VITALS: BP 158/78; PULSE 71; RESP 18; TEMP 37; O2SAT 100
[2022-06-02] MEDS: hydrOXYzine HCL 25 MG TABLET PO (20:07)
[2022-06-02] MEDS: risperiDONE 1 MG TABLET 2 MG PO (20:07)
[2022-06-02 20:42] LABS: Glucose Point of Care 137 mg/dl (65-105)
[2022-06-02 23:35] VITALS: BP 149/74; PULSE 64; RESP 18; TEMP 36.7; O2SAT 98
[2022-06-03 03:50] VITALS: BP 126/56; PULSE 62; RESP 17; TEMP 36.8; O2SAT 100
[2022-06-03] MEDS: SODIUM CHLORIDE 0.9% IV 1,000 ML 125 ML IV CONT ×2 (05:26→08:50)
[2022-06-03 06:23] LABS: Basophils Absolute Auto 0.1 K/mm3 (0.0-0.1); Basophils Percent Auto 1.6 % (0.2-1.2); Eosinophils Absolute Auto 0.5 K/mm3 (0-0.3); Hematocrit 28.1 % (42.0-52.0); Hemoglobin 8.4 g/dL (14.0-18.0); Immature Granulocyte Absolute 0.05 K/mm3 (0.00-0.031); Immature Granulocyte Percent A 0.6 % (0-0.5); Lymphocytes Absolute Auto 1.45 K/mm3 (0.9-3.2); Lymphocytes Percent Auto 16.1 % (18.3-44.2); Mean Corpuscular HGB Conc 29.9 g/dl (32-36); Mean Corpuscular Hemoglobin 25.1 pg (26-34); Mean Corpuscular Volume 84.1 fl (80-100); Monocytes Absolute Auto 0.8 K/mm3 (0.1-0.6); Monocytes Percent Auto 9.1 % (2.6-8.5); Neutrophils Percent Auto 66.6 % (45.5-73.1); Platelet Count Result 540 k/mm3 (150-375); Red Blood Count 3.34 M/mm3 (4.6-6.20); Red Cell Distribution Width 17.9 % (11.5-14.5)
[2022-06-03 06:37] LABS: Alanine Aminotransferase 9 U/L (6-50); Albumin Level 2.5 g/dL (3.5-5.1); Alkaline Phosphatase 91 U/L (38-126); Anion Gap 6 mmol/L (8-16); Aspartate Amino Transferase 16 U/L (17-59); Bilirubin,Total 0.3 mg/dL (0.2-1.3); Blood Urea Nitrogen 5 mg/dL (9-20); Calcium 7.7 mg/dL (8.4-10.2); Carbon Dioxide 25 mmol/L (22-30); Chloride 108 mmol/L (98-107); Estimated CRCL calculation 68 ml/min; Estimated Glomerular Filt Rate > 60; Glucose 73 mg/dL (65-110); Magnesium 1.6 mg/dL (1.6-2.3); Potassium 3.9 mmol/L (3.4-5.0); Sodium 139 mmol/L (137-145)
[2022-06-03 07:27] LABS: Acanthocytes 1+ (NORMAL); Anisocytosis 1+ (NORMAL); Hypochromasia 1+ (NORMAL); Platelet Estimate Increased (Adequate)
[2022-06-03 07:28] LABS: Schistocytes None Seen (NORMAL)
[2022-06-03 08:14] LABS: Glucose Point of Care 74 mg/dl (65-105)
--- NOTE | 2022-06-03 08:45 | PM.DS ---
DS: Admitting Diagnosis Discharge Date 06/03/22 Admitting Diagnosis Hematemesis, Cerebral Infarction, HFpEF, DM, Depression and Anxiety, HTN DS: Discharge Diagnosis Discharge Diagnosis (1) Hematemesis: Code(s): K92.0 - Hematemesis Status: Resolved Assessment and Plan: No further hematemesis and pt. has stable H&H. Resolved. EGD was negative for any acute findings. (2) Cerebrovascular accident: Onset Date: 2017 Code(s): I63.9 - Cerebral infarction, unspecified Status: Chronic Assessment and Plan: Chronic expressive aphasia. Repeats only, Yes Maam for any questions asked. (3) Heart failure with preserved ejection fraction: Code(s): I50.30 - Unspecified diastolic (congestive) heart failure Status: Chronic Assessment and Plan: Euvolemic No signs of exacerbation. Last ECHO 12/2021 demonstrated: Normal LVSF with EF of 65-70% with Grade 1 Diastolic dysfunction. Continue Daily weights (4) Insulin dependent diabetes mellitus: Status: Chronic Assessment and Plan: Hgb A1C is 7.4 Continue SSI with glucose checks AC and HS Continue Diabetic diet Continue hypoglycemic protocol. (5) Depression with anxiety: Code(s): F41.8 - Other specified anxiety disorders Status: Chronic Assessment and Plan: Continue home medications. (6) Hypertension: Code(s): I10 - Essential (primary) hypertension Status: Acute Assessment and Plan: Continue current regimen. BP thus far has been stable. DS: Summary Hospital Course Reason for hospitalization: Nausea and Vomiting with Hematemesis Hospital Course: This 61 year old male patient with significant PMH of CVA with severe expressive aphasia, and most recently an AKA 10 days ago to the [facility], not on any anti-platelet or blood thinning agent, presented to the ER on 05/29/22 with N/V/and what appeared to be hematemesis. Labs were unremarkable with exception of WBC count of 14.8 initially only, and Hgb drop from 10.4-->9.5. The pt. was admitted, GI consulted and he underwent an EGD on 05/30/22 that demonstrated no abnormal findings, although a mild, healed gastritis was a possibility. He was evaluated by the wound nurse during this hospitalization regarding a wound to his left heel, and the recommendations are to apply silver gel and a dry dressing. This will be continued upon discharge. His course of assessment and treatment has otherwise been uneventful thus far and his daughter, who is his POA, is requesting placement at a different facility other than where he was. He has been accepted at [facility] and will be going there today. Status at Discharge Functional status at discharge: bed bound Overall status at discharge: patient is back to baseline Time Spent with Patient Time attestation: Total time spent providing and/or coordinating discharge services: Time spent: Greater than 30 minutes Specific discharge activities: Discharge medications, discharge facility, follow up Exam Const: General: comfortable and no acute distress HENMT: Ears: TM's normal bilaterally Face/Nose/Sinus: Normal nares present Mouth: Yes moist mucous membranes Eyes: General: appearance normal, both eyes and all related structures Sclera: sclerae normal Pupils: Equal, round and reactive pupils present EOM: EOMs intact bilaterally Neck: Neck: supple and no JVD Thyroid: abnormal thyroid Carotids: no bruits Resp: Effort & Inspection: normal respiratory effort Auscultation: clear to auscultation bilaterally Cardio: Rate: regular rate Rhythm: regular rhythm Heart sounds: no gallops, no murmurs and no rubs GI: Inspection: non-distended Auscultation: normal bowel sounds Skin: General skin exam: normal color, no rashes or lesions noted, no erythema, No lesion noted and No rashes noted Lesions: no lesions noted Rashes: no rashes noted Wounds: no wounds Neuro:
[2022-06-03] MEDS: CITALOPRAM HYDROBROMIDE 10 MG TABLET 30 MG PO (08:51)
[2022-06-03] MEDS: PANTOPRAZOLE SODIUM IV 40 MG VIAL IV PUSH (08:51)
[2022-06-03] MEDS: FERROUS SULFATE 324 MG TABLET PO (08:51)
[2022-06-03] MEDS: risperiDONE 0.5 MG TABLET 1.5 MG PO (08:51)
[2022-06-03] MEDS: SILVERGEL (ELTA) 45 ML 1 APPLIC TOPICAL (08:52)
[2022-06-03 09:22] LABS: EDCOVIDSCREEN Negative (Negative)
[2022-06-03 10:25] VITALS: BP 135/65; PULSE 78; RESP 18; O2SAT 95
[2022-06-03 11:55] LABS: Glucose Point of Care 87 mg/dl (65-105)
== END 2022-06-03 12:30 ==
LOC: ANHED 14:17 → ANH2MED 17:43
PROVIDERS: Internal Medicine Gastroenterology; Nurse Practitioner; Admitting Provider Internal Medicine; Emergency Provider Emergency Medicine; PCP Internal Medicine; Visit Provider Nurse Practitioner Adult Health
PROC: 0DJ08ZZ Inspection of Upper Intestinal Tract, Via Natural or Artificial Opening Endoscopic (ICD-10-PCS; CPT 43235; principal; 2022-05-30 14:30)
DX: K92.0 Hematemesis (principal); I69.320 Aphasia following cerebral infarction; I69.391 Dysphagia following cerebral infarction; I69.359 Hemiplegia and hemiparesis following cerebral infarction affecting unspecified side; I50.30 Unspecified diastolic (congestive) heart failure; Z89.611 Acquired absence of right leg above knee; I13.0 Hypertensive heart and chronic kidney disease with heart failure and stage 1 through stage 4 chronic kidney disease, or unspecified chronic kidney disease; E11.22 Type 2 diabetes mellitus with diabetic chronic kidney disease; N18.9 Chronic kidney disease, unspecified; D63.8 Anemia in other chronic diseases classified elsewhere; F41.8 Other specified anxiety disorders; I25.10 Atherosclerotic heart disease of native coronary artery without angina pectoris; Z95.5 Presence of coronary angioplasty implant and graft; I25.2 Old myocardial infarction; R94.31 Abnormal electrocardiogram [ECG] [EKG]; Z20.822 Contact with and (suspected) exposure to COVID-19; Z79.4 Long term (current) use of insulin; Z79.1 Long term (current) use of non-steroidal anti-inflammatories (NSAID); Z79.899 Other long term (current) drug therapy; Z84.89 Family history of other specified conditions; Z82.49 Family history of ischemic heart disease and other diseases of the circulatory system
CPT/HCPCS: 43235; 36415; 51701; 71045; 80053; 81001; 82607; 82728; 82746; 82948; 83036; 83540; 83550; 83615; 83690; 83735; 84100; 85014; 85018; 85025; 85027; 85610; 85730; 86850; 86900; 86901; 87040; 87147; 87181; 87186; 87426; 93005; 96361; 96374; 96375; 97161; 97165; 99285; A9270; C9113; C9803; G0378; J0692; J1756; J1815; J2704; J3475; J7030; J7050; J7120; U0003; U0005

== ENCOUNTER 2023-02-28 18:35 | Inpatient (IN) | payer OTHER, SELFPAY ==
--- NOTE | ~2023-02-28 | XR_ITS ---
XR chest 1V portable 03/01/2023 00:02 Indication: Infiltrate seen on CT. Procedure: AP portable chest Comparison: CT dated 02/28/2023 Findings: Status post median sternotomy for CABG. No focal air space disease, pulmonary edema, pleura l effusion or suspected pneumothorax. There is a coronary stent. Impression: 1: No acute cardiopulmonary disease. Reviewed, dictated and finalized at location A. Impression: 1: No acute cardiopulmonary disease.
--- NOTE | ~2023-02-28 | XR_ITS ---
XR abdomen/kub 1V 03/02/2023 11:02 Indication: Fecal impaction Procedure: KUB Comparison: CT dated 02/28/2023 Findings: Bowel pattern nonobstructive. Moderate retained fecal material in the rectum. No abnormal c alcifications. There is atherosclerosis. There is a right total hip arthroplasty. Impression: 1: Moderate retained fecal material in the rectum. Nonobstructive bowel pattern. Reviewed, dictated and finalized at location A. Impression: 1: Moderate retained fecal material in the rectum. Nonobstructive bowel pattern .
--- NOTE | ~2023-02-28 | XR_ITS ---
Supine and upright views of the abdomen Clinical history: Constipation COMPARISON: 03/02/2023 Findings: Bowel gas pattern is nonspecific. No evidence for obstruction or free air. Prominent stool at the rectum noted. No abnormal mass lesion or calcification is seen. Right arthroplasty in place. Impression: Prominent stool again noted at the rectum. Reviewed, dictated and finalized at [facility]. Impression: Prominent stool again noted at the rectum.
--- NOTE | ~2023-02-28 | CT_ITS ---
EXAMINATION: CT abdomen pelvis w con DATE: 02/28/2023 22:33 INDICATION: Nausea, vomiting and diarrhea. History of CVA. Nonverbal. TECHNIQUE: Computed tomography (CT) of the abdomen and pelvis was performed with 100 cc Omnipaque 350 intravenous contrast. The dose-length product was 638.20 mGy-cm. Automated exposure control and iter ative reconstruction technique were employed. COMPARISON: CT dated 01/01/2022 FINDINGS: There is bilateral lower lobe airspace disease, suspicious for pneumonia. Heart size normal . No significant pleural or pericardial effusion. Fatty infiltration of the liver. The spleen, pancre as, adrenal glands and kidneys are unremarkable. Gallbladder is present. Nonobstructive bowel gas pat tern. Moderate colonic fecal loading. There is fecal loading of the rectum which is mildly thickened. Small hiatal hernia. There are surgical changes of right inguinal hernia repair. Status post right h ip arthroplasty. No acute osseous abnormality. IMPRESSION: 1. Mildly thickened rectum with fecal loading. Consider stercoral proctitis. 2: Patchy ill-defined groundglass infiltrates of the lower lobes, left greater than right, suspicious for pneumonia. Consider aspiration in the appropriate clinical setting. Reviewed, dictated and finalized at location A. IMPRESSION: 1. Mildly thickened rectum with fecal loading. Consider stercoral proctitis. 2: Patchy ill-defined groundglass infiltrates of the lower lobes, left greater than right, suspicious for pneumonia. Consider aspiration in the appropriate cl inical setting.
[2023-02-28 18:38] VITALS: BP 171/88; PULSE 107; RESP 22; TEMP 37.7; O2SAT 99
--- NOTE | 2023-02-28 19:27 | ED.NAVMDI ---
HPI - Nausea/Vomiting/Diarrhea General Chief complaint: Nausea/Vomiting/Diarrhea <XAVIER Constantino Last Filed: 03/01/23 01:48> Stated complaint: n/v <XAVIER Constantino Last Filed: 03/01/23 01:48> Time Seen by Provider: 02/28/23 18:40 <XAVIER Constantino Last Filed: 03/01/23 01:48> Source: EMS, RN notes reviewed and old records reviewed <XAVIER Constantino Last Filed: 03/01/23 01:48> Mode of arrival: EMS <XAVIER Constantino Last Filed: 03/01/23 01:48> Limitations: language barrier and clinical condition <XAVIER Constantino Last Filed: 03/01/23 01:48> History of Present Illness HPI Narrative: Patient is a 62 y/o male, w/ PMH of CVA with expressive aphasia, CAD, HTN, DMII, anemia, who presents to the ED via EMS with report of N/V. Patient is a resident of [facility]. He is essentially nonverbal at baseline. Per nursing report, patient has had vomiting and diarrhea for the last 2 days. They report he has been increasingly lethargic and had a poor appetite. Patient unable to voice any other concerns. No known fever. <XAVIER Constantino Last Filed: 03/01/23 01:48> Related Data Home medications: Home Medications Medication Instructions Recorded Confirmed acetaminophen 500 mg tablet 500 mg PO Q4H PRN Pain 10/08/21 05/29/22 famotidine 20 mg tablet 20 mg PO DAILY 10/08/21 05/29/22 ferrous sulfate 325 mg (65 mg 325 mg PO DAILY 10/08/21 05/29/22 iron) tablet insulin detemir U-100 100 unit/mL 12 unit subcut HS 10/08/21 05/29/22 (3 mL) subcutaneous pen (Levemir FlexTouch U-100 Insulin) risperidone 2 mg tablet 2 mg PO HS 10/08/21 05/29/22 Novolog U-100 Insulin aspart 7 units subcut TIDWM 12/27/21 05/29/22 mupirocin 2 % topical ointment 1 applic topical BID 12/30/21 05/29/22 atropine 1 % eye drops 2 drp sublingual Q4H PRN Secretions 05/20/22 05/29/22 bisacodyl 10 mg rectal suppository 10 mg RECTAL DAILY PRN Constipation 05/20/22 05/29/22 cholecalciferol (vitamin D3) 25 25 mcg PO DAILY 05/20/22 05/29/22 mcg (1,000 unit) capsule citalopram 10 mg tablet 30 mg PO DAILY 05/20/22 05/29/22 hydroxyzine HCl 25 mg tablet 25 mg PO HS 05/20/22 05/29/22 risperidone 1 mg tablet 1.5 mg PO DAILY 05/20/22 05/29/22 acetaminophen 650 mg rectal 650 mg RECTAL Q4-5H PRN Fever Or 05/29/22 05/29/22 suppository Pain morphine 100 mg/5 mL oral 5 mg PO Q4-5H PRN Pain 05/29/22 05/29/22 concentrate <Janie Reynaga PA-C - Last Filed: 03/01/23 01:48> Allergies/Adverse reactions: Allergies Allergy/AdvReac Type Severity Reaction Status Date / Time No Known Allergies Allergy Verified 05/30/22 09:03 <Janie Reynaga PA-C - Last Filed: 03/01/23 01:48> Review of Systems Review of Systems: ROS unobtainable: Yes unobtainable due to medical condition <Janie Reynaga PA-C - Last Filed: 03/01/23 01:48> [facility] Past Medical History Medical History: Medical History Cerebrovascular accident (2018) He was left nonverbal with dysphagia and interactions, unable to walk. Chronic anemia Chronic kidney disease Closed displaced fracture of right femoral neck Coronary artery disease Depression with anxiety Dysphagia Heart failure with preserved ejection fraction Hypertension Insulin dependent diabetes mellitus Myocardial infarction <Janie Reynaga PA-C - Last Filed: 03/01/23 01:48> Surgical History Surgical History: Surgical History History of cardiac catheterization History of coronary artery stent placement History of open heart surgery History of open reduction and internal fixation (ORIF) procedure Repair of right hip fracture. <Janie Reynaga PA-C - Last Filed: 03/01/23 01:48> Family History Family History: Family History (Reviewed 05/30
[2023-02-28] MEDS: SODIUM CHLORIDE 0.9% IV 1,000 ML 999 ML IV CONT (20:43)
[2023-02-28 21:31] VITALS: TEMP 37.3
[2023-02-28 23:19] LABS: Lactic Acid Reflex 2.3 mmol/L (0.7-2.0)
[2023-02-28 23:37] LABS: Alkaline Phosphatase 129 U/L (38-126); Anion Gap 10 mmol/L (8-16); Aspartate Amino Transferase 23 U/L (17-59); Bilirubin,Total 1.1 mg/dL (0.2-1.3); Blood Urea Nitrogen 13 mg/dL (9-20); Carbon Dioxide 23 mmol/L (22-30); Chloride 105 mmol/L (98-107); Estimated CRCL calculation 74 ml/min; Estimated Glomerular Filt Rate > 60; Glucose 177 mg/dL (65-110); Lipase 11 U/L (23-300); Potassium 3.9 mmol/L (3.4-5.0); Sodium 138 mmol/L (137-145)
[2023-02-28 23:38] LABS: Alanine Aminotransferase 16 U/L (6-50)
[2023-03-01] VITALS (11 sets, daily range): BP systolic 128–192; BP diastolic 83–109; PULSE 61–91; RESP 16–18; TEMP 36.4–36.6; O2SAT 96–99
--- NOTE | 2023-03-01 00:10 | PC.NURSE ---
This RN attempted to do a soap suds enema per EDP Janie. Pt was unable to retain liquid. Soap suds enema ineffective. EDP Janie made aware.
[2023-03-01] MEDS: SODIUM CHLORIDE 0.9% IV 1,000 ML 999 ML IV CONT (00:24)
[2023-03-01 00:33] LABS: Appearance Urine Clear (Clear); Bacteria Urine None Seen /hpf; Bilirubin Urine Negative (Negative); Blood Urine 1+ (Negative); Color Urine Dark Yellow (Yellow); Glucose Urine UA 2+ mg/dL (Negative); Ketones Urine 3+ mg/dL (Negative); Leukocyte Esterase Ur Negative LEU/UL (Negative); Need Manual Microscopic Reviewed; Nitrate Urine Negative (Negative); Protein Urine 2+ mg/dL (Negative); Specific Grav Ur 1.028 (1.001-1.035); Squamous Epithelial Cell Urine None seen /hpf (Few); WBC Urine 0-5 /hpf; pH Urine 5.5 (5.0-9.0)
[2023-03-01 00:34] LABS: Add Urine Microscopic? YES
[2023-03-01 00:58] LABS: Hematocrit 37.6 % (42.0-52.0); Mean Corpuscular Hemoglobin 27.9 pg (26-34); Mean Corpuscular Volume 87.4 fl (80-100)
[2023-03-01 00:59] LABS: Mean Corpuscular HGB Conc 31.9 g/dl (32-36); Mean Platelet Volume 9.3 fl (7.4-10.4); Platelet Count Result 420 k/mm3 (150-375); Red Cell Distribution Width 13.1 % (11.5-14.5)
[2023-03-01 01:02] LABS: Basophils Percent Auto 0.5 % (0.2-1.2); Eosinophils Percent Auto 0.5 % (0-4.4); Immature Granulocyte Percent A 0.3 % (0-0.5); Lymphocytes Percent Auto 5.2 % (18.3-44.2); Monocytes Percent Auto 6.3 % (2.6-8.5); Neutrophils Percent Auto 87.2 % (45.5-73.1)
[2023-03-01 01:04] LABS: Immature Granulocyte Absolute 0.04 K/mm3 (0.00-0.031)
[2023-03-01 01:05] LABS: Basophils Absolute Auto 0.1 K/mm3 (0.0-0.1); Lymphocytes Absolute Auto 0.68 K/mm3 (0.9-3.2); Monocytes Absolute Auto 0.8 K/mm3 (0.1-0.6); Neutrophils Absolute Auto 11.2 K/mm3 (1.3-6.7)
[2023-03-01 02:13] LABS: Reflex Lactic Acid Yes or No Add Lactic
[2023-03-01] MEDS: PIPERACILLN/TAZ 3.375GM/NS50ML 3.375 GM/50 ML BAG IVPB ×4 (02:20→20:49)
[2023-03-01] MEDS: LACTULOSE 20 GM/30 ML UDC PO (02:21)
[2023-03-01] MEDS: ONDANSETRON INJ 4 MG/2 ML VIAL IV PUSH (02:21)
[2023-03-01 03:31] LABS: Lactic Acid 2.6 mmol/L (0.7-2.0)
--- NOTE | 2023-03-01 04:05 | ADMGEN ---
This patient, Dilshad Power, was admitted to Medical Room 346-01. Patient/family oriented to hospital policies and general routines including ID bracelet, bed and alarms, visiting hours, pain management, procedures, bathroom and other care routines, personal items, smoking policy, room service/diet, and visiting hours. Information on how to activate the Rapid Response Team has been discussed. Patient/Family are encouraged to report perceived risks to care and to ask questions if they do not understand what they are told or what they should do.
[2023-03-01] MEDS: SODIUM CHLORIDE 0.9% IV 1,000 ML 100 ML IV CONT ×2 (04:18→15:49)
--- NOTE | 2023-03-01 04:29 | PM.IMHP ---
H&P: HPI History of Present Illness Date/Time: 03/01/23 04:29 Chief Complaint: Nausea and vomiting Narrative: 62-year-old male with a past medical history of CVA with expressive aphasia, coronary disease, hypertension, type 2 diabetes mellitus and chronic anemia presented to the ER from the nursing home home with nausea vomiting. Patient is nonverbal at baseline. long-term staff reports patient had vomiting and diarrhea for 2 days. They report the patient had been lethargic and poor appetite. In the ER the patient was noted to be picking at his rectum and had stool covering his hands. Imaging in the ER did demonstrate mildly distended stomach containing fluid and air. Large amount of stool in the rectum with thickening of the rectal wall consistent with probable stercoral colitis. Possible atelectasis versus infiltrate noted above lung bases left greater than right. Small hiatal hernia was also noted. In the ER, a soapsuds enema was attempted but patient tolerated the procedure poorly and was unable to retain contents of the enema. Patient is unable to provide any meaningful a input to the and review due to his aphasia. Review of Systems Review of Systems: ROS unobtainable: Yes unobtainable due to medical condition (Expressive aphasia) [facility] Past Medical History Medical History (Updated 03/01/23 @ 08:50 by Ronel Prather DO) Cerebrovascular accident (2018) He was left nonverbal with dysphagia and contractures, unable to walk. 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 No alcohol, tobacco, or drug use. Surrogate decision maker: Esperanza Dos Santos, daughter. Code status: DNR/DNI Smoking status: Unknown if ever smoked Alcohol intake: unknown Substance use: unknown Spiritual care concerns: No Meds Home Medications and Allergies Home Medications Medication Instructions Recorded Confirmed Type acetaminophen 500 mg tablet 500 mg PO Q4H PRN Pain 10/08/21 03/01/23 History famotidine 20 mg tablet 20 mg PO DAILY 10/08/21 03/01/23 History ferrous sulfate 325 mg (65 mg 325 mg PO BID 10/08/21 03/01/23 History iron) tablet insulin detemir U-100 100 unit/mL 12 unit subcut HS 10/08/21 03/01/23 History (3 mL) subcutaneous pen (Levemir FlexTouch U-100 Insulin) Novolog U-100 Insulin aspart 7 units subcut TIDWM 12/27/21 03/01/23 History ondansetron 4 mg disintegrating 4 mg PO Q8H PRN nausea and 12/28/21 03/01/23 Rx tablet vomiting #14 tabs atropine 1 % eye drops 2 drp sublingual Q4H PRN Secretions 05/20/22 03/01/23 History bisacodyl 10 mg rectal suppository 10 mg RECTAL DAILY PRN Constipation 05/20/22 03/01/23 History cholecalciferol (vitamin D3) 25 25 mcg PO DAILY 05/20/22 03/01/23 History mcg (1,000 unit) capsule citalopram 10 mg tablet 30 mg PO DAILY 05/20/22 03/01/23 History hydroxyzine HCl 25 mg tablet 25 mg PO HS 05/20/22 03/01/23 History risperidone 1 mg tablet 1 mg PO BID 05/20/22 03/01/23 History acetaminophen 650 mg rectal 650 mg RECTAL Q4-5H PRN Fever Or 05/29/22 03/01/23 History suppository Pa
[2023-03-01 06:25] LABS: Basophils Absolute Auto 0.1 K/mm3 (0.0-0.1); Basophils Percent Auto 0.5 % (0.2-1.2); Eosinophils Absolute Auto 0.1 K/mm3 (0-0.3); Eosinophils Percent Auto 0.4 % (0-4.4); Hematocrit 34.3 % (42.0-52.0); Immature Granulocyte Absolute 0.05 K/mm3 (0.00-0.031); Immature Granulocyte Percent A 0.3 % (0-0.5); Lymphocytes Absolute Auto 1.29 K/mm3 (0.9-3.2); Lymphocytes Percent Auto 8.6 % (18.3-44.2); Mean Corpuscular HGB Conc 32.1 g/dl (32-36); Mean Corpuscular Hemoglobin 28.1 pg (26-34); Mean Corpuscular Volume 87.5 fl (80-100); Mean Platelet Volume 9.3 fl (7.4-10.4); Monocytes Absolute Auto 0.9 K/mm3 (0.1-0.6); Monocytes Percent Auto 5.7 % (2.6-8.5); Neutrophils Absolute Auto 12.7 K/mm3 (1.3-6.7); Neutrophils Percent Auto 84.5 % (45.5-73.1); Platelet Count Result 358 k/mm3 (150-375); Red Blood Count 3.92 M/mm3 (4.6-6.20); Red Cell Distribution Width 13.1 % (11.5-14.5)
[2023-03-01 06:34] LABS: Lactic Acid Reflex 1.3 mmol/L (0.7-2.0)
[2023-03-01 06:35] LABS: Anion Gap 7 mmol/L (8-16); Blood Urea Nitrogen 10 mg/dL (9-20); Calcium 8.1 mg/dL (8.4-10.2); Carbon Dioxide 27 mmol/L (22-30); Chloride 104 mmol/L (98-107); Estimated CRCL calculation 74 ml/min; Estimated Glomerular Filt Rate > 60; Glucose 216 mg/dL (65-110); Sodium 138 mmol/L (137-145)
--- NOTE | 2023-03-01 08:14 | PM.IMPN ---
Progress Note: A&P Assessment and Plan (1) Acute constipation: Code(s): K59.00 - Constipation, unspecified Status: Acute (2) Fecal impaction: Code(s): K56.41 - Fecal impaction Status: Acute (3) Stercoral colitis: Code(s): K52.89 - Other specified noninfective gastroenteritis and colitis Status: Acute (4) Sepsis: Qualifiers: Sepsis acute organ dysfunction status: unspecified Sepsis type: sepsis due to unspecified organism Qualified Code(s): A41.9 - Sepsis, unspecified organism Code(s): A41.9 - Sepsis, unspecified organism Status: Acute (5) Dehydration: Code(s): E86.0 - Dehydration Status: Acute Plan Acute infective gastroenteritis and fecal impaction Patient presents with nausea vomiting and diarrhea. The patient's diarrhea is likely due to overflow incontinence in the setting of fecal impaction. Leukocytosis Patient's on zosyn in the ED, continue Received IV fluid, will continue Chronic anemia No obvious bleeding Follow CBC Sepsis Patient's lactic acid is elevated. elevated temperature but not quite truly febrile, tachycardia, tachypnea, and leukocytosis. blood cultures are pending. Will place patient on empiric antibiotic therapy with Zosyn for possible colitis. type 2 diabetes mellitus glucoses are currently within target range for expected inpatient value. decrease the patient's long-acting insulin to 8 units from [address] patient on moderate sliding scale insulin with Accu-Cheks a.c. HS and hypoglycemia protocol as needed. Subjective Date/time seen: 03/01/23 08:14 Interval history: I saw the patient today, patient is lethargic, reluctant to reply to answer any question, patient has no obvious distress, patient denies nausea vomiting Exam Narrative: GENERAL: Pleasant, in no acute distress. Well-nourished. - EYES: EOMI. Anicteric. - HENT: Moist mucous membranes. - LUNGS: Clear to auscultation bilaterally, no wheezing, rhonchi, or rales. - CARDIOVASCULAR: Regular rate and rhythm. No murmur. No JVD. - ABDOMEN: Soft, non-tender and non-distended. No palpable masses. - EXTREMITIES: No edema. Peripheral pulses 2+. Non-tender. - NEUROLOGIC: No focal neurological deficits. CN II-XII grossly intact. - PSYCHIATRIC: Awake unable to evaluate orientation Appropriate mood and affect. - SKIN: No rashes or lesions. Warm. - LYMPH: No cervical lymphadenopathy. Objective Data Vital Signs Vital Signs: Vital Signs - 24 hr 02/28/23 18:38 02/28/23 21:31 03/01/23 00:27 Temperature 99.8 F H 99.2 F Pulse Rate 107 H 91 Respiratory Rate 22 H Blood Pressure 171/88 H 192/109 H Pulse Oximetry 99 99 Oxygen Delivery Room Air 03/01/23 01:48 03/01/23 04:00 03/01/23 03:56 Temperature 97.7 F Pulse Rate 64 75 Respiratory Rate 16 Blood Pressure 162/105 H 156/102 H Pulse Oximetry 96 Oxygen Delivery Intake/Output Intake/Output: Intake & Output 02/26/23 02/27/23 02/28/23 03/01/23 23:59 23:59 23:59 23:59 Intake Total 1000 1050 Balance 1000 1050 Meds/Results Medications: Active Medications Generic Name Dose Route Start Last Admin Trade Name [facility] PRN Reason Stop Dose Admin Acetaminophen 650 mg 03/01/23 04:37 Acetaminophen 650 Mg Suppository RECTAL Q6H PRN Fever Or Pain Ascorbic Acid 500 mg 03/01/23 09:00 Ascorbic Acid 500 Mg Tablet PO BID DARRIAN Atropine Sulfate 2 drop 03/01/23 04:37 Atropine Sulfate 1% Ophth Soln 5 Ml Bottle SUBLINGUAL Q4H PRN Secretions Bisacodyl 10 mg 03/01/23 09:00 Bisacodyl 10 Mg Suppository RECTAL 03/04/23 08:59 DAILY DARRIAN Dextrose 12.5 gm 03/01/23 04:50 Dextrose 50% 25 Gm/50 Ml Syringe IV PUSH PRN PRN Hypoglycemia Protocol Famotidine 20 mg 03/01/23 09:00 Famotidine 20 Mg Tablet PO DAILY DARRIAN Glucagon 1 mg 03/01/23 04:50 Glucagon For Inj 1 Mg Vial IM PRN PRN
[2023-03-01 08:24] LABS: Glucose Point of Care 200 mg/dl (65-105)
[2023-03-01] MEDS: ASCORBIC ACID 500 MG TABLET PO ×2 (09:43→17:41)
[2023-03-01] MEDS: risperiDONE 1 MG TABLET PO ×2 (09:43→17:41)
[2023-03-01] MEDS: BISACODYL 10 MG SUPPOSITORY RECTAL (09:43)
[2023-03-01] MEDS: FAMOTIDINE 20 MG TABLET PO (09:43)
[2023-03-01] MEDS: THERAPEUTIC MULTIVITAMINS/MINERALS TAB (*BKC) 1 TABLET PO (09:44)
[2023-03-01] MEDS: CHOLECALCIFEROL 1,000 UNITS TABLET 1000 UNITS PO (09:44)
[2023-03-01] MEDS: polyethylene glycoL 3350 17 GM POWD.PACK PO ×2 (09:48→17:41)
[2023-03-01 12:09] LABS: Glucose Point of Care 259 mg/dl (65-105)
[2023-03-01] MEDS: INSULIN ASPART (*BKC) 100 UNITS/ML SUB-Q ×2 (12:31→20:59)
[2023-03-01 17:09] LABS: Glucose Point of Care 148 mg/dl (65-105)
[2023-03-01 20:47] LABS: Glucose Point of Care 227 mg/dl (65-105)
[2023-03-01] MEDS: hydrOXYzine HCL 25 MG TABLET PO (20:57)
[2023-03-01] MEDS: INSULIN GLARGINE (*BKC) 100 UNITS/ML 8 UNITS SUB-Q (20:57)
[2023-03-02] VITALS: PULSE 63
[2023-03-02] MEDS: PIPERACILLN/TAZ 3.375GM/NS50ML 3.375 GM/50 ML BAG IVPB (03:42)
[2023-03-02] MEDS: SODIUM CHLORIDE 0.9% IV 1,000 ML 100 ML IV CONT (03:42)
[2023-03-02 04:00] VITALS: PULSE 52
[2023-03-02 05:16] VITALS: BP 173/85; PULSE 61; RESP 16; TEMP 36.5; O2SAT 100
[2023-03-02 06:12] LABS: Basophils Absolute Auto 0.1 K/mm3 (0.0-0.1); Basophils Percent Auto 0.9 % (0.2-1.2); Eosinophils Absolute Auto 0.6 K/mm3 (0-0.3); Eosinophils Percent Auto 8.2 % (0-4.4); Hematocrit 33.8 % (42.0-52.0); Hemoglobin 10.7 g/dL (14.0-18.0); Immature Granulocyte Absolute 0.02 K/mm3 (0.00-0.031); Immature Granulocyte Percent A 0.3 % (0-0.5); Lymphocytes Percent Auto 18.2 % (18.3-44.2); Mean Corpuscular HGB Conc 31.7 g/dl (32-36); Mean Corpuscular Hemoglobin 27.6 pg (26-34); Mean Corpuscular Volume 87.3 fl (80-100); Mean Platelet Volume 9.4 fl (7.4-10.4); Monocytes Absolute Auto 0.7 K/mm3 (0.1-0.6); Monocytes Percent Auto 9.1 % (2.6-8.5); Neutrophils Absolute Auto 4.9 K/mm3 (1.3-6.7); Neutrophils Percent Auto 63.3 % (45.5-73.1); Platelet Count Result 355 k/mm3 (150-375); Red Blood Count 3.87 M/mm3 (4.6-6.20); Red Cell Distribution Width 13.2 % (11.5-14.5); White Blood Count 7.7 K/mm3 (4.5-10.0)
[2023-03-02 06:26] LABS: Anion Gap 6 mmol/L (8-16); Blood Urea Nitrogen 5 mg/dL (9-20); Calcium 7.9 mg/dL (8.4-10.2); Carbon Dioxide 27 mmol/L (22-30); Chloride 107 mmol/L (98-107); Estimated CRCL calculation 66 ml/min; Estimated Glomerular Filt Rate > 60; Glucose 134 mg/dL (65-110); Potassium 3.4 mmol/L (3.4-5.0); Sodium 140 mmol/L (137-145)
[2023-03-02 08:00] VITALS: PULSE 61; RESP 16; O2SAT 100
[2023-03-02 08:15] LABS: Glucose Point of Care 146 mg/dl (65-105)
--- NOTE | 2023-03-02 09:11 | PM.IMPN ---
Progress Note: A&P Assessment and Plan (1) Acute constipation: Code(s): K59.00 - Constipation, unspecified Status: Acute (2) Fecal impaction: Code(s): K56.41 - Fecal impaction Status: Acute (3) Stercoral colitis: Code(s): K52.89 - Other specified noninfective gastroenteritis and colitis Status: Acute (4) Sepsis: Qualifiers: Sepsis acute organ dysfunction status: unspecified Sepsis type: sepsis due to unspecified organism Qualified Code(s): A41.9 - Sepsis, unspecified organism Code(s): A41.9 - Sepsis, unspecified organism Status: Acute (5) Dehydration: Code(s): E86.0 - Dehydration Status: Acute Plan Acute infective gastroenteritis and fecal impaction Patient presents with nausea vomiting and diarrhea. The patient's diarrhea is likely due to overflow incontinence in the setting of fecal impaction. Leukocytosis Patient's on zosyn in the ED, continue Received IV fluid, Leukocytosis resolved Change to Augmentin p.o. Repeated KUB suggest a moderate stool in rectum add lactulose po am and c/w MiraLax p.o. Chronic anemia No obvious bleeding Follow CBC, stable Sepsis Patient's lactic acid is elevated. elevated temperature but not quite truly febrile, tachycardia, tachypnea, and leukocytosis. blood cultures are pending. Will place patient on empiric antibiotic therapy with Zosyn for possible colitis. type 2 diabetes mellitus glucoses are currently within target range for expected inpatient value. decrease the patient's long-acting insulin to 8 units from [address] patient on moderate sliding scale insulin with Accu-Cheks a.c. HS and hypoglycemia protocol as needed. History of CVA, Normal Risk of aspiration Consult speech speech therapist for evaluation Subjective Date/time seen: 03/02/23 09:11 Interval history: I saw the patient today, patient has nonverbal, taken MiraLax yesterday patient has no obvious distress, patient denies nausea vomiting Exam Narrative: GENERAL: Pleasant, in no acute distress. Well-nourished. - EYES: EOMI. Anicteric. - HENT: Moist mucous membranes. - LUNGS: Clear to auscultation bilaterally, no wheezing, rhonchi, or rales. - CARDIOVASCULAR: Regular rate and rhythm. No murmur. No JVD. - ABDOMEN: Soft, non-tender and non-distended. No palpable masses. - EXTREMITIES: No edema. Peripheral pulses 2+. Non-tender. - NEUROLOGIC: No focal neurological deficits. CN II-XII grossly intact. - PSYCHIATRIC: Awake not oriented orientation Appropriate mood and affect. - SKIN: No rashes or lesions. Warm. - LYMPH: No cervical lymphadenopathy. Objective Data Vital Signs Vital Signs: Vital Signs - 24 hr 03/01/23 09:45 03/01/23 14:00 03/01/23 12:00 Temperature 97.9 F Pulse Rate 64 69 68 Respiratory Rate 16 18 Blood Pressure 128/83 Pulse Oximetry 96 99 Oxygen Delivery Room Air 03/01/23 16:00 03/01/23 19:31 03/01/23 20:00 Temperature 97.6 F Pulse Rate 76 68 72 Respiratory Rate 16 Blood Pressure 163/96 H Pulse Oximetry 98 Oxygen Delivery 03/02/23 00:00 03/02/23 04:00 03/02/23 05:16 Temperature 97.7 F Pulse Rate 63 52 L 61 Respiratory Rate 16 Blood Pressure 173/85 H Pulse Oximetry 100 Oxygen Delivery Intake/Output Intake/Output: Intake & Output 02/27/23 02/28/23 03/01/23 03/02/23 23:59 23:59 23:59 23:59 Intake Total 1000 3160 1000 Balance 1000 3160 1000 Meds/Results Medications: Active Medications Generic Name Dose Route Start Last Admin Trade Name Freq PRN Reason Stop Dose Admin Acetaminophen 650 mg 03/01/23 04:37 Acetaminophen 650 Mg Suppository RECTAL Q6H PRN Fever Or Pain Ascorbic Acid 500 mg 03/01/23 09:00 03/01/23 17:41 Ascorbic Acid 500 Mg Tablet PO 500 mg BID DARRIAN Administration Atropine Sulfate 2 drop 03/01/23 04:37 Atropine Sulfate 1% Ophth Soln 5 Ml Bottle SUBLINGUAL Q4H PRN
[2023-03-02 12:13] LABS: Glucose Point of Care 151 mg/dl (65-105)
[2023-03-02 13:10] VITALS: BMI 21.7
[2023-03-02 14:00] VITALS: BP 176/90; PULSE 60; RESP 16; TEMP 36.3; O2SAT 100
[2023-03-02 17:38] LABS: Glucose Point of Care 262 mg/dl (65-105)
[2023-03-02] MEDS: risperiDONE 1 MG TABLET PO (18:20)
[2023-03-02] MEDS: ASCORBIC ACID 500 MG TABLET PO (18:21)
[2023-03-02] MEDS: polyethylene glycoL 3350 17 GM POWD.PACK PO (18:21)
[2023-03-02] MEDS: INSULIN ASPART (*BKC) 100 UNITS/ML SUB-Q (18:22)
[2023-03-02 20:34] VITALS: PULSE 85; RESP 18; TEMP 36.6; O2SAT 100
[2023-03-02] MEDS: GLUCOSE ORAL GEL 15 GM OF GLUCSE IN 37.5 GM TUBE PO (20:55)
[2023-03-02 22:07] LABS: Glucose Point of Care 110 mg/dl (65-105)
[2023-03-02 22:07] LABS: Glucose Point of Care 60 mg/dl (65-105)
[2023-03-03 00:49] LABS: Glucose Point of Care 136 mg/dl (65-105)
[2023-03-03 05:23] VITALS: BP 172/89; PULSE 65; RESP 18; TEMP 36.8; O2SAT 93
[2023-03-03 08:22] LABS: Glucose Point of Care 117 mg/dl (65-105)
[2023-03-03] MEDS: ASCORBIC ACID 500 MG TABLET PO ×2 (09:11→17:13)
[2023-03-03] MEDS: risperiDONE 1 MG TABLET PO ×2 (09:11→17:13)
[2023-03-03] MEDS: CHOLECALCIFEROL 1,000 UNITS TABLET 1000 UNITS PO (09:11)
[2023-03-03] MEDS: FAMOTIDINE 20 MG TABLET PO (09:11)
[2023-03-03] MEDS: THERAPEUTIC MULTIVITAMINS/MINERALS TAB (*BKC) 1 TABLET PO (09:11)
[2023-03-03] MEDS: polyethylene glycoL 3350 17 GM POWD.PACK PO ×2 (09:11→17:13)
[2023-03-03] MEDS: AMOXICILLIN/CLAVULANATE K 875-125 MG TAB 1 TABLET PO ×2 (09:11→21:24)
[2023-03-03] MEDS: BISACODYL 10 MG SUPPOSITORY RECTAL (09:12)
[2023-03-03] MEDS: SILVERGEL (ELTA) 45 ML 1 APPLIC TOPICAL (09:12)
[2023-03-03] MEDS: LACTULOSE 20 GM/30 ML UDC PO (09:12)
[2023-03-03 10:00] LABS: Basophils Absolute Auto 0.1 K/mm3 (0.0-0.1); Eosinophils Absolute Auto 0.4 K/mm3 (0-0.3); Eosinophils Percent Auto 5.5 % (0-4.4); Hematocrit 36.6 % (42.0-52.0); Hemoglobin 11.9 g/dL (14.0-18.0); Immature Granulocyte Absolute 0.02 K/mm3 (0.00-0.031); Immature Granulocyte Percent A 0.3 % (0-0.5); Lymphocytes Absolute Auto 0.93 K/mm3 (0.9-3.2); Lymphocytes Percent Auto 13.2 % (18.3-44.2); Mean Corpuscular HGB Conc 32.5 g/dl (32-36); Mean Corpuscular Hemoglobin 28.1 pg (26-34); Mean Corpuscular Volume 86.5 fl (80-100); Mean Platelet Volume 9.2 fl (7.4-10.4); Monocytes Absolute Auto 0.5 K/mm3 (0.1-0.6); Monocytes Percent Auto 7.1 % (2.6-8.5); Neutrophils Absolute Auto 5.1 K/mm3 (1.3-6.7); Neutrophils Percent Auto 72.9 % (45.5-73.1); Platelet Count Result 415 k/mm3 (150-375); Red Blood Count 4.23 M/mm3 (4.6-6.20); Red Cell Distribution Width 13.1 % (11.5-14.5); White Blood Count 7.1 K/mm3 (4.5-10.0)
[2023-03-03 10:07] LABS: Anion Gap 8 mmol/L (8-16); Blood Urea Nitrogen 3 mg/dL (9-20); Calcium 8.6 mg/dL (8.4-10.2); Carbon Dioxide 28 mmol/L (22-30); Chloride 103 mmol/L (98-107); Estimated CRCL calculation 74 ml/min; Estimated Glomerular Filt Rate > 60; Glucose 203 mg/dL (65-110); Potassium 3.2 mmol/L (3.4-5.0); Sodium 139 mmol/L (137-145)
[2023-03-03 12:08] LABS: Glucose Point of Care 235 mg/dl (65-105)
[2023-03-03] MEDS: INSULIN ASPART (*BKC) 100 UNITS/ML SUB-Q (13:09)
[2023-03-03 14:00] VITALS: BP 145/81; PULSE 81; RESP 22; TEMP 36.9; O2SAT 100
--- NOTE | 2023-03-03 14:28 | PCSTNOTE ---
Attempted beside swallow evaluation on this date; patient refused. Will try again on 03/04/23.
--- NOTE | 2023-03-03 17:08 | PM.IMPN ---
Progress Note: A&P Assessment and Plan (1) Acute constipation: Code(s): K59.00 - Constipation, unspecified Status: Acute (2) Fecal impaction: Code(s): K56.41 - Fecal impaction Status: Acute (3) Stercoral colitis: Code(s): K52.89 - Other specified noninfective gastroenteritis and colitis Status: Acute (4) Sepsis: Qualifiers: Sepsis acute organ dysfunction status: unspecified Sepsis type: sepsis due to unspecified organism Qualified Code(s): A41.9 - Sepsis, unspecified organism Code(s): A41.9 - Sepsis, unspecified organism Status: Acute (5) Dehydration: Code(s): E86.0 - Dehydration Status: Acute Plan Acute infective gastroenteritis and fecal impaction Patient presents with nausea vomiting and diarrhea. The patient's diarrhea is likely due to overflow incontinence in the setting of fecal impaction. Leukocytosis Patient's on zosyn in the ED, continue Received IV fluid, Leukocytosis resolved Change to Augmentin p.o. Repeated KUB suggest a moderate stool in rectum add lactulose po am and c/w MiraLax p.o. Patient declined taking lactulose and MiraLax in past 2 days Have discussed the case with the patient's nurse, will provide patient stool softener and laxative medication before feeding patient Chronic anemia No obvious bleeding Follow CBC, stable Sepsis Patient's lactic acid is elevated. elevated temperature but not quite truly febrile, tachycardia, tachypnea, and leukocytosis. blood cultures are pending. Will place patient on empiric antibiotic therapy with Zosyn for possible colitis. type 2 diabetes mellitus glucoses are currently within target range for expected inpatient value. decrease the patient's long-acting insulin to 8 units from [address] patient on moderate sliding scale insulin with Accu-Cheks a.c. HS and hypoglycemia protocol as needed. History of CVA, Normal Risk of aspiration Consult speech speech therapist for evaluation Was constipation resolves, patient will be sent back to half-way Subjective Date/time seen: 03/03/23 17:08 Interval history: I saw and examined the patient today. Patient is nonverbal, has no obvious distress. Has no bowel movement in past 2 days. Per nurse report, patient declined taking MiraLax and lactulose in past 2 days Exam Narrative: GENERAL: Pleasant, in no acute distress. Well-nourished. - EYES: EOMI. Anicteric. - HENT: Moist mucous membranes. - LUNGS: Clear to auscultation bilaterally, no wheezing, rhonchi, or rales. - CARDIOVASCULAR: Regular rate and rhythm. No murmur. No JVD. - ABDOMEN: Soft, non-tender and non-distended. No palpable masses. - EXTREMITIES: No edema. Peripheral pulses 2+. Non-tender. - NEUROLOGIC: No focal neurological deficits. CN II-XII grossly intact. - PSYCHIATRIC: Awake not oriented orientation Appropriate mood and affect. - SKIN: No rashes or lesions. Warm. - LYMPH: No cervical lymphadenopathy. Objective Data Vital Signs Vital Signs: Vital Signs - 24 hr 03/02/23 20:34 03/02/23 20:00 03/03/23 05:23 Temperature 97.8 F 98.2 F Pulse Rate 85 65 Respiratory Rate 18 18 Blood Pressure 172/89 H Pulse Oximetry 100 93 Oxygen Delivery Room Air 03/03/23 08:00 03/03/23 14:00 Temperature 98.4 F Pulse Rate 81 Respiratory Rate 22 H Blood Pressure 145/81 H Pulse Oximetry 100 Oxygen Delivery Room Air Intake/Output Intake/Output: Intake & Output 02/28/23 03/01/23 03/02/23 03/03/23 23:59 23:59 23:59 23:59 Intake Total 1000 3160 1240 620 Balance 1000 3160 1240 620 Meds/Results Medications: Active Medications Generic Name Dose Route Start Last Admin Trade Name Freq PRN Reason Stop Dose Admin Acetaminophen 650 mg 03/01/23 04:37 Acetaminophen 650 Mg Suppository RECTAL Q6H PRN Fever Or Pain Amoxicillin/Clavulanate Potassium 1 tablet 03/02/23 21:00 03/03/23 09:11 Amoxicillin
[2023-03-03 17:31] LABS: Glucose Point of Care 117 mg/dl (65-105)
[2023-03-03 21:00] VITALS: BP 130/71; PULSE 83; RESP 18; TEMP 36.8; O2SAT 99
[2023-03-03] MEDS: hydrOXYzine HCL 25 MG TABLET PO (21:24)
[2023-03-03 21:44] LABS: Glucose Point of Care 144 mg/dl (65-105)
[2023-03-04 04:53] VITALS: BP 147/79; PULSE 65; RESP 16; TEMP 36.7; O2SAT 99
[2023-03-04 08:26] LABS: Glucose Point of Care 119 mg/dl (65-105)
[2023-03-04] MEDS: polyethylene glycoL 3350 17 GM POWD.PACK PO (08:58)
[2023-03-04] MEDS: THERAPEUTIC MULTIVITAMINS/MINERALS TAB (*BKC) 1 TABLET PO (08:58)
[2023-03-04] MEDS: AMOXICILLIN/CLAVULANATE K 875-125 MG TAB 1 TABLET PO (08:58)
[2023-03-04] MEDS: FAMOTIDINE 20 MG TABLET PO (08:59)
[2023-03-04] MEDS: ASCORBIC ACID 500 MG TABLET PO (08:59)
[2023-03-04] MEDS: CHOLECALCIFEROL 1,000 UNITS TABLET 1000 UNITS PO (08:59)
[2023-03-04] MEDS: LACTULOSE 20 GM/30 ML UDC PO (08:59)
[2023-03-04] MEDS: risperiDONE 1 MG TABLET PO (08:59)
[2023-03-04] MEDS: POTASSIUM CHLORIDE 20 MEQ PACKET (FOR LIQUID) PO (09:02)
[2023-03-04] MEDS: SILVERGEL (ELTA) 45 ML 1 APPLIC TOPICAL (09:07)
[2023-03-04 09:27] LABS: Basophils Absolute Auto 0.1 K/mm3 (0.0-0.1); Basophils Percent Auto 1.5 % (0.2-1.2); Eosinophils Absolute Auto 0.5 K/mm3 (0-0.3); Hemoglobin 11.3 g/dL (14.0-18.0); Immature Granulocyte Absolute 0.03 K/mm3 (0.00-0.031); Immature Granulocyte Percent A 0.4 % (0-0.5); Lymphocytes Absolute Auto 1.35 K/mm3 (0.9-3.2); Lymphocytes Percent Auto 20.1 % (18.3-44.2); Mean Corpuscular HGB Conc 31.4 g/dl (32-36); Mean Corpuscular Hemoglobin 27.6 pg (26-34); Mean Corpuscular Volume 87.8 fl (80-100); Mean Platelet Volume 9.1 fl (7.4-10.4); Monocytes Absolute Auto 0.7 K/mm3 (0.1-0.6); Monocytes Percent Auto 10.3 % (2.6-8.5); Neutrophils Absolute Auto 4.1 K/mm3 (1.3-6.7); Neutrophils Percent Auto 60.7 % (45.5-73.1); Platelet Count Result 412 k/mm3 (150-375); Red Cell Distribution Width 13.2 % (11.5-14.5); White Blood Count 6.7 K/mm3 (4.5-10.0)
[2023-03-04 09:37] LABS: Anion Gap 7 mmol/L (8-16); Blood Urea Nitrogen 3 mg/dL (9-20); Calcium 8.5 mg/dL (8.4-10.2); Carbon Dioxide 26 mmol/L (22-30); Chloride 105 mmol/L (98-107); Estimated CRCL calculation 74 ml/min; Estimated Glomerular Filt Rate > 60; Glucose 120 mg/dL (65-110); Potassium 3.4 mmol/L (3.4-5.0); Sodium 138 mmol/L (137-145)
--- NOTE | 2023-03-04 11:18 | PM.DS ---
DS: Admitting Diagnosis Discharge Date March 04, 2023 Admitting Diagnosis Stercoral colitis DS: Discharge Diagnosis Discharge Diagnosis (1) Acute constipation: Code(s): K59.00 - Constipation, unspecified Status: Acute (2) Fecal impaction: Code(s): K56.41 - Fecal impaction Status: Acute (3) Stercoral colitis: Code(s): K52.89 - Other specified noninfective gastroenteritis and colitis Status: Acute (4) Sepsis: Qualifiers: Sepsis acute organ dysfunction status: unspecified Sepsis type: sepsis due to unspecified organism Qualified Code(s): A41.9 - Sepsis, unspecified organism Code(s): A41.9 - Sepsis, unspecified organism Status: Acute (5) Dehydration: Code(s): E86.0 - Dehydration Status: Acute Plan Acute infective gastroenteritis and fecal impaction Patient presents with nausea vomiting and diarrhea. The patient's diarrhea is likely due to overflow incontinence in the setting of fecal impaction. Leukocytosis Patient's on zosyn in the ED, continue Received IV fluid, Leukocytosis resolved Change to Augmentin p.o. Repeated KUB suggest a moderate stool in rectum add lactulose po am and c/w MiraLax p.o. Patient declined taking lactulose and MiraLax in past 2 days Have discussed the case with the patient's nurse, will provide patient stool softener and laxative medication before feeding patient Chronic anemia No obvious bleeding Follow CBC, stable Sepsis Patient's lactic acid is elevated. elevated temperature but not quite truly febrile, tachycardia, tachypnea, and leukocytosis. blood cultures are pending. Will place patient on empiric antibiotic therapy with Zosyn for possible colitis. type 2 diabetes mellitus glucoses are currently within target range for expected inpatient value. decrease the patient's long-acting insulin to 8 units from [address] patient on moderate sliding scale insulin with Accu-Cheks a.c. HS and hypoglycemia protocol as needed. History of CVA, Normal Risk of aspiration Consult speech speech therapist for evaluation Was constipation resolves, patient will be sent back to [facility] DS: Summary Hospital Course Hospital Course: Patient was admitted for stercoral colitis. He also had fecal impaction. He was on loperamide at the facility. This will be stopped on discharge. Antibiotics on discharge for 5 more days. He is now disimpacted and having several bowel movements per day. This will need to be followed up with as an outpatient. Otherwise medically stable and can be discharged. He is also eating well. Time Spent with Patient Time attestation: Total time spent providing and/or coordinating discharge services: Exam Narrative: GENERAL: Pleasant, in no acute distress. Well-nourished. - EYES: EOMI. Anicteric. - HENT: Moist mucous membranes. - LUNGS: Clear to auscultation bilaterally, no wheezing, rhonchi, or rales. - CARDIOVASCULAR: Regular rate and rhythm. No murmur. No JVD. - ABDOMEN: Soft, non-tender and non-distended. No palpable masses. - EXTREMITIES: No edema. Peripheral pulses 2+. Non-tender. - NEUROLOGIC: No focal neurological deficits. CN II-XII grossly intact. - PSYCHIATRIC: Awake not oriented orientation Appropriate mood and affect. - SKIN: No rashes or lesions. Warm. - LYMPH: No cervical lymphadenopathy. DS: Data Data Completed and Pending Labs on day of discharge: Labs from last 24 hours 03/04/23 03/04/23 03/03/23 09:10 08:23 21:04 WBC 6.7 RBC 4.10 L Hgb 11.3 L Hct 36.0 L MCV 87.8 MCH 27.6 MCHC 31.4 L RDW 13.2 Plt Count 412 H MPV 9.1 Immature Gran % (Auto) 0.4 Neut % (Auto) 60.7 Lymph % (Auto) 20.1 Merrick % (Auto) 10.3 H Eos % (Auto) 7.0 H Baso % (Auto) 1.5 H Lymph # (Auto) 1.35 Merrick # (Auto) 0.7 H Eos # (Auto) 0.5 H Baso # (Auto) 0.1 Abs Immat Gran (auto) 0.03 Absolute Neuts (auto)
[2023-03-04 11:57] LABS: Glucose Point of Care 205 mg/dl (65-105)
[2023-03-04 13:13] LABS: SARS-CoV-2 RNA PCR Negative (Negative)
== END 2023-03-04 14:02 | disposition home or self-care (01) | DRG 392 ==
LOC: ANHED 03-01 00:50 → ANH3MED 03-01 03:37
PROVIDERS: Hospitalist; Admitting Provider Internal Medicine; Emergency Provider Physician Assistant; Visit Provider Chiropractor
DX: A09 Infectious gastroenteritis and colitis, unspecified (principal); I12.9 Hypertensive chronic kidney disease with stage 1 through stage 4 chronic kidney disease, or unspecified chronic kidney disease; E11.22 Type 2 diabetes mellitus with diabetic chronic kidney disease; N18.9 Chronic kidney disease, unspecified; K52.89 Other specified noninfective gastroenteritis and colitis; I50.9 Heart failure, unspecified; E86.0 Dehydration; K56.41 Fecal impaction; K59.00 Constipation, unspecified; I25.10 Atherosclerotic heart disease of native coronary artery without angina pectoris; D72.829 Elevated white blood cell count, unspecified; D64.9 Anemia, unspecified; F41.8 Other specified anxiety disorders; Z20.822 Contact with and (suspected) exposure to COVID-19; I69.391 Dysphagia following cerebral infarction; R13.10 Dysphagia, unspecified; I69.320 Aphasia following cerebral infarction; I25.2 Old myocardial infarction; Z95.5 Presence of coronary angioplasty implant and graft
CPT/HCPCS: 36415; 71045; 74018; 74177; 80048; 80053; 81001; 82948; 83605; 83690; 85025; 87040; 87147; 87181; 87186; 87635; 92610; 96361; 96365; 96375; 99285; A9270; G0378; J1815; J2405; J2543; J7030; Q9967